=== PATIENT | female | born 1980 | race Caucasian/White ===

== ENCOUNTER 2016-10-09 23:25 | Emergency (ER) | payer OTHER ==
[2016-10-10 00:26] LABS: Basophils # (A) 0.1 k/uL (0-0.2); Basophils % (A) 1 %; CH 30.1; Eosinophils # (A) 0.2 k/uL (0-0.7); Eosinophils % (A) 3 %; HCT 44.2 % (34.0-46.0); HDW 2.48; HGB 14.6 gm/dL (11.4-16.0); Luc % (Auto) 4; Lymphocytes # (A) 3.2 k/uL (1.0-4.8); Lymphocytes % (A) 42 %; MCH 29.3 pg (25.0-35.0); Mean Platelet Volume 6.5; Monocytes # (A) 0.5 k/uL (0-1.0); Monocytes % (A) 7 %; Neutrophils # (A) 3.4 k/uL (1.3-7.7); Neutrophils % (A) 44 %; RBC 4.97 m/uL (3.80-5.40); RDW 12.8 % (11.5-15.5); WBC 7.7 k/uL (3.8-10.6); WBC (Perox) 7.56
[2016-10-10 00:39] LABS: ALT 29 U/L (9-52); AST 15 U/L (14-36); Alkaline Phosphatase 67 U/L (38-126); Amylase 39 U/L (30-110); Anion Gap 10 mmol/L; Blood Urea Nitrogen 11 mg/dL (7-17); Calcium 9.3 mg/dL (8.4-10.2); Carbon Dioxide 25 mmol/L (22-30); Chloride 103 mmol/L (98-107); Glucose 110 mg/dL (74-99); Magnesium 1.7 mg/dL (1.6-2.3); Non-African American GFR(MDRD) >60 (>60 ml/min/1.73 sqM); Potassium 3.7 mmol/L (3.5-5.1); Sodium 138 mmol/L (137-145); Total Bilirubin 0.4 mg/dL (0.2-1.3); Total Protein 6.9 g/dL (6.3-8.2)
--- NOTE | 2016-10-10 01:09 | XR ---
EXAM: XR Chest, 2 Views CLINICAL HISTORY: Reason: Chest Pain TECHNIQUE: Frontal and lateral views of the chest. COMPARISON: CXR 08/01/14 FINDINGS: Lungs: Unremarkable. No consolidation. Pleural space: Unremarkable. No pneumothorax. Heart: Unremarkable. No cardiomegaly. Mediastinum: Unremarkable. Bones/joints: Mild multilevel degenerative changes of the spine. IMPRESSION: Unremarkable chest x-rays.
--- NOTE | 2016-10-10 02:55 | ED ---
Chest Pain HPI - General Chief Complaint: Chest Pain Stated Complaint: chest/neck/head pain Time Seen by Provider: 10/09/16 23:42 Source: patient Mode of arrival: wheelchair Limitations: no limitations - History of Present Illness MD Complaint: chest pain, other (Headache) Onset/Timin -: hour(s) Onset: during rest Pain Location: substernal Pain Radiation: none Severity: moderate Quality: aching Consistency: intermittent Improves With: nothing Worsens With: nothing Treatments Prior to Arrival: none - Related Data Home Medications Medication Instructions Recorded Confirmed Omeprazole [PriLOSEC] 20 mg PO DAILY PRN 08/06/14 10/09/16 Cyclobenzaprine [Flexeril] 10 mg PO DAILY 12/21/15 10/09/16 Naproxen 500 mg PO DAILY 12/21/15 10/09/16 Acetaminophen Tab [Tylenol Tab] 1,000 mg PO DAILY 10/09/16 10/09/16 Allergies Allergy/AdvReac Type Severity Reaction Status Date / Time No Known Allergies Allergy Verified 10/09/16 23:46 Review of Systems ROS Statement: Those systems with pertinent positive or pertinent negative responses have been documented in the HPI. ROS Other: All systems not noted in ROS Statement are negative. Constitutional: Denies: fever, chills Eyes: Denies: vision change Respiratory: Denies: cough, dyspnea Cardiovascular: Denies: chest pain, palpitations, syncope Gastrointestinal: Denies: abdominal pain, nausea, vomiting Genitourinary: Denies: dysuria, hematuria Skin: Denies: rash Neurological: Reports: headache. Denies: weakness, numbness, paresthesias EKG Findings - EKG Results: EKG: interpreted by RASHMI FREEMAN, sinus rhythm (Rate 88 bpm), normal axis, normal QRS, normal ST/T, no acute changes Past Medical History Past Medical History: Coronary Artery Disease (CAD), Hyperlipidemia, Hypertension, Syncope Additional Past Medical History / Comment(s): Diverticulitis History of Any Multi-Drug Resistant Organisms: None Reported Past Surgical History: Adenoidectomy, Bowel Resection, Tonsillectomy Additional Past Surgical History / Comment(s): cyst removal from left wrist, Past Anesthesia/Blood Transfusion Reactions: No Reported Reaction Past Psychological History: Anxiety, Depression Smoking Status: Current every day smoker Past Alcohol Use History: None Reported Past Drug Use History: Marijuana - Past Family History Father Family Medical History: Hypertension, Syncope Mother Additional Family Medical History / Comment(s): - due to brain aneurysm General Exam Limitations: no limitations General appearance: alert, in no apparent distress, obese Head exam: Present: atraumatic, normocephalic Eye exam: Present: normal appearance. Absent: scleral icterus, conjunctival injection ENT exam: Present: normal oropharynx Neck exam: Present: normal inspection, full ROM. Absent: tenderness, meningismus Respiratory exam: Present: normal lung sounds bilaterally. Absent: respiratory distress, wheezes, rales, rhonchi, stridor Cardiovascular Exam: Present: regular rate, normal rhythm, normal heart sounds. Absent: systolic murmur, diastolic murmur, rubs, gallop GI/Abdominal exam: Present: soft. Absent: distended, tenderness, guarding, rebound, rigid Extremities exam: Present: normal inspection, normal capillary refill. Absent: pedal edema, calf tenderness Back exam: Present: normal inspection. Absent: CVA tenderness (R), CVA tenderness (L) Neurological exam: Present: alert, CN II-XII intact. Absent: motor sensory deficit Skin exam: Present: warm, dry, intact, normal color. 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
[2016-10-10 02:56] VITALS: RESP 18
[2016-10-10 03:11] VITALS: BP 133/74; PULSE 88; TEMP 97.7
== END 2016-10-10 03:11 | disposition home or self-care (01) ==
LOC: EC 23:25
DX: R07.2 Precordial pain (principal); R51 Headache; M54.2 Cervicalgia; I25.10 Atherosclerotic heart disease of native coronary artery without angina pectoris; I10 Essential (primary) hypertension; F17.200 Nicotine dependence, unspecified, uncomplicated; Z79.891 Long term (current) use of opiate analgesic; Z79.899 Other long term (current) drug therapy; Z82.49 Family history of ischemic heart disease and other diseases of the circulatory system
CPT/HCPCS: 36415; 71020; 80053; 82150; 83690; 83735; 84484; 85025; 93005; 99285

== ENCOUNTER 2017-04-20 11:45 | Emergency (ER) | payer OTHER ==
[2017-04-20] MEDS ORDERED: IBUPROFEN 600 MG TAB PO STA (12:27)
[2017-04-20] MEDS ORDERED: ACETAMINOPHEN TAB 500 MG TAB PO STA (12:27)
[2017-04-20] MEDS ORDERED: IPRATROPIUM-ALBUTEROL 3 ML NEB INHALATION STA (12:33)
--- NOTE | 2017-04-20 12:33 | ED ---
General Adult HPI - General Chief complaint: Shortness of Breath Stated complaint: Diff Breathing Time Seen by Provider: 04/20/17 11:50 Source: patient, RN notes reviewed Mode of arrival: EMS Limitations: no limitations - History of Present Illness Initial comments: 36-year-old female presents for cough fever like symptoms. She's been sick for the last few days. She states she's had a cough and irritation to the lungs. She states that she has had fevers. She states that she just does not feel well. She was concerned because she is not getting any better so she thought that she should be evaluated. She denies any nausea vomiting this time but states she did have that earlier in the illness. No 1 else is sick at home. She is smoker.Patient denies any recent chest pain, back pain, abdominal pain, nausea vomiting, numbness or tingling, dysuria or hematuria, constipation or diarrhea, headaches or visual changes, or any other current symptoms. - Related Data Home Medications Medication Instructions Recorded Confirmed Omeprazole [PriLOSEC] 20 mg PO DAILY 08/06/14 04/20/17 Hydrochlorothiazide [Hydrodiuril] 25 mg PO DAILY 04/20/17 04/20/17 amLODIPine [Norvasc] 10 mg PO DAILY 04/20/17 04/20/17 Previous Rx's Medication Instructions Recorded Albuterol Inhaler [Ventolin Hfa 1 - 2 puff INHALATION Q4-6H PRN #1 04/20/17 Inhaler] inhaler Albuterol Nebulized [Ventolin 2.5 mg INHALATION Q4H #20 nebu 04/20/17 Nebulized] Levofloxacin [Levaquin] 750 mg PO DAILY #7 tab 04/20/17 predniSONE 50 mg PO DAILY #5 tab 04/20/17 Allergies Allergy/AdvReac Type Severity Reaction Status Date / Time No Known Allergies Allergy Verified 04/20/17 12:40 Review of Systems ROS Statement: Those systems with pertinent positive or pertinent negative responses have been documented in the HPI. ROS Other: All systems not noted in ROS Statement are negative. Past Medical History Past Medical History: Coronary Artery Disease (CAD), Hyperlipidemia, Hypertension, Syncope Additional Past Medical History / Comment(s): Diverticulitis History of Any Multi-Drug Resistant Organisms: None Reported Past Surgical History: Adenoidectomy, Bowel Resection, Tonsillectomy Additional Past Surgical History / Comment(s): cyst removal from left wrist, Past Anesthesia/Blood Transfusion Reactions: No Reported Reaction Past Psychological History: Anxiety, Depression Smoking Status: Current every day smoker Past Alcohol Use History: None Reported Past Drug Use History: Marijuana - Past Family History Father Family Medical History: Hypertension, Syncope Mother Additional Family Medical History / Comment(s): - due to brain aneurysm General Exam - General Exam Comments Initial Comments: General: The patient is awake and alert, in no distress, and does not appear acutely ill. Eye: Pupils are equal, round and reactive to light, extra-ocular movements are intact; there is normal conjunctiva bilaterally. No signs of icterus. Ears, nose, mouth and throat: There are moist mucous membranes . Neck: The neck is supple, there is no tenderness. Cardiovascular: There is a regular rate and rhythm. No murmur, rub or gallop is appreciated. Respiratory: Lungs are clear to auscultation, respirations are non-labored, breath sounds are equal. He is, now stridor, rales, or rhonchi. Gastrointestinal: Soft, non-distended, non-tender abdomen without masses or organomegaly noted. There is no rebound or guarding present. No CVA tenderness. Bowel sounds are unremarkable. Back: There is no tenderness to palpation in the midline. There is no obvious deformity. No rashes noted. Musculoskeletal: Normal ROM, no tenderness, There is no pedal edema. There is no calf tenderness or swelling. Sensation intact. Pulses equal bilaterally 2+. Neurological: CN II-XII intact, There are no obvious motor or sensory deficits. Coordination appears grossly intact. Speech is normal. Skin: Skin is warm and dry and no rashes or lesions are noted. Psychiatric: Cooperative, appropriate mood & affect, normal judgment. Limitations: no limitations Course Vital Signs 04/20/17 04/20/17 04/20/17 12:00 12:22 12:23 Temperature 100.0 F H Pulse Rate 96 114 H Respiratory 26 H 22 22 Rate Blood Pressure 145/80 O2 Sat by Pulse 95 94 L Oximetry 04/20/17 04/20/17 04/20/17 13:11 13:21 13:49 Temperature 100.3 F H Pulse Rate 101 H 108 H 103 H Respiratory 22 Rate Blood Pressure 132/67 O2 Sat by Pulse 95 Oximetry 04/20/17 04/20/17 04/20/17 14:00 15:00 15:21 Temperature 99.8 F H Pulse Rate 103 H 105 H 108 H Respiratory 22 22 Rate Blood Pressure 134/71 O2 Sat by Pulse 95 98 Oximetry EKG Findings - EKG Comments: EKG Findings:: normal sinus rhythm 92 bpm, normal axis, no atopy, no S-T depressions or elevations, Medical Decision Making - Medical Decision Making 36-year-old female presents for fever and shortness of breath. This and patient 's lab work has been reviewed. As well as x-ray. This tenderness appear to be a developing pneumonia as well as bronchitis. We'll start her on steroids antibiotics inhaler for home she also has access to a breathing machine if her breathing treatments. It discuss follow-up return parameters. She is in agreement with this plan home and is comfortable with this. She is satting well even prior to the second breathing treatment. At this time the patient will be discharged. - Lab Data Result diagrams: 04/20/17 12:50 04/20/17 13:45 Lab Results 04/20/17 04/20/17 04/20/17 Range/Units 12:50 12:50 13:45 WBC 4.9 (3.8-10.6) k/uL RBC 4.67 (3.80-5.40) m/uL Hgb 13.7 (11.4-16.0) gm/dL Hct 40.4 (34.0-46.0) % MCV 86.5 (80.0-100.0) fL MCH 29.4 (25.0-35.0) pg MCHC 34.0 (31.0-37.0) g/dL RDW 14.3 (11.5-15.5) % Plt Count 140 L (150-450) k/uL Neutrophils % 78 % Lymphocytes % 14 % Monocytes % 5 % Eosinophils % 1 % Basophils % 1 % Neutrophils # 3.8 (1.3-7.7) k/uL Lymphocytes # 0.7 L (1.0-4.8) k/uL Monocytes # 0.2 (0-1.0) k/uL Eosinophils # 0.0 (0-0.7) k/uL Basophils # 0.0 (0-0.2) k/uL PT (9.0-12.0) sec INR (<1.2) APTT (22.0-30.0) sec Sodium 134 L (137-145) mmol/L Potassium 3.7 (3.5-5.1) mmol/L Chloride 106 (98-107) mmol/L Carbon Dioxide 19 L (22-30) mmol/L Anion Gap 9 mmol/L BUN 6 L (7-17) mg/dL Creatinine 0.60 (0.52-1.04) mg/dL Est GFR (MDRD) Af Amer >60 (>60 ml/min/1.73 sqM) Est GFR (MDRD) Non-Af >60 (>60 ml/min/1.73 sqM) Glucose 183 H (74-99) mg/dL Plasma Lactic Acid Hermes (0.7-2.0) mmol/L Calcium 8.2 L (8.4-10.2) mg/dL Total Bilirubin 0.3 (0.2-1.3) mg/dL AST 25 (14-36) U/L ALT 37 (9-52) U/L Alkaline Phosphatase 58 (38-126) U/L Total Protein 5.8 L (6.3-8.2) g/dL Albumin 3.3 L (3.5-5.0) g/dL Urine Color Yellow Urine Appearance Clear (Clear) Urine pH 6.0 (5.0-8.0) Ur Specific Moody 1.029 (1.001-1.035) Urine Protein 1+ H (Negative) Urine Glucose (UA) 4+ H (Negative) Urine Ketones Trace H (Negative) Urine Blood Large H (Negative) Urine Nitrite Negative (Negative) Urine Bilirubin Negative (Negative) Urine Urobilinogen 2.0 (<2.0) mg/dL Ur Leukocyte Esterase Negative (Negative) Urine RBC 1 (0-5) /hpf Urine WBC 4 (0-5) /hpf Ur Squamous Epith Cells 2 (0-4) /hpf Hyaline Casts 5 H (0-2) /lpf Urine Mucus Moderate H (None) /hpf Influenza Type A RNA (Not Detectd) Influenza Type B (PCR) (Not Detectd) 04/20/17 04/20/17 04/20/17 Range/Units 13:45 14:10 14:45 WBC (3.8-10.6) k/uL RBC (3.80-5.40) m/uL Hgb (11.4-16.0) gm/dL Hct (34.0-46.0) % MCV (80.0-100.0) fL MCH (25.0-35.0) pg MCHC (31.0-37.0) g/dL RDW (11.5-15.5) % Plt Count (150-450) k/uL Neutrophils % % Lymphocytes % % Monocytes % % Eosinophils % % Basophils % % Neutrophils # (1.3-7.7) k/uL Lymphocytes # (1.0-4.8) k/uL Monocytes # (0-1.0) k/uL Eosinophils # (0-0.7) k/uL Basophils # (0-0.2) k/uL PT 11.1 (9.0-12.0) sec INR 1.1 (<1.2) APTT 27.7 (22.0-30.0) sec Sodium (137-145) mmol/L Potassium (3.5-5.1) mmol/L Chloride (98-107) mmol/L Carbon Dioxide (22-30) mmol/L Anion Gap mmol/L BUN (7-17) mg/dL Creatinine (0.52-1.04) mg/dL Est GFR (MDRD) Af Amer (>60 ml/min/1.73 sqM) Est GFR (MDRD) Non-Af (>60 ml/min/1.73 sqM) Glucose (74-99) mg/dL Plasma Lactic Acid Hermes 1.2 (0.7-2.0) mmol/L Calcium (8.4-10.2) mg/dL Total Bilirubin (0.2-1.3) mg/dL AST (14-36) U/L ALT (9-52) U/L Alkaline Phosphatase (38-126) U/L Total Protein (6.3-8.2) g/dL Albumin (3.5-5.0) g/dL Urine Color Urine Appearance (Clear) Urine pH (5.0-8.0) Ur Specific Moody (1.001-1.035) Urine Protein (Negative) Urine Glucose (UA) (Negative) Urine Ketones (Negative) Urine Blood (Negative) Urine Nitrite (Negative) Urine Bilirubin (Negative) Urine Urobilinogen (<2.0) mg/dL Ur Leukocyte Esterase (Negative) Urine RBC (0-5) /hpf Urine WBC (0-5) /hpf Ur Squamous Epith Cells (0-4) /hpf Hyaline Casts (0-2) /lpf Urine Mucus (None) /hpf Influenza Type A RNA Not Detected (Not Detectd) Influenza Type B (PCR) Not Detected (Not Detectd) - Radiology Data Radiology results: report reviewed, image reviewed Disposition Clinical Impression: Acute bronchitis, Pneumonia Disposition: HOME SELF-CARE Condition: Stable Instructions: Acute Bronchitis (ED), Bacterial Pneumonia (ED) Additional Instructions: Please use medication as discussed. Please follow up with family doctor if symptoms have not improved over the next two days. Please return to the emergency room if your symptoms increase or worsen or for any other concerns. Prescriptions: Albuterol Inhaler [Ventolin Hfa Inhaler] 1 - 2 puff INHALATION Q4-6H PRN #1 inhaler PRN Reason: Cough Albuterol Nebulized [Ventolin Nebulized] 2.5 mg INHALATION Q4H #20 nebu Levofloxacin [Levaquin] 750 mg PO DAILY #7 tab predniSONE 50 mg PO DAILY #5 tab Referrals: Allyson Cameron MD [Primary Care Provider] - 1-2 days Time of Disposition: 15:31
[2017-04-20 13:04] LABS: Basophils % (A) 1 %; CH 28.9; CHCM 33.6; Eosinophils % (A) 1 %; HCT 40.4 % (34.0-46.0); HDW 2.76; HGB 13.7 gm/dL (11.4-16.0); Luc # (Auto) 0.08; Luc % (Auto) 2; Lymphocytes # (A) 0.7 k/uL (1.0-4.8); Lymphocytes % (A) 14 %; MCH 29.4 pg (25.0-35.0); MCV 86.5 fL (80.0-100.0); Mean Platelet Volume 9.5; Monocytes # (A) 0.2 k/uL (0-1.0); Monocytes % (A) 5 %; Neutrophils # (A) 3.8 k/uL (1.3-7.7); Neutrophils % (A) 78 %; RBC 4.67 m/uL (3.80-5.40); RDW 14.3 % (11.5-15.5); WBC 4.9 k/uL (3.8-10.6); WBC (Perox) 4.57
[2017-04-20] MEDS: SODIUM CHLORIDE 0.9% 500 ML IV SCH ×2 (13:04→14:19)
[2017-04-20 13:19] LABS: Appearance,Urine Clear (Clear); Bilirubin,Urine Negative (Negative); Glucose,Urine (UA) 4+ (Negative); Ketones,Urine Trace (Negative); Leukocyte Esterase,Urine Negative (Negative); Mucus,Urine Moderate /hpf; Nitrite,Urine Negative (Negative); Particle Count 8274; Protein,Urine 1+ (Negative); RBC,Urine 1 /hpf (0-5); Specific Gravity,Urine 1.029 (1.001-1.035); Squamous Epithelial Cell,Urine 2 /hpf (0-4); UA Billing (MACRO vs. MICRO) MICRO; WBC,Urine 4 /hpf (0-5)
--- NOTE | 2017-04-20 13:52 | XR ---
EXAMINATION TYPE: XR chest 2V DATE OF EXAM: 04/20/2017 COMPARISON: 10/10/2016 HISTORY: Chest pain TECHNIQUE: Single frontal view of the chest is obtained. FINDINGS: There is mild patchy infrahilar densities seen bilaterally which may reflect developing pneumonia. In addition there is peribronchial cuffing which may reflect underlying bronchitis. The cardiac silhouette size is within normal limits. The osseous structures are intact. IMPRESSION: 1. There is mild patchy infrahilar densities seen bilaterally which may reflect developing pneumonia . In addition there is peribronchial cuffing which may reflect underlying bronchitis.
[2017-04-20] MEDS ORDERED: methylPREDNISolone SOD SUCCI 125 MG/2 ML VIAL IV STA (13:58)
[2017-04-20] MEDS ORDERED: ALBUTEROL NEBULIZED 2.5 MG/3 ML INHALATION STA (13:58)
[2017-04-20 14:11] LABS: ALT 37 U/L (9-52); AST 25 U/L (14-36); Alkaline Phosphatase 58 U/L (38-126); Anion Gap 9 mmol/L; Blood Urea Nitrogen 6 mg/dL (7-17); Calcium 8.2 mg/dL (8.4-10.2); Carbon Dioxide 19 mmol/L (22-30); Chloride 106 mmol/L (98-107); Glucose 183 mg/dL (74-99); Non-African American GFR(MDRD) >60 (>60 ml/min/1.73 sqM); Potassium 3.7 mmol/L (3.5-5.1); Sodium 134 mmol/L (137-145); Total Bilirubin 0.3 mg/dL (0.2-1.3); Total Protein 5.8 g/dL (6.3-8.2)
[2017-04-20 14:13] LABS: INR 1.1 (<1.2); Partial Thromboplastin Time 27.7 sec (22.0-30.0); Prothrombin Time 11.1 sec (9.0-12.0)
[2017-04-20] MEDS ORDERED: LEVOFLOXACIN 750 MG TAB PO STA (14:39)
[2017-04-20 15:48] VITALS: BP 117/76; PULSE 116; RESP 17; TEMP 98.4
== END 2017-04-20 15:50 | disposition home or self-care (01) ==
LOC: EC 11:45
DX: J20.9 Acute bronchitis, unspecified (principal); J18.9 Pneumonia, unspecified organism; I25.10 Atherosclerotic heart disease of native coronary artery without angina pectoris; I10 Essential (primary) hypertension; F17.200 Nicotine dependence, unspecified, uncomplicated; Z79.899 Other long term (current) drug therapy
CPT/HCPCS: 96361 ×3; 96374 ×2; 99285 ×2; 36415; 94640 ×2; 93005; 80053; 83605; 85025; 85610; 85730; 81001; 87040; 87086; 87502; 71020; J2930

== ENCOUNTER 2017-04-22 14:24 | Inpatient (IN) | payer OTHER ==
[2017-04-22] MEDS ORDERED: methylPREDNISolone SOD SUCCI 125 MG/2 ML VIAL IV STA (15:56)
[2017-04-22] MEDS ORDERED: IPRATROPIUM-ALBUTEROL 3 ML NEB INHALATION STA ×2 (15:56→17:52)
[2017-04-22] MEDS ORDERED: HYDROmorphone 1 MG/ML 1 ML SYRINGE IVP STA (15:56)
[2017-04-22] MEDS ORDERED: ONDANSETRON 4 MG/2 ML VIAL IVP STA (15:56)
--- NOTE | 2017-04-22 16:16 | ED ---
General Adult HPI <Giovanni Massey - Last Filed: 04/22/17 18:10> - General Source: patient, RN notes reviewed Mode of arrival: wheelchair Limitations: no limitations <Gordon De Jesus - Last Filed: 04/22/17 18:13> - General Chief complaint: Shortness of Breath Stated complaint: pneumonia-revisit Time Seen by Provider: 04/22/17 15:51 - History of Present Illness Initial comments: Patient is a 36-year-old female who presents emergency room today with a chief complaint of increased cough congestion over the last week. Patient does admit that she was seen here the emergency room diagnosed with pneumonia 2 days ago and started on antibiotics and steroids. Patient states that she's also been trying some breathing treatments at home with some relief the symptoms. She does admit to increased cough congestion. Patient does admit to pain in her chest in the lower ribs from coughing. Patient denies any other complaints currently. Patient denies any recent fever, chills, back pain, abdominal pain, nausea or vomiting, numbness or tingling, dysuria or hematuria, constipation or diarrhea, headaches or visual changes, or any other complaints. (Gordon De Jesus) - Related Data Home Medications Medication Instructions Recorded Confirmed Omeprazole [PriLOSEC] 20 mg PO DAILY 08/06/14 04/22/17 Hydrochlorothiazide [Hydrodiuril] 25 mg PO DAILY 04/20/17 04/22/17 amLODIPine [Norvasc] 10 mg PO DAILY 04/20/17 04/22/17 Previous Rx's Medication Instructions Recorded Albuterol Inhaler [Ventolin Hfa 1 - 2 puff INHALATION Q4-6H PRN #1 04/20/17 Inhaler] inhaler Albuterol Nebulized [Ventolin 2.5 mg INHALATION Q4H #20 nebu 04/20/17 Nebulized] Levofloxacin [Levaquin] 750 mg PO DAILY #7 tab 04/20/17 predniSONE 50 mg PO DAILY #5 tab 04/20/17 Allergies Allergy/AdvReac Type Severity Reaction Status Date / Time No Known Allergies Allergy Verified 04/22/17 15:17 Review of Systems ROS Other: All systems not noted in ROS Statement are negative. <Giovanni Massey - Last Filed: 04/22/17 18:10> ROS Other: All systems not noted in ROS Statement are negative. <Gordon De Jesus - Last Filed: 04/22/17 18:13> ROS Statement: Those systems with pertinent positive or pertinent negative responses have been documented in the HPI. Past Medical History Past Medical History: Coronary Artery Disease (CAD), Hyperlipidemia, Hypertension, Syncope Additional Past Medical History / Comment(s): Diverticulitis History of Any Multi-Drug Resistant Organisms: None Reported Past Surgical History: Adenoidectomy, Bowel Resection, Tonsillectomy Additional Past Surgical History / Comment(s): cyst removal from left wrist, Past Anesthesia/Blood Transfusion Reactions: No Reported Reaction Past Psychological History: Anxiety, Depression Smoking Status: Current every day smoker Past Alcohol Use History: None Reported Past Drug Use History: Marijuana - Past Family History Father Family Medical History: Hypertension, Syncope Mother Additional Family Medical History / Comment(s): - due to brain aneurysm <De JesusGordon - Last Filed: 04/22/17 18:13> General Exam <Giovanin Masesy - Last Filed: 04/22/17 18:10> Limitations: no limitations <NealGorodn - Last Filed: 04/22/17 18:13> - General Exam Comments Initial Comments: General: The patient is awake and alert, in no distress, and does not appear acutely ill. Eye: Pupils are equal, round and reactive to light, extra-ocular movements are intact. No nystagmus. There is normal conjunctiva bilaterally. No signs of icterus. Ears, nose, mouth and throat: There are moist mucous membranes and no oral lesions. Neck: The neck is supple, there is no tenderness or JVD. Cardiovascular: There is a regular rate and rhythm. No murmur, rub or gallop is appreciated. Respiratory: Lungs are clear to auscultation, respirations are non-labored, breath sounds are equal. No wheezes, stridor, rales, or rhonchi. Gastrointestinal: Soft, non-distended, non-tender abdomen without masses or organomegaly noted. There is no rebound or guarding present. No CVA tenderness. Bowel sounds are unremarkable. Musculoskeletal: Normal ROM, no tenderness. Strength 5/5. Sensation intact. Pulses equal bilaterally 2+. Neurological: A&O x 3. CN II-XII intact, There are no obvious motor or sensory deficits. Coordination appears grossly intact. Speech is normal. Skin: Skin is warm and dry and no rashes or lesions are noted. Psychiatric: Cooperative, appropriate mood & affect, normal judgment. (Gordon De Jesus) Course <Giovanni Massey - Last Filed: 04/22/17 18:10> <Gordon De Jesus - Last Filed: 04/22/17 18:13> Vital Signs 04/22/17 04/22/17 04/22/17 14:52 16:31 17:05 Temperature 97.5 F L Pulse Rate 114 H 111 H 110 H Respiratory 24 24 Rate Blood Pressure 145/89 161/94 O2 Sat by Pulse 92 L 96 Oximetry 04/22/17 18:05 Temperature Pulse Rate 112 H Respiratory Rate Blood Pressure O2 Sat by Pulse Oximetry - Reevaluation(s) Reevaluation #1: 04/22/17 18:[address] Haley, who will admit for hospital call. X-ray and chart reviewed. Patient reevaluated by myself. Patient does have wheezing and is undergoing secondary Treatment. Patient and family were updated. (Giovanni Massey) Medical Decision Making - Lab Data Result diagrams: 04/22/17 16:24 04/22/17 16:24 <Giovanni Massey - Last Filed: 04/22/17 18:10> - Lab Data Result diagrams: 04/22/17 16:24 04/22/17 16:24 <Gordno De Jesus - Last Filed: 04/22/17 18:13> - Lab Data Lab Results 04/22/17 04/22/17 04/22/17 Range/Units 16:24 16:24 16:24 WBC 7.9 (3.8-10.6) k/uL RBC 4.53 (3.80-5.40) m/uL Hgb 13.4 (11.4-16.0) gm/dL Hct 40.0 (34.0-46.0) % MCV 88.4 (80.0-100.0) fL MCH 29.6 (25.0-35.0) pg MCHC 33.5 (31.0-37.0) g/dL RDW 14.5 (11.5-15.5) % Plt Count 231 (150-450) k/uL Neutrophils % 76 % Lymphocytes % 13 % Monocytes % 6 % Eosinophils % 0 % Basophils % 1 % Neutrophils # 6.0 (1.3-7.7) k/uL Lymphocytes # 1.0 (1.0-4.8) k/uL Monocytes # 0.4 (0-1.0) k/uL Eosinophils # 0.0 (0-0.7) k/uL Basophils # 0.1 (0-0.2) k/uL Manual Slide Review Performed RBC Morphology Normal PT (9.0-12.0) sec INR (<1.2) APTT (22.0-30.0) sec Sodium 136 L (137-145) mmol/L Potassium 3.7 (3.5-5.1) mmol/L Chloride 101 (98-107) mmol/L Carbon Dioxide 27 (22-30) mmol/L Anion Gap 8 mmol/L BUN 3 L (7-17) mg/dL Creatinine 0.60 (0.52-1.04) mg/dL Est GFR (MDRD) Af Amer >60 (>60 ml/min/1.73 sqM) Est GFR (MDRD) Non-Af >60 (>60 ml/min/1.73 sqM) Glucose 125 H (74-99) mg/dL Plasma Lactic Acid Hermes (0.7-2.0) mmol/L Calcium 8.7 (8.4-10.2) mg/dL Total Bilirubin 0.3 (0.2-1.3) mg/dL AST 36 (14-36) U/L ALT 36 (9-52) U/L Alkaline Phosphatase 67 (38-126) U/L Troponin I (0.000-0.034) ng/mL Total Protein 6.3 (6.3-8.2) g/dL Albumin 3.4 L (3.5-5.0) g/dL Urine Color Urine Appearance (Clear) Urine pH (5.0-8.0) Ur Specific [place] (1.001-1.035) Urine Protein (Negative) Urine Glucose (UA) (Negative) Urine Ketones (Negative) Urine Blood (Negative) Urine Nitrite (Negative) Urine Bilirubin (Negative) Urine Urobilinogen (<2.0) mg/dL Ur Leukocyte Esterase (Negative) Urine WBC (0-5) /hpf Ur Squamous Epith Cells (0-4) /hpf Urine Mucus (None) /hpf Urine HCG, Qual Not Detected (Not Detectd) 04/22/17 04/22/17 04/22/17 Range/Units 16:24 16:24 16:24 WBC (3.8-10.6) k/uL RBC (3.80-5.40) m/uL Hgb (11.4-16.0) gm/dL Hct (34.0-46.0) % MCV (80.0-100.0) fL MCH (25.0-35.0) pg MCHC (31.0-37.0) g/dL RDW (11.5-15.5) % Plt Count (150-450) k/uL Neutrophils % % Lymphocytes % % Monocytes % % Eosinophils % % Basophils % % Neutrophils # (1.3-7.7) k/uL Lymphocytes # (1.0-4.8) k/uL Monocytes # (0-1.0) k/uL Eosinophils # (0-0.7) k/uL Basophils # (0-0.2) k/uL Manual Slide Review RBC Morphology PT 10.6 (9.0-12.0) sec INR 1.0 (<1.2) APTT 22.9 (22.0-30.0) sec Sodium (137-145) mmol/L Potassium (3.5-5.1) mmol/L Chloride (98-107) mmol/L Carbon Dioxide (22-30) mmol/L Anion Gap mmol/L BUN (7-17) mg/dL Creatinine (0.52-1.04) mg/dL Est GFR (MDRD) Af Amer (>60 ml/min/1.73 sqM) Est GFR (MDRD) Non-Af (>60 ml/min/1.73 sqM) Glucose (74-99) mg/dL Plasma Lactic Acid Hermes 1.9 (0.7-2.0) mmol/L Calcium (8.4-10.2) mg/dL Total Bilirubin (0.2-1.3) mg/dL AST (14-36) U/L ALT (9-52) U/L Alkaline Phosphatase (38-126) U/L Troponin I <0.012 (0.000-0.034) ng/mL Total Protein (6.3-8.2) g/dL Albumin (3.5-5.0) g/dL Urine Color Urine Appearance (Clear) Urine pH (5.0-8.0) Ur Specific [place] (1.001-1.035) Urine Protein (Negative) Urine Glucose (UA) (Negative) Urine Ketones (Negative) Urine Blood (Negative) Urine Nitrite (Negative) Urine Bilirubin (Negative) Urine Urobilinogen (<2.0) mg/dL Ur Leukocyte Esterase (Negative) Urine WBC (0-5) /hpf Ur Squamous Epith Cells (0-4) /hpf Urine Mucus (None) /hpf Urine HCG, Qual (Not Detectd) 04/22/17 Range/Units 16:24 WBC (3.8-10.6) k/uL RBC (3.80-5.40) m/uL Hgb (11.4-16.0) gm/dL Hct (34.0-46.0) % MCV (80.0-100.0) fL MCH (25.0-35.0) pg MCHC (31.0-37.0) g/dL RDW (11.5-15.5) % Plt Count (150-450) k/uL Neutrophils % % Lymphocytes % % Monocytes % % Eosinophils % % Basophils % % Neutrophils # (1.3-7.7) k/uL Lymphocytes # (1.0-4.8) k/uL Monocytes # (0-1.0) k/uL Eosinophils # (0-0.7) k/uL Basophils # (0-0.2) k/uL Manual Slide Review RBC Morphology PT (9.0-12.0) sec INR (<1.2) APTT (22.0-30.0) sec Sodium (137-145) mmol/L Potassium (3.5-5.1) mmol/L Chloride (98-107) mmol/L Carbon Dioxide (22-30) mmol/L Anion Gap mmol/L BUN (7-17) mg/dL Creatinine (0.52-1.04) mg/dL Est GFR (MDRD) Af Amer (>60 ml/min/1.73 sqM) Est GFR (MDRD) Non-Af (>60 ml/min/1.73 sqM) Glucose (74-99) mg/dL Plasma Lactic Acid Hermes (0.7-2.0) mmol/L Calcium (8.4-10.2) mg/dL Total Bilirubin (0.2-1.3) mg/dL AST (14-36) U/L ALT (9-52) U/L Alkaline Phosphatase (38-126) U/L Troponin I (0.000-0.034) ng/mL Total Protein (6.3-8.2) g/dL Albumin (3.5-5.0) g/dL Urine Color Yellow Urine Appearance Clear (Clear) Urine pH 6.5 (5.0-8.0) Ur Specific [place] 1.008 (1.001-1.035) Urine Protein 1+ H (Negative) Urine Glucose (UA) Negative (Negative) Urine Ketones Negative (Negative) Urine Blood Trace H (Negative) Urine Nitrite Negative (Negative) Urine Bilirubin Negative (Negative) Urine Urobilinogen <2.0 (<2.0) mg/dL Ur Leukocyte Esterase Negative (Negative) Urine WBC 4 (0-5) /hpf Ur Squamous Epith Cells <1 (0-4) /hpf Urine Mucus Rare H (None) /hpf Urine HCG, Qual (Not Detectd) Disposition <Giovanni Massey - Last Filed: 04/22/17 18:10> Time of Disposition: 18:01 <Gordon De Jesus - Last Filed: 04/22/17 18:13> Clinical Impression: CAP (community acquired pneumonia) Disposition: ADMITTED IP TO THIS HOSP Condition: Stable Referrals: Allyson Cameron MD [Primary Care Provider] - 1-2 days
[2017-04-22 17:00] LABS: Aty Lym Flag Slight; Basophils # (A) 0.1 k/uL (0-0.2); Basophils % (A) 1 %; CH 29.3; CHCM 33.3; Eosinophils % (A) 0 %; HDW 2.59; HGB 13.4 gm/dL (11.4-16.0); Luc % (Auto) 5; Lymphocytes % (A) 13 %; MCH 29.6 pg (25.0-35.0); MCHC 33.5 g/dL (31.0-37.0); MCV 88.4 fL (80.0-100.0); Mean Platelet Volume 8.2; Monocytes # (A) 0.4 k/uL (0-1.0); Monocytes % (A) 6 %; Neutrophils % (A) 76 %; RBC 4.53 m/uL (3.80-5.40); RDW 14.5 % (11.5-15.5); WBC 7.9 k/uL (3.8-10.6); WBC (Perox) 8.37
[2017-04-22 17:05] LABS: Appearance,Urine Clear (Clear); Bilirubin,Urine Negative (Negative); Glucose,Urine (UA) Negative (Negative); Ketones,Urine Negative (Negative); Leukocyte Esterase,Urine Negative (Negative); Mucus,Urine Rare /hpf; Nitrite,Urine Negative (Negative); PH, Urine 6.5 (5.0-8.0); Particle Count 583; Protein,Urine 1+ (Negative); Specific Gravity,Urine 1.008 (1.001-1.035); Squamous Epithelial Cell,Urine <1 /hpf (0-4); UA Billing (MACRO vs. MICRO) MICRO; Urobilinogen,Urine <2.0 mg/dL (<2.0); WBC,Urine 4 /hpf (0-5)
[2017-04-22 17:13] LABS: ALT 36 U/L (9-52); AST 36 U/L (14-36); Alkaline Phosphatase 67 U/L (38-126); Anion Gap 8 mmol/L; Blood Urea Nitrogen 3 mg/dL (7-17); Calcium 8.7 mg/dL (8.4-10.2); Carbon Dioxide 27 mmol/L (22-30); Chloride 101 mmol/L (98-107); Glucose 125 mg/dL (74-99); Non-African American GFR(MDRD) >60 (>60 ml/min/1.73 sqM); Potassium 3.7 mmol/L (3.5-5.1); Sodium 136 mmol/L (137-145); Total Bilirubin 0.3 mg/dL (0.2-1.3); Total Protein 6.3 g/dL (6.3-8.2)
[2017-04-22 17:22] LABS: Manual Review Performed; RBC Morphology Normal
[2017-04-22 17:31] LABS: Partial Thromboplastin Time 22.9 sec (22.0-30.0); Prothrombin Time 10.6 sec (9.0-12.0)
--- NOTE | 2017-04-22 17:48 | XR ---
EXAMINATION TYPE: XR chest 2V DATE OF EXAM: 04/22/2017 COMPARISON: 04/20/2017 HISTORY: Cough TECHNIQUE: Frontal and lateral views of the chest are obtained. FINDINGS: Heart size is normal. There is some bulkiness of the pulmonary saad. There is a patchy ret icular nodular diffuse pulmonary infiltrate. Mediastinum is not widened. There is no sign of pleural effusion. IMPRESSION: Diffuse reticular nodular interstitial pulmonary infiltrate with apparent bronchial saul opathy. This could relate to sarcoidosis. Consider also acute interstitial pneumonia. Infiltrates are increased compared to recent exam of 04/20/2017.
[2017-04-22] MEDS ORDERED: SODIUM CHLORIDE 0.9% 1,000 ML IV STA ×2 (17:51)
[2017-04-22] MEDS ORDERED: PNEUMONIA PROTOCOL UTILIZED 1 EACH MISC PO PRN (18:11)
[2017-04-22] MEDS ORDERED: AZITHROMYCIN 500 MG in SODIUM CHLORIDE 0.9% 250 ML IVPB STA (18:15)
[2017-04-22] MEDS ORDERED: cefTRIAXone IN SWFI 1,000 MG/10 ML SYRINGE IVP STA (18:15)
[2017-04-22] MEDS ORDERED: CYCLOBENZAPRINE 10 MG TAB PO PRN (20:43)
[2017-04-22] MEDS ORDERED: FUROSEMIDE 10 MG/ML 2 ML VIAL IV ONE (20:48)
[2017-04-22] MEDS ORDERED: METOPROLOL TARTRATE 25 MG TAB PO STA (20:49)
[2017-04-22] MEDS: IPRATROPIUM-ALBUTEROL 3 ML NEB INHALATION PRN (21:10)
[2017-04-22] MEDS: ACETAMINOPHEN TAB 325 MG TAB PO PRN (22:35)
[2017-04-23] MEDS: methylPREDNISolone SOD SUCCI 125 MG/2 ML VIAL IV SCH ×4 (01:00→17:19)
[2017-04-23] MEDS: IPRATROPIUM-ALBUTEROL 3 ML NEB INHALATION PRN ×3 (03:40→11:29)
[2017-04-23] MEDS: amLODIPine 10 MG TAB PO SCH (09:11)
[2017-04-23] MEDS: ACETAMINOPHEN TAB 325 MG TAB PO PRN (09:14)
--- NOTE | 2017-04-23 09:34 | XR ---
EXAMINATION TYPE: XR chest 2V DATE OF EXAM: 04/23/2017 COMPARISON: Prior chest x-ray 04/22/[address] chest 08/06/2014 HISTORY: Pneumonia TECHNIQUE: Frontal and lateral views of the chest are obtained. FINDINGS: Nodular densities persist within the lungs. Interstitium is increased. No evident pneumoth orax or pleural effusion. Cardiomediastinal silhouette, pulmonary vascularity and saad are similar in appearance. Difficult to exclude mediastinal adenopathy. IMPRESSION: Bilateral pulmonary nodules. Mediastinal adenopathy. Interstitial lung disease.
[2017-04-23] MEDS: traMADol 50 MG TAB PO PRN ×3 (10:21→23:03)
[2017-04-23 11:44] LABS: Glucose,Whole Blood 270 mg/dL (75-99)
[2017-04-23] MEDS ORDERED: RX INFO: IV CONTRAST WAS GIVEN 1 EACH MISC MISCELLANE PRN (12:16)
--- NOTE | 2017-04-23 12:31 | P.CNPUL ---
History of Present Illness Consult date: 04/23/17 Requesting physician: Alcon Haley Reason for consult: dyspnea, abnormal CXR/CT (Bilateral pulmonary nodules. Mediastinal adenopathy. Interstitial lung disease.) Chief complaint: Shortness of breath, cough and congestion History of present illness: This is a very pleasant 36-year-old female patient who follows with Dr. Amol Rothman as her primary care physician. She has a history of hypertension, hyperlipidemia, anxiety/depression, chronic and ongoing tobacco dependence at greater than 1 pack per day for 20 years, marijuana use. She's not been seen by a machine joint cutter in the past. The patient presented to the emergency room on 04/20/2017 with complaints of increasing shortness of breath cough and fever, fatigue and weakness. Her chest x-ray revealed mild patchy infrahilar densities seen bilaterally suspicious for developing pneumonia. There is additional peribronchial cuffing for suspicious for underlying bronchitis. Influenza screen was negative. She was treated for acute bronchitis and discharged home on an albuterol inhaler, Levaquin 7 or 50 mg and prednisone 15 mg daily for 5 days. She will be presented here yesterday 04/22/2017 with worsening shortness of breath cough and congestion. She developed pain in her lower ribs from coughing. She did have some episodes of nausea and vomiting. She is seen today in consultation on the regular medical floor. She is awake and alert. She is in some mild respiratory distress. She is diaphoretic. Chest x-ray reveals nodular densities within the lungs. Interstitium is increased. Difficult to exclude mediastinal adenopathy. There is interstitial edema. No leukocytosis. She has been afebrile. Slightly diaphoretic. Slightly tachycardic. Maintaining O2 saturations in the low 90s on 2 L/m per nasal cannula. Hemodynamically stable. She's been initiated on ceftriaxone and azithromycin along with IV Solu-Medrol and bronchodilators. Review of Systems 14 point review of system was conducted. All negative other than as mentioned in the HPI. Past Medical History Past Medical History: Chest Pain / Angina, GERD/Reflux, Hyperlipidemia, Hypertension, Syncope Additional Past Medical History / Comment(s): Diverticulitis(bowel resection )m pssed stress test-"neg",2009 had 1 seizure and syncpoe-"thought to be d/t taking wellbutrin" has'nt had one since. History of Any Multi-Drug Resistant Organisms: None Reported Past Surgical History: Adenoidectomy, Bowel Resection, Tonsillectomy Additional Past Surgical History / Comment(s): cyst removal from left wrist, Past Anesthesia/Blood Transfusion Reactions: No Reported Reaction Smoking Status: Former smoker - Past Family History Father Family Medical History: Hypertension, Syncope Mother Additional Family Medical History / Comment(s): - due to brain aneurysm Medications and Allergies Home Medications Medication Instructions Recorded Confirmed Type Omeprazole [PriLOSEC] 20 mg PO DAILY 08/06/14 04/22/17 History Albuterol Inhaler [Ventolin Hfa 1 - 2 puff INHALATION Q4-6H PRN #1 04/20/1701/29 Rx Inhaler] inhaler Albuterol Nebulized [Ventolin 2.5 mg INHALATION Q4H #20 nebu 04/20/17 04/22/17 Rx Nebulized] Hydrochlorothiazide [Hydrodiuril] 25 mg PO DAILY 04/20/17 04/22/17 History Levofloxacin [Levaquin] 750 mg PO DAILY #7 tab 04/20/17 04/22/17 Rx amLODIPine [Norvasc] 10 mg PO DAILY 04/20/17 04/22/17 History predniSONE 50 mg PO DAILY #5 tab 04/20/17 04/22/17 Rx Allergies Allergy/AdvReac Type Severity Reaction Status Date / Time No Known Allergies Allergy Verified 04/22/17 15:17 Physical Exam Vitals: Vital Signs Temp Pulse Pulse Resp BP BP Pulse Ox 04/23/17 11:41 92 04/23/17 11:32 94 04/23/17 07:29 97 04/23/17 07:19 97 94 L 04/23/17 07:00 98.1 F 98 16 136/77 94 L 04/23/17 03:50 112 H 04/23/17 03:40 116 H 04/22/17 22:34 98.7 F 121 H 18 130/73 97 04/22/17 21:20 118 H 04/22/17 21:10 115 H 04/22/17 21:00 98.8 F 120 H 134/82 93 L 04/22/17 18:17 112 H 04/22/17 18:16 118 H 22 142/81 98 04/22/17 18:05 112 H 04/22/17 17:05 110 H 04/22/17 16:31 111 H 24 161/94 96 04/22/17 14:52 97.5 F L 114 H 24 145/89 92 L Intake and Output 04/22/17 04/23/17 04/23/17 22:59 06:59 14:59 Intake Total 1260 460 Balance 1260 460 Intake: Intake, IV Titration 1060 160 Amount Sodium Chloride 0.9% 1, 60 160 000 ml @ 20 mls/hr IV . Q24H STA Rx#:[id number] Sodium Chloride 0.9% 1, 1000 000 ml @ 999 mls/hr IV . Q1H1M STA Rx#:[id number] Oral 200 300 Other: Voiding Method Toilet Toilet # Voids 1 2 GENERAL EXAM: Alert, fairly comfortable in no apparent distress. HEAD: Normocephalic. EYES: Normal reaction of pupils, equal size. NOSE: Clear with pink turbinates. THROAT: No erythema or exudates. NECK: No masses, no JVD. CHEST: No chest wall deformity. LUNGS: Equal air entry with few scattered rhonchi, end expiratory wheeze. CVS: S1 and S2 normal with no audible murmur, regular rhythm. ABDOMEN: No hepatosplenomegaly, normal bowel sounds, no guarding or rigidity. SPINE: No scoliosis or deformity SKIN: No rashes CENTRAL NERVOUS SYSTEM: No focal deficits, tone is normal in all 4 extremities. EXTREMITIES: There is no peripheral edema. No clubbing, no cyanosis. Peripheral pulses are intact. Results - Laboratory Findings CBC and BMP: 04/22/17 16:24 04/22/17 16:24 PT/INR, D-dimer PT 10.6 sec (9.0-12.0) 04/22/17 16:24 INR 1.0 (<1.2) 04/22/17 16:24 Abnormal lab findings: Abnormal Labs 04/22/17 04/22/17 04/23/17 16:24 16:24 11:42 Sodium 136 L BUN 3 L Glucose 125 H POC Glucose (mg/dL) 270 H Albumin 3.4 L Urine Protein 1+ H Urine Blood Trace H Urine Mucus Rare H - Diagnostic Findings Chest x-ray: image reviewed Assessment and Plan Assessment: Impression: #1 Acute exacerbation of chronic obstructive pulmonary disease complicated by purulent tracheobronchitis, suspect early pneumonia more so on the left lower lung base. Failed outpatient treatment. #2 Acute hypoxic respiratory failure secondary to above. #3 Chronic and ongoing tobacco dependence. #4 Marijuana use. #5 Hyperlipidemia. #6 Hypertension. #7 Anxiety/depression. Plan: The patient was seen and evaluated by Dr. Gomez. Her chest x-ray and previous chest x-rays were reviewed. There is some increased changes in the perihilar regions in the left lower lung base. We will go ahead and order a CT scan of the chest with contrast. We'll continue with Rocephin and azithromycin. Will continue IV Solu-Medrol. We will utilize DuoNeb inhalations every 4 hours and add Pulmicort inhalations twice a day. We'll obtain a sputum sample. Blood cultures reveal no growth to date. Influenza screen was negative. We'll continue to follow and make further recommendations based on her clinical status. I, the cosigning physician, have performed a history and physical examination on the patient. Lung sounds have few scattered rhonchi, bilateral end expiratory wheeze. Maintaining good O2 saturations in the 90s on 2 L/m per nasal cannula. We'll obtain a computed tomography scan of the chest for further evaluation.. I have discussed the assessment and plan of care with my nurse practitioner, Di Bay. I attest the above documented note as dictated by her. Time with Patient: Greater than 30
[2017-04-23] MEDS: AZITHROMYCIN 500 MG TAB PO SCH (13:25)
[2017-04-23] MEDS: INSULIN ASPART 100 UNIT/ML 1 ML 10 ML VIAL SQ SCH ×3 (13:33→22:10)
[2017-04-23] MEDS: cefTRIAXone IN SWFI 1,000 MG/10 ML SYRINGE IVP SCH (13:33)
[2017-04-23] MEDS: IPRATROPIUM-ALBUTEROL 3 ML NEB INHALATION SCH ×3 (15:53→23:36)
--- NOTE | 2017-04-23 16:05 | P.HPIM ---
History of Present Illness H&P Date: 04/23/17 Chief Complaint: SOB, Cough, Fever This is a very pleasant 36-year-old female with PMH of hypertension, hyperlipidemia, anxiety/depression, chronic and ongoing tobacco dependence at greater than 1-1/2 pack per day for 20 +years, marijuana use. He r initial symptoms started about a week and a half ago in which the patient stated it began with a cough and slight fevers, she has a son who was experiencing symptoms at that times he did not seek any medical attention until 04/20/2017 where she presented to her primary care physician's office with with complaints of increasing shortness of breath cough and fever, fatigue and weakness. Her chest x-ray revealed mild patchy infrahilar densities seen bilaterally suspicious for developing pneumonia she was sent to the emergency room for further evaluation in which she was given a breathing treatment and this discharged on oral steroids and oral Levaquin patient had a dose of antibiotics on Thursday and Thursday however on Thursday patient's symptoms progressively worsen for which she returned to the emergency room with worsening shortness of breath along with muscle skeletal chest pain from cough she also developed episodes of nausea vomiting and persistent fevers, however that was not seen or documented in the chart she did present with tachycardia and diffuse wheezing and increased work of breathing. She had a repeated Chest x-ray that showed nodular densities within the lungs. Interstitium is increased. Difficult to exclude mediastinal adenopathy. No leukocytosis. She has been afebrile. Slightly diaphoretic. Slightly tachycardic. She is on supplemental O2 at 3 L Hemodynamically stable. She's been initiated on ceftriaxone and azithromycin along with IV Solu-Medrol and bronchodilators she states the breathing treatments have been helping her patient states that her cough is productive of a teaspoon size sputum that's dark brown in color. Patient seen and evaluated by pulmonology, patient stated that her symptoms have improved since admission however she is not completely back to her baseline Review of Systems Constitutional: Reports as per HPI, Reports fever, Reports lethargy, Reports poor appetite, Reports sweats, Denies chronic headaches, Denies chronic pain Ears, nose, mouth and throat: Reports headache, Reports nasal discharge Cardiovascular: Reports palpitations, Reports shortness of breath, Denies chest pain, Denies dyspnea on exertion, Denies edema, Denies high blood pressure, Denies irregular heart beat, Denies orthopnea, Denies syncope Respiratory: Reports congestion, Reports cough with sputum, Reports dyspnea, Reports excessive sputum, Reports pain on inspiration, Reports pleurisy, Reports respiratory infections, Reports wheezing, Denies hemoptysis, Denies home oxygen, Denies sleep apnea Gastrointestinal: Denies abdominal pain, Denies belching, Denies constipation, Denies diarrhea, Denies dyspepsia, Denies hematemesis, Denies hematochezia, Denies indigestion, Denies nausea, Denies vomiting Genitourinary: Denies dysuria, Denies hematuria, Denies urge incontinence, Denies urgency Musculoskeletal: Reports as per HPI Integumentary: Reports as per HPI Neurological: Reports as per HPI Psychiatric: Reports as per HPI Endocrine: Reports as per HPI Past Medical History Past Medical History: Chest Pain / Angina, GERD/Reflux, Hyperlipidemia, Hypertension, Syncope Additional Past Medical History / Comment(s): Diverticulitis(bowel resection )m pssed stress test-"neg",2009 had 1 seizure and syncpoe-"thought to be d/t taking wellbutrin" has'nt had one since. History of Any Multi-Drug Resistant Organisms: None Reported Past Surgical History: Adenoidectomy, Bowel Resection, Tonsillectomy Additional Past Surgical History / Comment(s): cyst removal from left wrist, Past Anesthesia/Blood Transfusion Reactions: No Reported Reaction Smoking Status: Former smoker - Past Family History Father Family Medical History: Hypertension, Syncope Mother Additional Family Medical History / Comment(s): - due to brain aneurysm Medications and Allergies Home Medications Medication Instructions Recorded Confirmed Type Omeprazole [PriLOSEC] 20 mg PO DAILY 08/06/14 04/22/17 History Albuterol Inhaler [Ventolin Hfa 1 - 2 puff INHALATION Q4-6H PRN #1 04/20/1701/29 Rx Inhaler] inhaler Albuterol Nebulized [Ventolin 2.5 mg INHALATION Q4H #20 nebu 04/20/17 04/22/17 Rx Nebulized] Hydrochlorothiazide [Hydrodiuril] 25 mg PO DAILY 04/20/17 04/22/17 History Levofloxacin [Levaquin] 750 mg PO DAILY #7 tab 04/20/17 04/22/17 Rx amLODIPine [Norvasc] 10 mg PO DAILY 04/20/17 04/22/17 History predniSONE 50 mg PO DAILY #5 tab 04/20/17 04/22/17 Rx Allergies Allergy/AdvReac Type Severity Reaction Status Date / Time No Known Allergies Allergy Verified 04/22/17 15:17 Physical Exam Vitals: Vital Signs Temp Pulse Pulse Resp BP BP Pulse Ox 04/23/17 15:00 98.3 F 119 H 18 124/66 91 L 04/23/17 11:41 92 04/23/17 11:32 94 04/23/17 07:29 97 04/23/17 07:19 97 94 L 04/23/17 07:00 98.1 F 98 16 136/77 94 L 04/23/17 03:50 112 H 04/23/17 03:40 116 H 04/22/17 22:34 98.7 F 121 H 18 130/73 97 04/22/17 21:20 118 H 04/22/17 21:10 115 H 04/22/17 21:00 98.8 F 120 H 134/82 93 L 04/22/17 18:17 112 H 04/22/17 18:16 118 H 22 142/81 98 04/22/17 18:05 112 H 04/22/17 17:05 110 H 04/22/17 16:31 111 H 24 161/94 96 Intake and Output 04/23/17 04/23/17 04/23/17 06:59 14:59 22:59 Intake Total 460 160 Balance 460 160 Intake: IV 160 Sodium Chloride 0.9% 1, 160 000 ml @ 20 mls/hr IV . Q24H STA Rx#:[id number] Intake, IV Titration 160 Amount Sodium Chloride 0.9% 1, 160 000 ml @ 20 mls/hr IV . Q24H STA Rx#:[id number] Oral 300 Other: Voiding Method Toilet Toilet # Voids 2 GENERAL EXAM: This is a 36-year-old female who is awake Alert and oriented 4 she has a flushed appearance slightly diaphoretic is calm and cooperative in no acute distress, HEAD: Normocephali atraumatic EYES: Extraocular muscles are intact, pupils are equal reactive to light bilaterally conjunctiva is clear sclerae white nor evidence of conjunctival hemorrhage NOSE: Clear with pink turbinates. No excessive drainage. THROAT: No erythema or exudates. NECK: No masses, no JVD. Respiratory breath sounds are transmitted and heard in the neck CHEST: No chest wall deformity there is chest wall tenderness on palpation on bilateral lower rib cages. LUNGS: Equal bilateral air entry with few scattered rhonchi, end expiratory wheeze. There is symmetrical chest wall expansion there is no use of accessory muscle respiration. no conversational dyspnea noted CVS: S1 and S2 normal with no audible murmur, regular rhythm. ABDOMEN: Obese No hepatosplenomegaly, normal bowel sounds, no guarding or rigidity. SPINE: No scoliosis or deformity SKIN: No rashes CENTRAL NERVOUS SYSTEM: No focal deficits, tone is normal in all 4 extremities. Face is symmetrical no droop or speech is clear and coherent EXTREMITIES: There is no peripheral edema. No clubbing, no cyanosis. Peripheral pulses are intact Results CBC & Chem 7: 04/22/17 16:24 04/22/17 16:24 Labs: Abnormal Lab Results - Last 24 Hours (Table) 04/22/17 04/22/17 04/23/17 Range/Units 16:24 16:24 11:42 Sodium 136 L (137-145) mmol/L BUN 3 L (7-17) mg/dL Glucose 125 H (74-99) mg/dL POC Glucose (mg/dL) 270 H (75-99) mg/dL Albumin 3.4 L (3.5-5.0) g/dL Urine Protein 1+ H (Negative) Urine Blood Trace H (Negative) Urine Mucus Rare H (None) /hpf Microbiology - Last 24 Hours (Table) 04/22/17 16:24 Urine Culture - Preliminary Urine,Clean Catch Thrombosis Risk Factor Assmnt - Choose All That Apply Any of the Below Risk Factors Present?: Yes Each Factor Represents 1 point: Obesity (BMI >25), Serious lung disease incl. pneumonia (< 1month) Other Risk Factors: No Other congenital or acquired thrombophilia - If yes, enter type in comment: No Thrombosis Risk Factor Assessment Total Risk Factor Score: 2 Thrombosis Risk Factor Assessment Level: Low Risk Assessment and Plan Assessment: #1 Acute exacerbation of chronic obstructive pulmonary disease complicated by purulent tracheobronchitis, suspect early pneumonia more so on the left lower lung base. Failed outpatient treatment she was started on Levaquin by mouth on 04/20/2017 only had 2 doses she returns back patient started on azithromycin IV and Rocephin IV. The mycin transition to oral patient placed on IV Solu-Medrol 60 every 6 along with scheduled breathing treatments with DuoNeb she was started on inhalation bronchodilators with Pulmicort, pulmonology is following #2 Acute hypoxic respiratory failure secondary to above patient placed on supplemental oxygen should be weaned off per protocol patient continues in sinus spirometer. #3 Chronic and ongoing tobacco dependence patient was counseled for greater than 10 minutes on the half of effects of smoking and health she was encouraged to quit she was instructed if she will need pharmacological assistance to follow up with her primary care. #4 hyperglycemia is noted elevated glucose on an lab. This could be secondary to recent steroid use but given his patient possibly underlying metabolic syndrome patient will be checked with a hemoglobin A1c to be added on morning labs patient to have her blood sugars checked before meals at bedtime and cover with insulin sliding scale with mild correction factor blood sugar levels between 140-180 #5 Hyperlipidemia. Continue medications #6 Hypertension. Continue home medications and continue to monitor #7 Anxiety/depression. #8 Marijuana use. 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
--- NOTE | 2017-04-23 16:47 | CT ---
EXAMINATION TYPE: CT chest w con DATE OF EXAM: 04/23/2017 COMPARISON: 08/09/2014 HISTORY: Dyspnea and pneumonia. CT DLP: 551.9 mGycm Automated exposure control for dose reduction was used. CONTRAST: CT scan of the chest is performed with IV Contrast, patient injected with 100 mL of Omnipaque 300. FINDINGS: There is a patchy groundglass interstitial infiltrate in the mid and upper lung woodruff. There is airs pace consolidation in the right paraspinal right lower lobe. There is patchy interstitial and alveola r infiltrate in the lower lung woodruff bilaterally. There is no pleural effusion. Heart size is normal . There is no pericardial effusion. There is a 1 cm paratracheal lymph node. There is no sign of aortic aneurysm or dissection. There are small bilateral bronchial lymph nodes. The bony thorax is intact. There is spurring in the lower tho racic spine. IMPRESSION: There are new bilateral upper and lower lobe interstitial and alveolar pulmonary infiltr ates compared to old exam consistent with inflammatory disease. Single mildly enlarged peritracheal l ymph node is new compared to old exam. Normal heart.
[2017-04-23 17:41] LABS: Glucose,Whole Blood 252 mg/dL (75-99)
[2017-04-23] MEDS: BUDESONIDE 1 MG/2 ML NEBU INHALATION SCH (19:45)
[2017-04-23 20:24] LABS: Glucose,Whole Blood 312 mg/dL (75-99)
[2017-04-23] MEDS ORDERED: INSULIN ASPART 100 UNIT/ML 1 ML 10 ML VIAL SQ ONE (21:33)
[2017-04-23] MEDS: INSULIN DETEMIR 100 UNIT/ML 10 ML VIAL SQ SCH (21:53)
[2017-04-24] MEDS: methylPREDNISolone SOD SUCCI 125 MG/2 ML VIAL IV SCH ×5 (01:04→23:47)
[2017-04-24] MEDS: IPRATROPIUM-ALBUTEROL 3 ML NEB INHALATION SCH ×6 (04:03→23:59)
[2017-04-24 07:29] LABS: Glucose,Whole Blood 239 mg/dL (75-99)
[2017-04-24] MEDS: traMADol 50 MG TAB PO PRN ×2 (07:37→15:50)
[2017-04-24] MEDS: AZITHROMYCIN 500 MG TAB PO SCH (07:40)
[2017-04-24] MEDS: amLODIPine 10 MG TAB PO SCH (07:40)
[2017-04-24 07:41] LABS: Basophils % (A) 0 %; CH 29.2; CHCM 32.3; Eosinophils % (A) 0 %; HDW 2.74; HGB 12.1 gm/dL (11.4-16.0); Luc # (Auto) 0.22; Luc % (Auto) 4; Lymphocytes # (A) 0.8 k/uL (1.0-4.8); Lymphocytes % (A) 13 %; MCH 28.8 pg (25.0-35.0); MCHC 31.7 g/dL (31.0-37.0); MCV 90.8 fL (80.0-100.0); Mean Platelet Volume 7.1; Monocytes # (A) 0.3 k/uL (0-1.0); Monocytes % (A) 5 %; Neutrophils % (A) 78 %; RBC 4.18 m/uL (3.80-5.40); RDW 12.9 % (11.5-15.5); WBC 6.4 k/uL (3.8-10.6); WBC (Perox) 6.43
[2017-04-24] MEDS: INSULIN ASPART 100 UNIT/ML 1 ML 10 ML VIAL SQ SCH ×7 (07:47→22:20)
[2017-04-24 07:56] LABS: ALT 39 U/L (9-52); AST 16 U/L (14-36); Alkaline Phosphatase 60 U/L (38-126); Anion Gap 5 mmol/L; Blood Urea Nitrogen 11 mg/dL (7-17); Carbon Dioxide 30 mmol/L (22-30); Chloride 103 mmol/L (98-107); Cholesterol 159 mg/dL (<200); Glucose 247 mg/dL (74-99); HDL Cholesterol 32 mg/dL (40-60); Non-African American GFR(MDRD) >60 (>60 ml/min/1.73 sqM); Potassium 4.4 mmol/L (3.5-5.1); Sodium 138 mmol/L (137-145); Total Bilirubin 0.2 mg/dL (0.2-1.3); Total Protein 6.1 g/dL (6.3-8.2)
[2017-04-24] MEDS: BUDESONIDE 1 MG/2 ML NEBU INHALATION SCH ×2 (08:30→19:48)
--- NOTE | 2017-04-24 09:16 | XR ---
EXAMINATION TYPE: XR chest 2V DATE OF EXAM: 04/24/2017 COMPARISON: Prior chest x-ray 04/23/2017 HISTORY: Pneumonia TECHNIQUE: Frontal and lateral views of the chest are obtained. FINDINGS: Findings are similar to prior exam. There is mediastinal adenopathy, there are bilateral n odules, interstitium is increased. No evident pneumothorax or pleural effusion. Heart is stable. IMPRESSION: Stable findings. Findings could be indicative of sarcoid or granulomatous disease, corre late for alveolitis, pneumonia. Follow-up recommended. .
[2017-04-24] MEDS: cefTRIAXone IN SWFI 1,000 MG/10 ML SYRINGE IVP SCH (10:04)
[2017-04-24 11:24] LABS: Glucose,Whole Blood 260 mg/dL (75-99)
--- NOTE | 2017-04-24 12:30 | P.PN ---
Subjective Progress Note Date: 04/24/17 Principal diagnosis: Bilateral pneumonia, community-acquired This is a very pleasant 36-year-old female patient who follows with Dr. Amol Rothman as her primary care physician. She has a history of hypertension, hyperlipidemia, anxiety/depression, chronic and ongoing tobacco dependence at greater than 1 pack per day for 20 years, marijuana use. She's not been seen by a group home counselor in the past. The patient presented to the emergency room on 04/20/2017 with complaints of increasing shortness of breath cough and fever, fatigue and weakness. Her chest x-ray revealed mild patchy infrahilar densities seen bilaterally suspicious for developing pneumonia. There is additional peribronchial cuffing for suspicious for underlying bronchitis. Influenza screen was negative. She was treated for acute bronchitis and discharged home on an albuterol inhaler, Levaquin 7 or 50 mg and prednisone 15 mg daily for 5 days. She will be presented here yesterday 04/22/2017 with worsening shortness of breath cough and congestion. She developed pain in her lower ribs from coughing. She did have some episodes of nausea and vomiting. She is seen today in consultation on the regular medical floor. She is awake and alert. She is in some mild respiratory distress. She is diaphoretic. Chest x-ray reveals nodular densities within the lungs. Interstitium is increased. Difficult to exclude mediastinal adenopathy. There is interstitial edema. No leukocytosis. She has been afebrile. Slightly diaphoretic. Slightly tachycardic. Maintaining O2 saturations in the low 90s on 2 L/m per nasal cannula. Hemodynamically stable. She's been initiated on ceftriaxone and azithromycin along with IV Solu-Medrol and bronchodilators. On 04/24/2017 patient seen in follow-up on medical surgical floor. She still complains of chest tightness, diaphoresis, shortness of breath, weakness and chest congestion. She is not able to expectorate any sputum. She appears flushed, fatigued, but in no acute distress. She remains slightly tachycardic with heart rate in the 110's, on 3 L per nasal cannula with O2 sat 92%. Her T- max since admission has been 99F on 04/23/2017 at 2224. Blood and urine culture showed no growth. Patient continues on Zithromax, Rocephin, IV Solu- Medrol. CT chest from 04/23/2017 has been reviewed by Dr. Goemz and shows new bilateral upper and lower lobe and interstitial and alveolar pulmonary infiltrates, a new mildly enlarged single peritracheal lymph node noted compared to the old exam on 08/09/2014. Objective - Vital Signs Vital signs: Vital Signs Temp 98.8 F 04/24/17 07:00 Pulse 112 H 04/24/17 11:59 Resp 16 04/24/17 08:00 BP 136/88 04/24/17 07:00 Pulse Ox 92 L 04/24/17 08:32 Intake & Output 04/23/17 04/24/17 04/24/17 18:59 06:59 18:59 Intake Total 160 880 300 Balance 160 880 300 Weight 111.13 kg Intake: IV 160 80 Sodium Chloride 0.9% 1, 160 80 000 ml @ 20 mls/hr IV . Q24H STA Rx#:[id number] Intake, IV Titration 140 Amount Sodium Chloride 0.9% 1, 140 000 ml @ 20 mls/hr IV . Q24H STA Rx#:[id number] Oral 660 300 Other: Voiding Method Toilet Toilet # Voids 2 - Exam GENERAL EXAM: Alert, fairly comfortable in no apparent distress. HEAD: Normocephalic. EYES: Normal reaction of pupils, equal size. NOSE: Clear with pink turbinates. THROAT: No erythema or exudates. NECK: No masses, no JVD. CHEST: No chest wall deformity. LUNGS: Equal air entry with few scattered rhonchi, end expiratory wheeze. CVS: S1 and S2 normal with no audible murmur, regular rhythm. ABDOMEN: No hepatosplenomegaly, normal bowel sounds, no guarding or rigidity. SPINE: No scoliosis or deformity SKIN: No rashes CENTRAL NERVOUS SYSTEM: No focal deficits, tone is normal in all 4 extremities. EXTREMITIES: There is no peripheral edema. No clubbing, no cyanosis. Peripheral pulses are intact. - Labs CBC & Chem 7: 04/24/17 07:22 04/24/17 07:22 Labs: Abnormal Lab Results - Last 24 Hours (Table) 04/23/17 04/23/17 04/24/17 Range/Units 17:37 20:22 07:18 Lymphocytes # (1.0-4.8) k/uL Glucose (74-99) mg/dL POC Glucose (mg/dL) 252 H 312 H 239 H (75-99) mg/dL Total Protein (6.3-8.2) g/dL Albumin (3.5-5.0) g/dL Triglycerides (<150) mg/dL HDL Cholesterol (40-60) mg/dL 04/24/17 04/24/17 04/24/17 Range/Units 07:22 07:22 11:21 Lymphocytes # 0.8 L (1.0-4.8) k/uL Glucose 247 H (74-99) mg/dL POC Glucose (mg/dL) 260 H (75-99) mg/dL Total Protein 6.1 L (6.3-8.2) g/dL Albumin 3.2 L (3.5-5.0) g/dL Triglycerides 163 H (<150) mg/dL HDL Cholesterol 32 L (40-60) mg/dL Microbiology - Last 24 Hours (Table) 04/22/17 16:24 Urine Culture - Final Urine,Clean Catch 04/22/17 16:24 Blood Culture - Preliminary Blood No Growth after 24 hours Assessment and Plan Plan: Assessment and Plan Assessment: Impression: #1. Acute bilateral upper and lower interstitial and alveolar infiltrates, with a small pretracheal lymph node, likely due to bacterial pneumonia, community-acquired with reactive lymphadenopathy. Sarcoidosis is unlikely, based on on the single small lymph node. We'll obtain angiotensin I converting enzyme level. Continue treating with empiric antibiotics, patient may have to have bronchoscopy with bronchoalveolar lavage if there is lack of improvement. #1 Acute exacerbation of chronic obstructive pulmonary disease failed outpatient treatment. #2 Acute hypoxic respiratory failure secondary to above. #3 Chronic and ongoing tobacco dependence. #4 Marijuana use. #5 Hyperlipidemia. #6 Hypertension. #7 Anxiety/depression. Plan: Patient's chest x-ray and CT scan of the chest was reviewed by Dr. Gomez. There are bilateral upper and lower lobe interstitial and alveolar pulmonary infiltrates with a new single mildly enlarged peritracheal lymph node, likely due to bacterial pneumonia with reactive lymphadenopathy. Obtain angiotensin I converting enzyme level. We'll continue with Rocephin and azithromycin. Will continue IV Solu-Medrol. We will utilize DuoNeb inhalations every 4 hours and add Pulmicort inhalations twice a day. Unable to obtain a sputum sample, she is unable to expectorate anything. Clinically she continues to have chest tightness, chest congestion, nonproductive congested cough, weakness, fatigue, she is diaphoretic and slightly tachycardic. If she shows no improvement in the next 48 hours, we will have to proceed with bronchoscopy with bronchoalveolar lavage. I performed a history & physical examination of the patient and discussed their management with my nurse practitioner, Alona Morillo. Patient's CAT scan of the chest was reviewed. Continue with empiric antibiotics of Rocephin and azithromycin. May have to schedule for bronchoscopy with BAL if there is lack of improvement in the next 48 hours. I reviewed the nurse practitioner's note and agree with the documented findings and plan of care. Lung sounds are positive for diffuse wheezes, rhonchi. The findings and the impression was discussed with the patient. I attest to the documentation by the nurse practitioner. Time with Patient: Less than 30
[2017-04-24] MEDS ORDERED: TEMAZEPAM 15 MG CAP PO PRN (17:05)
[2017-04-24 17:34] LABS: Glucose,Whole Blood 230 mg/dL (75-99)
[2017-04-24] MEDS: HYDROmorphone 1 MG/ML 1 ML SYRINGE IVP PRN (19:37)
--- NOTE | 2017-04-24 19:58 | PN ---
PROGRESS NOTE DATE OF SERVICE: 04/24/2017 This 36-year-old woman with a past history of multiple medical problems including history of bronchitis, being followed by Dr. Valadez in the outpatient admitted with significant difficulties with interstitial pneumonia bilaterally with failure of outpatient treatment. The patient has had significant shortness of breath. The patient is being closely monitored. Dr. Gomez is following the patient closely. There is no history of fever, rigors or chills. PAST MEDICAL HISTORY: Reviewed. REVIEW OF SYSTEMS: CARDIOVASCULAR: No angina. RESPIRATORY: As mentioned earlier. GI: No nausea. : As mentioned earlier. NERVOUS SYSTEM: No numbness or weakness. CURRENT MEDICATIONS: Reviewed and include: 1. Tylenol 325 mg q.4h p.r.n. 2. DuoNeb q.i.d. and p.r.n. 3. Norvasc 10 mg daily. 4. Zithromax 500 mg daily. 5. Pulmicort 1 mg b.i.d. 6. Rocephin 1 g daily. 7. Flexeril 10 mg b.i.d. p.r.n. 8. NovoLog scale. 9. Levemir 10 units subcu q.h.s. 10.Solu-Medrol 60 IV q.6. 11.Ultram 50 mg q.6h p.r.n. PHYSICAL EXAM: Patient is alert, oriented x3. Pulse 113, blood pressure 133/60, respiration 18, temperature 98.4, pulse ox 94% on 2 L. HEENT: Conjunctivae normal. Oral mucosa moist. NECK: No jugular venous distention. No carotid bruit. No lymph node enlargement. CARDIOVASCULAR: S1, S2. RESPIRATORY: Breath sounds diminished at the bases. Scattered rhonchi and crackles. Expiratory wheezing and crackles. ABDOMEN: Soft, nontender. LEGS: No edema. NERVOUS SYSTEM: No focal deficits. LABS: CBC within normal. Glucose noted. Otherwise, total protein 6.1. ASSESSMENT: 1. Chronic obstructive pulmonary disease acute exacerbation with acute bilateral pneumonia possibly bronchopneumonia gram-negative. 2. Acute hypoxic respiratory failure secondary to pneumonia. 3. History of nicotine dependence. 4. Hyperglycemia secondary to steroids. 5. Hyperlipidemia. 6. Hypertension. 7. Anxiety and depression. RECOMMENDATIONS AND DISCUSSION: This 36-year-old woman who presented with multiple complex medical issues. Will monitor the patient closely. Continue the current medications and continue symptomatic treatment. Continue broad spectrum IV antibiotics. Continue with the steroids. Continue with bronchodilators and also recommend to add DVT prophylaxis to the current regimen. Otherwise symptomatic treatment also will be provided. Proton pump inhibitors also offered. Otherwise prognosis guarded because of multiple complex medical issues and further recommendations. Bonifacio-Hector evans and wilfred and Dr. Gomez's input appreciated. Further recommendations to follow. We will also obtain repeat labs because of multiple complex medical issues and because of the fact that the patient is on diuretics. See orders for further details. I discussed with the patient and further recommendation to follow. Chest x-ray was personally reviewed by me. VALE / LISBETH: [id number] /
[2017-04-24 20:16] LABS: Glucose,Whole Blood 266 mg/dL (75-99)
[2017-04-24] MEDS: INSULIN DETEMIR 100 UNIT/ML 10 ML VIAL SQ SCH (22:20)
[2017-04-24] MEDS: HEPARIN SODIUM,PORCINE 5,000 UNIT/ML 1 ML VIAL SQ SCH (22:20)
[2017-04-25] MEDS: IPRATROPIUM-ALBUTEROL 3 ML NEB INHALATION SCH ×6 (03:31→23:38)
[2017-04-25] MEDS: methylPREDNISolone SOD SUCCI 125 MG/2 ML VIAL IV SCH ×3 (06:28→17:56)
[2017-04-25 07:07] LABS: Basophils % (A) 0 %; CH 28.5; Eosinophils % (A) 0 %; HCT 36.4 % (34.0-46.0); HDW 2.45; HGB 11.7 gm/dL (11.4-16.0); Luc # (Auto) 0.12; Luc % (Auto) 2; Lymphocytes # (A) 0.8 k/uL (1.0-4.8); Lymphocytes % (A) 11 %; MCH 28.9 pg (25.0-35.0); MCHC 32.2 g/dL (31.0-37.0); MCV 89.6 fL (80.0-100.0); Mean Platelet Volume 7.3; Monocytes # (A) 0.3 k/uL (0-1.0); Monocytes % (A) 4 %; Neutrophils # (A) 6.2 k/uL (1.3-7.7); Neutrophils % (A) 83 %; RBC 4.06 m/uL (3.80-5.40); RDW 14.4 % (11.5-15.5); WBC 7.4 k/uL (3.8-10.6); WBC (Perox) 7.79
[2017-04-25 07:24] LABS: Anion Gap 6 mmol/L; Carbon Dioxide 27 mmol/L (22-30); Chloride 102 mmol/L (98-107); Glucose 279 mg/dL (74-99); Non-African American GFR(MDRD) >60 (>60 ml/min/1.73 sqM); Potassium 4.1 mmol/L (3.5-5.1); Sodium 135 mmol/L (137-145)
[2017-04-25 07:36] LABS: Glucose,Whole Blood 262 mg/dL (75-99)
[2017-04-25 07:57] LABS: Blood Urea Nitrogen 14 mg/dL (7-17)
[2017-04-25] MEDS: traMADol 50 MG TAB PO PRN (07:57)
[2017-04-25] MEDS: INSULIN ASPART 100 UNIT/ML 1 ML 10 ML VIAL SQ SCH ×6 (07:58→18:07)
[2017-04-25] MEDS: PANTOPRAZOLE 40 MG TABLET PO SCH (07:59)
[2017-04-25] MEDS: BUDESONIDE 1 MG/2 ML NEBU INHALATION SCH ×2 (08:12→20:45)
[2017-04-25] MEDS: amLODIPine 10 MG TAB PO SCH (08:33)
[2017-04-25] MEDS: AZITHROMYCIN 500 MG TAB PO SCH (08:33)
[2017-04-25] MEDS: cefTRIAXone IN SWFI 1,000 MG/10 ML SYRINGE IVP SCH (08:33)
[2017-04-25] MEDS: HYDROCHLOROTHIAZIDE 25 MG TAB PO SCH (08:33)
[2017-04-25] MEDS: HEPARIN SODIUM,PORCINE 5,000 UNIT/ML 1 ML VIAL SQ SCH ×2 (08:40→19:56)
--- NOTE | 2017-04-25 11:51 | P.PN ---
Subjective Progress Note Date: 04/25/17 Principal diagnosis: Bilateral, multifocal pneumonia. This is a very pleasant 36-year-old female patient who follows with Dr. Amol Rothman as her primary care physician. She has a history of hypertension, hyperlipidemia, anxiety/depression, chronic and ongoing tobacco dependence at greater than 1 pack per day for 20 years, marijuana use. She's not been seen by a management aide in the past. The patient presented to the emergency room on 04/20/2017 with complaints of increasing shortness of breath cough and fever, fatigue and weakness. Her chest x-ray revealed mild patchy infrahilar densities seen bilaterally suspicious for developing pneumonia. There is additional peribronchial cuffing for suspicious for underlying bronchitis. Influenza screen was negative. She was treated for acute bronchitis and discharged home on an albuterol inhaler, Levaquin 7 or 50 mg and prednisone 15 mg daily for 5 days. She will be presented here yesterday 04/22/2017 with worsening shortness of breath cough and congestion. She developed pain in her lower ribs from coughing. She did have some episodes of nausea and vomiting. She is seen today in consultation on the regular medical floor. She is awake and alert. She is in some mild respiratory distress. She is diaphoretic. Chest x-ray reveals nodular densities within the lungs. Interstitium is increased. Difficult to exclude mediastinal adenopathy. There is interstitial edema. No leukocytosis. She has been afebrile. Slightly diaphoretic. Slightly tachycardic. Maintaining O2 saturations in the low 90s on 2 L/m per nasal cannula. Hemodynamically stable. She's been initiated on ceftriaxone and azithromycin along with IV Solu-Medrol and bronchodilators. On 04/24/2017 patient seen in follow-up on medical surgical floor. She still complains of chest tightness, diaphoresis, shortness of breath, weakness and chest congestion. She is not able to expectorate any sputum. She appears flushed, fatigued, but in no acute distress. She remains slightly tachycardic with heart rate in the 110's, on 3 L per nasal cannula with O2 sat 92%. Her T- max since admission has been 99F on 04/23/2017 at 2224. Blood and urine culture showed no growth. Patient continues on Zithromax, Rocephin, IV Solu- Medrol. CT chest from 04/23/2017 has been reviewed by Dr. Gomez and shows new bilateral upper and lower lobe and interstitial and alveolar pulmonary infiltrates, a new mildly enlarged single peritracheal lymph node noted compared to the old exam on 08/09/2014. On 04/25/2017, patient is feeling a bit better, less cough and less wheezing less shortness of breath. No fever no chills overnight, CBC and basic metabolic profile is relatively normal. Patient is already ambulating in the hallway without any difficulty. Today I talked the patient about possible bronchoscopy if she does not show significant improvement in the next couple of days. However at this point no need for bronchoscopy since the patient is clinically responding to treatment. Objective - Vital Signs Vital signs: Vital Signs Temp 98.2 F 04/25/17 07:00 Pulse 104 H 04/25/17 11:46 Resp 22 04/25/17 09:48 BP 120/70 04/25/17 07:00 Pulse Ox 92 L 04/25/17 09:48 Intake & Output 04/24/17 04/25/17 04/25/17 18:59 06:59 18:59 Intake Total 1240 400 Balance 1240 400 Weight 111.13 kg Intake: Intake, IV Titration 160 Amount Sodium Chloride 0.9% 1, 160 000 ml @ 20 mls/hr IV . Q24H [facility] Rx#:[id number] Oral 1080 400 Other: Voiding Method Toilet Toilet Toilet # Voids 3 1 - Exam GENERAL EXAM: Alert, fairly comfortable in no apparent distress. HEAD: Normocephalic. EYES: Normal reaction of pupils, equal size. NOSE: Clear with pink turbinates. THROAT: No erythema or exudates. NECK: No masses, no JVD. CHEST: No chest wall deformity. LUNGS: Equal air entry with few scattered rhonchi, end expiratory wheeze. Noted to be less today on 04/25/2017. CVS: S1 and S2 normal with no audible murmur, regular rhythm. ABDOMEN: No hepatosplenomegaly, normal bowel sounds, no guarding or rigidity. SPINE: No scoliosis or deformity SKIN: No rashes CENTRAL NERVOUS SYSTEM: No focal deficits, tone is normal in all 4 extremities. EXTREMITIES: There is no peripheral edema. No clubbing, no cyanosis. Peripheral pulses are intact. - Labs CBC & Chem 7: 04/25/17 06:45 04/25/17 06:45 Labs: Abnormal Lab Results - Last 24 Hours (Table) 04/24/17 04/24/17 04/24/17 Range/Units 07:22 17:23 20:13 Lymphocytes # (1.0-4.8) k/uL Sodium (137-145) mmol/L Glucose (74-99) mg/dL POC Glucose (mg/dL) 230 H 266 H (75-99) mg/dL Hemoglobin A1c 7.3 H (4.0-6.0) % 04/25/17 04/25/17 04/25/17 Range/Units 06:45 06:45 07:15 Lymphocytes # 0.8 L (1.0-4.8) k/uL Sodium 135 L (137-145) mmol/L Glucose 279 H (74-99) mg/dL POC Glucose (mg/dL) 262 H (75-99) mg/dL Hemoglobin A1c (4.0-6.0) % Microbiology - Last 24 Hours (Table) 04/22/17 16:24 Blood Culture - Preliminary Blood No Growth after 48 hours 04/24/17 11:52 Sputum Culture - Final Sputum Assessment and Plan Plan: #1. Acute bilateral upper and lower interstitial and alveolar infiltrates, with a small pretracheal lymph node, likely due to bacterial pneumonia, community-acquired with reactive lymphadenopathy. Sarcoidosis is unlikely, based on on the single small lymph node. We'll obtain angiotensin I converting enzyme level. Continue treating with empiric antibiotics, patient may have to have bronchoscopy with bronchoalveolar lavage if there is lack of improvement. #1 Acute exacerbation of chronic obstructive pulmonary disease failed outpatient treatment. #2 Acute hypoxic respiratory failure secondary to above. #3 Chronic and ongoing tobacco dependence. #4 Marijuana use. #5 Hyperlipidemia. #6 Hypertension. #7 Anxiety/depression. Plan continue present course of antibiotics bronchodilators steroids, repeat chest x-ray on Thursday, and based on the findings on the chest x-ray and based on the clinical status, consider either discharge planning or plans for bronchoscopy and lavage. Time with Patient: Less than 30
[2017-04-25 11:57] LABS: Glucose,Whole Blood 297 mg/dL (75-99)
[2017-04-25] MEDS: HYDROmorphone 1 MG/ML 1 ML SYRINGE IVP PRN ×2 (14:21→20:05)
[2017-04-25 17:32] LABS: Glucose,Whole Blood 309 mg/dL (75-99)
[2017-04-25] MEDS: INSULIN REGULAR 100 UNIT in SODIUM CHLORIDE 0.9% 100 ML IV SCH (19:30)
[2017-04-25 19:32] LABS: Glucose,Whole Blood 280 mg/dL (75-99)
--- NOTE | 2017-04-25 20:08 | PN ---
PROGRESS NOTE DATE OF SERVICE: 04/25/2017 This 36-year-old woman was admitted with multiple medical issues and COPD acute exacerbation. Patient also acute respiratory failure, bilateral pneumonia also. The patient is on IV steroids. Blood sugar is elevated. Hemoglobin A1c is 7.8 at this time. Patient apparently had diabetes mellitus, which is undetected at this time. The patient is being closely monitored. Dr. Gomez is following the patient closely. IV insulin drip for steroids has been recommended after my discussion with staff at this time. PAST MEDICAL HISTORY: Reviewed. REVIEW OF SYSTEMS: CARDIOVASCULAR: No angina or palpitations. Respiratory: As mentioned earlier. GI: No nausea or vomiting. : No dysuria. Central nervous system: No numbness or weakness. CURRENT MEDICATIONS ARE: 1. Tylenol 320 q.4 p.r.n. 2. DuoNeb q.i.d. and p.r.n. 3. Norvasc 10 mg daily. 5. Pulmicort 1 mg b.i.d. 6. Rocephin 1 g IV daily. 7. Flexeril 10 mg b.i.d. 8. Heparin 5000 b.i.d. 9. HydroDIURIL 25 mg daily. 10.Dilaudid. 11.Levemir 20 units subcu q.h.s. 12.Solu-Medrol 60 IV q.6 hours. 13.Protonix. 14.Restoril. PHYSICAL EXAMINATION: Patient is alert, oriented times three, pulse 100, blood pressure 142/84, respiration 18, temperature is 97.8, pulse ox 97% on 2 L. HEENT: Conjunctivae normal. NECK: No jugular venous distention. Cardiac: S1, S2. Respiration: Breath sounds diminished in the bases. Bilateral scattered rhonchi and crackles. Expiratory wheezing also present. Abdomen is soft, nontender. No mass palpable. Legs: No edema and no swelling. NERVOUS SYSTEM: Higher functions as mentioned earlier. Moves all four limbs. No focal motor or sensory deficits. Lymphatics: No lymph nodes palpable in the neck, axillae or groin. SKIN: No ulcers, rashes or bleeding. LAB STUDIES: CBC within normal. Accu-Cheks 279, 262, 287. ASSESSMENT: 1. Chronic obstructive pulmonary disease acute exacerbation with bibasilar pneumonia possibly bronchopneumonia gram-negative with acute hypoxic respiratory failure secondary to pneumonia. 2. Elevated blood sugars and uncontrolled diabetes type 2. Secondary to steroids. 3. History of nicotine dependence. 4. Hyperlipidemia. 5. Hypertension. 6. History of anxiety and depression. RECOMMENDATIONS AND DISCUSSION: In this 31-year-old woman who presented with multiple complex medical issues, we will monitor the patient closely. Continue the current medications. Continue symptomatic treatment. Continue with IV steroids. We will initiate insulin drip and continue antibiotics. Bronchodilators. Closely follow with Dr. Gomez. Continue the rest of the medications. Guarded prognosis because of multiple complex medical issues. Further recommendations to follow. MMODL / IJN: [id number] / LISA
[2017-04-25 20:23] LABS: Glucose,Whole Blood 255 mg/dL (75-99)
[2017-04-25 20:39] LABS: Glucose,Whole Blood 149 mg/dL (75-99)
[2017-04-25] MEDS ORDERED: INSULIN DETEMIR 100 UNIT/ML 10 ML VIAL SQ SCH (21:00)
[2017-04-25 22:37] LABS: Glucose,Whole Blood 194 mg/dL (75-99)
[2017-04-26] MEDS: methylPREDNISolone SOD SUCCI 125 MG/2 ML VIAL IV SCH ×2 (00:28→06:21)
[2017-04-26 00:58] LABS: Glucose,Whole Blood 231 mg/dL (75-99)
[2017-04-26 02:27] LABS: Glucose,Whole Blood 201 mg/dL (75-99)
[2017-04-26] MEDS: IPRATROPIUM-ALBUTEROL 3 ML NEB INHALATION SCH ×5 (03:25→19:28)
[2017-04-26 04:55] LABS: Glucose,Whole Blood 177 mg/dL (75-99)
[2017-04-26 06:33] LABS: Glucose,Whole Blood 159 mg/dL (75-99)
[2017-04-26 07:09] LABS: Basophils % (A) 0 %; CH 29.5; CHCM 33.1; Eosinophils % (A) 0 %; HCT 37.9 % (34.0-46.0); HDW 2.59; HGB 12.1 gm/dL (11.4-16.0); Luc # (Auto) 0.14; Luc % (Auto) 2; Lymphocytes % (A) 11 %; MCH 28.5 pg (25.0-35.0); MCHC 31.9 g/dL (31.0-37.0); MCV 89.3 fL (80.0-100.0); Mean Platelet Volume 6.9; Monocytes # (A) 0.6 k/uL (0-1.0); Monocytes % (A) 7 %; Neutrophils # (A) 7.5 k/uL (1.3-7.7); Neutrophils % (A) 81 %; RBC 4.25 m/uL (3.80-5.40); RDW 12.9 % (11.5-15.5); WBC 9.3 k/uL (3.8-10.6); WBC (Perox) 9.91
[2017-04-26 07:24] LABS: Anion Gap 6 mmol/L; Blood Urea Nitrogen 15 mg/dL (7-17); Calcium 9.1 mg/dL (8.4-10.2); Carbon Dioxide 31 mmol/L (22-30); Chloride 101 mmol/L (98-107); Glucose 156 mg/dL (74-99); Non-African American GFR(MDRD) >60 (>60 ml/min/1.73 sqM); Potassium 3.8 mmol/L (3.5-5.1); Sodium 138 mmol/L (137-145)
[2017-04-26] MEDS: BUDESONIDE 1 MG/2 ML NEBU INHALATION SCH ×2 (07:33→19:28)
[2017-04-26] MEDS: PANTOPRAZOLE 40 MG TABLET PO SCH (07:56)
[2017-04-26] MEDS: INSULIN ASPART 100 UNIT/ML 1 ML 10 ML VIAL SQ SCH ×3 (07:56→17:45)
[2017-04-26 07:58] LABS: Glucose,Whole Blood 161 mg/dL (75-99)
[2017-04-26] MEDS: cefTRIAXone IN SWFI 1,000 MG/10 ML SYRINGE IVP SCH (07:58)
[2017-04-26] MEDS: HYDROCHLOROTHIAZIDE 25 MG TAB PO SCH (07:59)
[2017-04-26] MEDS: amLODIPine 10 MG TAB PO SCH (07:59)
[2017-04-26] MEDS: AZITHROMYCIN 500 MG TAB PO SCH (07:59)
[2017-04-26] MEDS: traMADol 50 MG TAB PO PRN ×2 (08:21→15:17)
[2017-04-26] MEDS: HEPARIN SODIUM,PORCINE 5,000 UNIT/ML 1 ML VIAL SQ SCH ×2 (09:23→19:59)
[2017-04-26 10:25] LABS: Glucose,Whole Blood 316 mg/dL (75-99)
[2017-04-26 11:49] LABS: Glucose,Whole Blood 208 mg/dL (75-99)
[2017-04-26] MEDS: metFORMIN 500 MG TAB PO SCH ×2 (12:04→17:45)
[2017-04-26] MEDS: INSULIN REGULAR 100 UNIT in SODIUM CHLORIDE 0.9% 100 ML IV SCH (12:05)
--- NOTE | 2017-04-26 12:07 | P.PN ---
Subjective Progress Note Date: 04/26/17 Principal diagnosis: Bilateral, multifocal pneumonia. This is a very pleasant 36-year-old female patient who follows with Dr. Amol Rothman as her primary care physician. She has a history of hypertension, hyperlipidemia, anxiety/depression, chronic and ongoing tobacco dependence at greater than 1 pack per day for 20 years, marijuana use. She's not been seen by a retail and promotions coordinator in the past. The patient presented to the emergency room on 04/20/2017 with complaints of increasing shortness of breath cough and fever, fatigue and weakness. Her chest x-ray revealed mild patchy infrahilar densities seen bilaterally suspicious for developing pneumonia. There is additional peribronchial cuffing for suspicious for underlying bronchitis. Influenza screen was negative. She was treated for acute bronchitis and discharged home on an albuterol inhaler, Levaquin 7 or 50 mg and prednisone 15 mg daily for 5 days. She will be presented here yesterday 04/22/2017 with worsening shortness of breath cough and congestion. She developed pain in her lower ribs from coughing. She did have some episodes of nausea and vomiting. She is seen today in consultation on the regular medical floor. She is awake and alert. She is in some mild respiratory distress. She is diaphoretic. Chest x-ray reveals nodular densities within the lungs. Interstitium is increased. Difficult to exclude mediastinal adenopathy. There is interstitial edema. No leukocytosis. She has been afebrile. Slightly diaphoretic. Slightly tachycardic. Maintaining O2 saturations in the low 90s on 2 L/m per nasal cannula. Hemodynamically stable. She's been initiated on ceftriaxone and azithromycin along with IV Solu-Medrol and bronchodilators. On 04/24/2017 patient seen in follow-up on medical surgical floor. She still complains of chest tightness, diaphoresis, shortness of breath, weakness and chest congestion. She is not able to expectorate any sputum. She appears flushed, fatigued, but in no acute distress. She remains slightly tachycardic with heart rate in the 110's, on 3 L per nasal cannula with O2 sat 92%. Her T- max since admission has been 99F on 04/23/2017 at 2224. Blood and urine culture showed no growth. Patient continues on Zithromax, Rocephin, IV Solu- Medrol. CT chest from 04/23/2017 has been reviewed by Dr. Gomez and shows new bilateral upper and lower lobe and interstitial and alveolar pulmonary infiltrates, a new mildly enlarged single peritracheal lymph node noted compared to the old exam on 08/09/2014. On 04/25/2017, patient is feeling a bit better, less cough and less wheezing less shortness of breath. No fever no chills overnight, CBC and basic metabolic profile is relatively normal. Patient is already ambulating in the hallway without any difficulty. Today I talked the patient about possible bronchoscopy if she does not show significant improvement in the next couple of days. However at this point no need for bronchoscopy since the patient is clinically responding to treatment. Reevaluated today on 04/26/2017, steady improvement in her clinical status is noted. Patient is feeling much better, less cough and less wheezing less shortness of breath, no fever, no chills, no hemoptysis, no chest pain. Objective - Vital Signs Vital signs: Vital Signs Temp 97.6 F 04/26/17 07:00 Pulse 96 04/26/17 11:30 Resp 19 04/26/17 08:01 BP 138/93 04/26/17 07:00 Pulse Ox 95 04/26/17 07:35 Intake & Output 04/25/17 04/26/17 04/26/17 18:59 06:59 18:59 Intake Total 1146.433 20.358 Balance 1146.433 20.358 Intake: Intake, IV Titration 56.433 20.358 Amount Insulin Regular 100 unit 56.433 20.358 In Sodium Chloride 0.9% 100 ml @ Titrate IV .Q0M [facility] Rx#:[id number] Oral 1090 Other: Voiding Method Toilet Toilet Toilet # Voids 2 1 - Exam GENERAL EXAM: Alert, fairly comfortable in no apparent distress. HEAD: Normocephalic. EYES: Normal reaction of pupils, equal size. NOSE: Clear with pink turbinates. THROAT: No erythema or exudates. NECK: No masses, no JVD. CHEST: No chest wall deformity. LUNGS: Equal air entry minimal wheezing on forced expiratory maneuver noted, breath sounds are much improved today compared to the last few days. CVS: S1 and S2 normal with no audible murmur, regular rhythm. ABDOMEN: No hepatosplenomegaly, normal bowel sounds, no guarding or rigidity. SPINE: No scoliosis or deformity SKIN: No rashes CENTRAL NERVOUS SYSTEM: No focal deficits, tone is normal in all 4 extremities. EXTREMITIES: There is no peripheral edema. No clubbing, no cyanosis. Peripheral pulses are intact. - Labs CBC & Chem 7: 04/26/17 06:53 04/26/17 06:53 Labs: Abnormal Lab Results - Last 24 Hours (Table) 04/25/17 04/25/17 04/25/17 Range/Units 17:23 19:29 19:54 Carbon Dioxide (22-30) mmol/L Glucose (74-99) mg/dL POC Glucose (mg/dL) 309 H 280 H 255 H (75-99) mg/dL 04/25/17 04/25/17 04/26/17 Range/Units 20:27 22:36 00:45 Carbon Dioxide (22-30) mmol/L Glucose (74-99) mg/dL POC Glucose (mg/dL) 149 H 194 H 231 H (75-99) mg/dL 04/26/17 04/26/17 04/26/17 Range/Units 02:25 04:43 06:32 Carbon Dioxide (22-30) mmol/L Glucose (74-99) mg/dL POC Glucose (mg/dL) 201 H 177 H 159 H (75-99) mg/dL 04/26/17 04/26/17 04/26/17 Range/Units 06:53 07:56 10:19 Carbon Dioxide 31 H (22-30) mmol/L Glucose 156 H (74-99) mg/dL POC Glucose (mg/dL) 161 H 316 H (75-99) mg/dL 04/26/17 Range/Units 11:45 Carbon Dioxide (22-30) mmol/L Glucose (74-99) mg/dL POC Glucose (mg/dL) 208 H (75-99) mg/dL Microbiology - Last 24 Hours (Table) 04/24/17 22:30 Gram Stain - Preliminary Sputum 04/22/17 16:24 Blood Culture - Preliminary Blood No Growth after 72 hours Assessment and Plan Plan: #1. Acute bilateral upper and lower interstitial and alveolar infiltrates, with a small pretracheal lymph node, likely due to bacterial pneumonia, community-acquired with reactive lymphadenopathy. Sarcoidosis is unlikely, based on on the single small lymph node. We'll obtain angiotensin I converting enzyme level. Continue treating with empiric antibiotics, patient may have to have bronchoscopy with bronchoalveolar lavage if there is lack of improvement. #1 Acute exacerbation of chronic obstructive pulmonary disease failed outpatient treatment. #2 Acute hypoxic respiratory failure secondary to above. #3 Chronic and ongoing tobacco dependence. #4 Marijuana use. #5 Hyperlipidemia. #6 Hypertension. #7 Anxiety/depression. Plan continue present course of antibiotics bronchodilators steroids, repeat chest x-ray tomorrow, based on that decision will be made whether to discharge the patient home or arrange for bronchoscopy and BAL. Time with Patient: Less than 30
[2017-04-26 14:08] LABS: Glucose,Whole Blood 137 mg/dL (75-99)
[2017-04-26 16:37] LABS: Glucose,Whole Blood 149 mg/dL (75-99)
[2017-04-26] MEDS: methylPREDNISolone SOD SUCCI 40 MG/ML 1 ML VIAL IV SCH (16:58)
[2017-04-26 17:57] LABS: Glucose,Whole Blood 170 mg/dL (75-99)
--- NOTE | 2017-04-26 18:24 | PN ---
PROGRESS NOTE DATE OF SERVICE: 04/26/2017 INTERVAL HISTORY: This is a 36-year-old woman who was admitted with COPD acute exacerbation, bibasilar pneumonia is being closely monitored. Patient is feeling slightly better. No chest pain. No palpitations. Dr. Gomez is planning a chest x-ray in the morning and consider whether the patient is a candidate for bronchoscopy or not. No chest pain. No palpitations. No fever. EXAM: Alert and oriented x3. The pulse is 96, blood pressure is 138/93, respiration 19, temperature 97.6, pulse ox 94% on 2 L. HEENT is conjunctivae normal. Neck: No jugular venous distention. Cardiovascular: S1, S2 muffled. Respiratory: Breath sounds diminished in the bases. A few scattered rhonchi and crackles. Abdomen is soft, nontender. Legs are no edema, no swelling. Nervous system: No focal deficits. LABS: At this time Accu-Cheks 137, 149. CBC noted. ASSESSMENT: 1. Chronic obstructive pulmonary disease exacerbation with bibasilar pneumonia possibly bronchopneumonia gram-negative with acute hypoxic respiratory failure secondary to pneumonia. 2. Elevated blood sugars, with uncontrolled diabetes mellitus type 2, possibly exacerbated by steroids with baseline diabetes mellitus type 2. 3. History of nicotine dependence. 4. Hyperlipidemia. 5. Hypertension. 6. History of anxiety, depression. RECOMMENDATIONS AND DISCUSSION: Recommend to continue current management and treatment. Adjust the insulin drip at this time. Otherwise, add metformin to the regimen. Continue the bronchodilators, antibiotics. Guarded prognosis because of multiple complex medical issues. Further recommendations to follow. MMODL / IJN: [id number] /
[2017-04-26 20:07] LABS: Glucose,Whole Blood 159 mg/dL (75-99)
[2017-04-26 22:24] LABS: Glucose,Whole Blood 174 mg/dL (75-99)
[2017-04-27] MEDS: methylPREDNISolone SOD SUCCI 40 MG/ML 1 ML VIAL IV SCH ×3 (00:11→15:53)
[2017-04-27] MEDS: IPRATROPIUM-ALBUTEROL 3 ML NEB INHALATION SCH ×5 (00:20→15:26)
[2017-04-27 00:26] LABS: Glucose,Whole Blood 129 mg/dL (75-99)
[2017-04-27 01:53] LABS: Glucose,Whole Blood 196 mg/dL (75-99)
[2017-04-27 04:19] LABS: Glucose,Whole Blood 203 mg/dL (75-99)
[2017-04-27 06:09] LABS: Glucose,Whole Blood 188 mg/dL (75-99)
[2017-04-27 07:41] LABS: Basophils % (A) 0 %; CH 29.5; CHCM 32.8; Eosinophils % (A) 0 %; HCT 43.4 % (34.0-46.0); HDW 2.53; HGB 13.8 gm/dL (11.4-16.0); Luc # (Auto) 0.23; Luc % (Auto) 1; Lymphocytes # (A) 1.2 k/uL (1.0-4.8); Lymphocytes % (A) 8 %; MCH 28.7 pg (25.0-35.0); MCHC 31.8 g/dL (31.0-37.0); MCV 90.1 fL (80.0-100.0); Mean Platelet Volume 6.7; Monocytes # (A) 1.1 k/uL (0-1.0); Monocytes % (A) 7 %; Neutrophils # (A) 13.5 k/uL (1.3-7.7); Neutrophils % (A) 84 %; RBC 4.82 m/uL (3.80-5.40); WBC (Perox) 16.16
[2017-04-27 07:44] LABS: Anion Gap 11 mmol/L; Blood Urea Nitrogen 20 mg/dL (7-17); Calcium 9.6 mg/dL (8.4-10.2); Carbon Dioxide 30 mmol/L (22-30); Chloride 98 mmol/L (98-107); Glucose 182 mg/dL (74-99); Non-African American GFR(MDRD) >60 (>60 ml/min/1.73 sqM); Sodium 139 mmol/L (137-145)
[2017-04-27 08:14] LABS: Glucose,Whole Blood 209 mg/dL (75-99)
[2017-04-27] MEDS: PANTOPRAZOLE 40 MG TABLET PO SCH (08:53)
[2017-04-27] MEDS: AZITHROMYCIN 500 MG TAB PO SCH (08:53)
[2017-04-27] MEDS: metFORMIN 500 MG TAB PO SCH ×2 (08:53→17:41)
[2017-04-27] MEDS: INSULIN ASPART 100 UNIT/ML 1 ML 10 ML VIAL SQ SCH ×3 (08:53→17:43)
[2017-04-27] MEDS: traMADol 50 MG TAB PO PRN (08:54)
[2017-04-27] MEDS: amLODIPine 10 MG TAB PO SCH (08:57)
[2017-04-27] MEDS: HEPARIN SODIUM,PORCINE 5,000 UNIT/ML 1 ML VIAL SQ SCH (08:57)
[2017-04-27] MEDS: HYDROCHLOROTHIAZIDE 25 MG TAB PO SCH (08:57)
--- NOTE | 2017-04-27 09:19 | XR ---
EXAMINATION TYPE: XR chest 2V DATE OF EXAM: 04/27/2017 COMPARISON: 04/24/2017 TECHNIQUE: PA and lateral views submitted. HISTORY: Cough and congestion FINDINGS: The lungs are clear and there is no pneumothorax, pleural effusion, or focal pneumonia. Hypertrophi c change of the spine. IMPRESSION: 1. No acute process.
[2017-04-27] MEDS: BUDESONIDE 1 MG/2 ML NEBU INHALATION SCH (09:20)
[2017-04-27 10:06] LABS: Glucose,Whole Blood 252 mg/dL (75-99)
[2017-04-27 11:31] VITALS: BMI 38.3
[2017-04-27 11:56] LABS: Glucose,Whole Blood 110 mg/dL (75-99)
--- NOTE | 2017-04-27 12:30 | P.PN ---
Subjective Progress Note Date: 04/27/17 Principal diagnosis: pneumonia and COPD exacerbation Progress note dated 04/27/2017 36-year-old female who is good be discharged today. She has a history of COPD exacerbation hypoxemic respiratory failure chronic and ongoing tobacco dependence hyperlipidemia hypertension and possible pneumonia. The patient's chest x-ray today did not show any acute infiltrates. She's feeling well. We' ll be discharged home today by the primary service. Should follow-up with my partner in the office. The patient denies any shortness of breath tightness coughing wheezing or phlegm production. Is feeling much better and is hopeful to go home today. Objective - Vital Signs Vital signs: Vital Signs Temp 98.5 F 04/27/17 07:00 Pulse 102 H 04/27/17 09:33 Resp 16 04/27/17 07:00 BP 134/77 04/27/17 07:00 Pulse Ox 94 L 04/27/17 10:33 Intake & Output 04/26/17 04/27/17 04/27/17 18:59 06:59 18:59 Intake Total 143.883 35.350 28.933 Balance 143.883 35.350 28.933 Weight 111.13 kg 111.13 kg Intake: IV 92 Insulin Regular 100 unit 92 In Sodium Chloride 0.9% 100 ml @ Titrate IV .Q0M [facility] Rx#:[id number] Intake, IV Titration 51.883 35.350 28.933 Amount Insulin Regular 100 unit 51.883 35.350 28.933 In Sodium Chloride 0.9% 100 ml @ Titrate IV .Q0M [facility] Rx#:[id number] Other: Voiding Method Toilet Toilet Toilet # Voids 3 2 - Exam No acute distress, oriented 3. Not requiring any supplemental oxygen. Sitting up in bed. HEENT examination is grossly unremarkable. Mucous membranes moist. No oral lesions. Neck supple. Full range of motion. No adenopathy or thyromegaly. Cardiovascular examination reveals regular rhythm rate. S1-S2 normal. No S3- S4 or murmur. Lungs reveal few scattered rhonchi. No wheezes or crackles. Breath sounds are equal bilaterally. Abdomen soft bowel sounds are heard. Extremities are intact. No cyanosis clubbing or edema. Skin without rash. Neurologic examination is nonfocal. - Labs CBC & Chem 7: 04/27/17 07:22 04/27/17 07:22 Labs: Abnormal Lab Results - Last 24 Hours (Table) 04/26/17 04/26/17 04/26/17 Range/Units 14:05 16:34 17:46 WBC (3.8-10.6) k/uL Plt Count (150-450) k/uL Neutrophils # (1.3-7.7) k/uL Monocytes # (0-1.0) k/uL BUN (7-17) mg/dL Glucose (74-99) mg/dL POC Glucose (mg/dL) 137 H 149 H 170 H (75-99) mg/dL 04/26/17 04/26/17 04/27/17 Range/Units 20:04 22:22 00:24 WBC (3.8-10.6) k/uL Plt Count (150-450) k/uL Neutrophils # (1.3-7.7) k/uL Monocytes # (0-1.0) k/uL BUN (7-17) mg/dL Glucose (74-99) mg/dL POC Glucose (mg/dL) 159 H 174 H 129 H (75-99) mg/dL 04/27/17 04/27/17 04/27/17 Range/Units 01:52 04:18 06:08 WBC (3.8-10.6) k/uL Plt Count (150-450) k/uL Neutrophils # (1.3-7.7) k/uL Monocytes # (0-1.0) k/uL BUN (7-17) mg/dL Glucose (74-99) mg/dL POC Glucose (mg/dL) 196 H 203 H 188 H (75-99) mg/dL 04/27/17 04/27/17 04/27/17 Range/Units 07:22 07:22 08:12 WBC 16.0 H (3.8-10.6) k/uL Plt Count 575 H (150-450) k/uL Neutrophils # 13.5 H (1.3-7.7) k/uL Monocytes # 1.1 H (0-1.0) k/uL BUN 20 H (7-17) mg/dL Glucose 182 H (74-99) mg/dL POC Glucose (mg/dL) 209 H (75-99) mg/dL 04/27/17 04/27/17 Range/Units 10:03 11:55 WBC (3.8-10.6) k/uL Plt Count (150-450) k/uL Neutrophils # (1.3-7.7) k/uL Monocytes # (0-1.0) k/uL BUN (7-17) mg/dL Glucose (74-99) mg/dL POC Glucose (mg/dL) 252 H 110 H (75-99) mg/dL Microbiology - Last 24 Hours (Table) 04/22/17 16:24 Blood Culture - Preliminary Blood No Growth after 96 hours Assessment and Plan (1) Hypertension Current Visit: Yes Status: Acute Code(s): I10 - ESSENTIAL (PRIMARY) HYPERTENSION SNOMED Code(s): 48054862 (2) Hyperlipidemia Current Visit: Yes Status: Acute Code(s): E78.5 - HYPERLIPIDEMIA, UNSPECIFIED SNOMED Code(s): 79444803 (3) CAP (community acquired pneumonia) Current Visit: Yes Status: Acute Code(s): J18.9 - PNEUMONIA, UNSPECIFIED ORGANISM SNOMED Code(s): 754695604 (4) COPD (chronic obstructive pulmonary disease) Current Visit: Yes Status: Acute Code(s): J44.9 - CHRONIC OBSTRUCTIVE PULMONARY DISEASE, UNSPECIFIED SNOMED Code(s): 21008060 (5) Diabetes Current Visit: Yes Status: Acute Code(s): E11.9 - TYPE 2 DIABETES MELLITUS WITHOUT COMPLICATIONS SNOMED Code(s): 58500783 (6) Acute bronchitis Current Visit: No Status: Acute Code(s): J20.9 - ACUTE BRONCHITIS, UNSPECIFIED SNOMED Code(s): 44314565 (7) Anxiety Current Visit: No Status: Acute Code(s): F41.9 - ANXIETY DISORDER, UNSPECIFIED SNOMED Code(s): 62824973 (8) Pneumonia Current Visit: No Status: Acute Code(s): J18.9 - PNEUMONIA, UNSPECIFIED ORGANISM SNOMED Code(s): 225620426 Plan: Progress note dated 04/27/2017 The patient's doing well. From the pulmonary aspect perspective the patient can be discharged home. We'll let the primary hospitalist to make a final decision. She should follow-up my partner in the office. She'll benefit from a 6 minute walk distance and PFTs in the outpatient setting. Additional recommendations and suggestions are forthcoming. Today's chest x-ray was normal. Time with Patient: Less than 30
[2017-04-27 13:14] LABS: Glucose,Whole Blood 138 mg/dL (75-99)
[2017-04-27 14:24] LABS: Glucose,Whole Blood 282 mg/dL (75-99)
[2017-04-27 14:50] VITALS: BP 107/74; RESP 20; TEMP 99.6
[2017-04-27 15:29] VITALS: PULSE 100
[2017-04-27] MEDS ORDERED: INSULIN DETEMIR 100 UNIT/ML 10 ML VIAL SQ STA (15:52)
--- NOTE | 2017-04-27 16:02 | P.DS ---
Providers Date of admission: 04/22/17 18:07 Attending physician: Alcon Haley Consults: 04/22/17 18:11 Consult Physician Stat Consulting Provider: Sara Gomez Reason/Comments: CAP Do you want consulting provider notified?: Yes Primary care physician: [facility] Course: This 36-year-old woman with a past medical history multiple medical problems was admitted with COPD acute exacerbation and as well as pneumonia. Patient was treated with bronchodilators steroids and antibiotics. Patient improved significantly. Pulmonary saw the patient.. The patient will be discharged in a stable condition with guarded prognosis. Total time taken is 35 minutes. On exam vitals are stable. Cardio S1 and S2 normal. Abdomen soft nontender. Nervous system no focal deficit. Respirator system few rhonchi crackles. The patient also had evidence of diabetes mellitus as noted by elevated hemoglobin A1c. Patient was treated with IV insulin drip during the hospitalization because of the IV steroids. I recommended the patient to take 50 units of Lantus +14 units of NovoLog tid at this time. Patient is to maintain log for Accu-Cheks before meals and at bedtime and the present with to Dr. Albrecht for further evaluation and monitoring. Final diagnosis 1. COPD acute exacerbation with a bibasilar pneumonia possibly bronchopneumonia gram-negative with acute hypoxic respiratory failure secondary to pneumonia. 2. Elevated blood sugars uncontrolled diabetes mellitus type 2 new onset exacerbated by steroids. 3. History and nicotine dependence. 4. Hyperlipidemia. 5. Hypertension. 6. History of anxiety depression. Patient Condition at Discharge: Stable Plan - Discharge Summary Discharge Rx Participant: Yes New Discharge Prescriptions: New Acetaminophen Tab [Tylenol] 325 mg PO Q6H PRN tab PRN Reason: Fever And/ Or Pain Insulin Aspart [NovoLOG (formulary)] 14 unit SQ AC-TID #1 vial Insulin Glargine [Lantus] 50 unit SQ HS #1 vial metFORMIN HCL [Glucophage] 500 mg PO BID-W/MEALS #60 tab Cefuroxime Axetil [Ceftin] 500 mg PO BID #14 tab predniSONE 10 mg PO DIRECTED #30 tab Azithromycin [Zithromax] 500 mg PO DAILY #7 tab Ipratropium-Albuterol Nebulize [Duoneb 0.5 mg-3 mg/3 ml Soln] 3 ml INHALATION QID #120 ampul.neb Multivitamins, Thera [Multivitamin (formulary)] 1 tab PO DAILY #30 tablet Budesonide-Formot 160-4.5 Mcg [Symbicort 160-4.5 Mcg Inhaler] 2 puff INHALATION BID #1 inhaler Continue Omeprazole [PriLOSEC] 20 mg PO DAILY amLODIPine [Norvasc] 10 mg PO DAILY Hydrochlorothiazide [Hydrodiuril] 25 mg PO DAILY Albuterol Inhaler [Ventolin Hfa Inhaler] 1 - 2 puff INHALATION Q4-6H PRN #1 inhaler PRN Reason: Cough Albuterol Nebulized [Ventolin Nebulized] 2.5 mg INHALATION Q4H #20 nebu Discontinued Levofloxacin [Levaquin] 750 mg PO DAILY #7 tab predniSONE 50 mg PO DAILY #5 tab Discharge Medication List Omeprazole [PriLOSEC] 20 mg PO DAILY 08/06/14 [History] Albuterol Inhaler [Ventolin Hfa Inhaler] 1 - 2 puff INHALATION Q4-6H PRN #1 inhaler 04/20/17 [Rx] Albuterol Nebulized [Ventolin Nebulized] 2.5 mg INHALATION Q4H #20 nebu [Rx] Hydrochlorothiazide [Hydrodiuril] 25 mg PO DAILY 04/20/17 [History] amLODIPine [Norvasc] 10 mg PO DAILY 04/20/17 [History] Acetaminophen Tab [Tylenol] 325 mg PO Q6H PRN tab 04/27/17 [Rx] Azithromycin [Zithromax] 500 mg PO DAILY #7 tab 04/27/17 [Rx] Budesonide-Formot 160-4.5 Mcg [Symbicort 160-4.5 Mcg Inhaler] 2 puff INHALATION BID #1 inhaler 04/27/17 [Rx] Cefuroxime Axetil [Ceftin] 500 mg PO BID #14 tab 04/27/17 [Rx] Insulin Aspart [NovoLOG (formulary)] 14 unit SQ AC-TID #1 vial 04/27/17 [Rx] Insulin Glargine [Lantus] 50 unit SQ HS #1 vial 04/27/17 [Rx] Ipratropium-Albuterol Nebulize [Duoneb 0.5 mg-3 mg/3 ml Soln] 3 ml INHALATION QID #120 ampul.neb 04/27/17 [Rx] Multivitamins, Thera [Multivitamin (formulary)] 1 tab PO DAILY #30 tablet [Rx] metFORMIN HCL [Glucophage] 500 mg PO BID-W/MEALS #60 tab 04/27/17 [Rx] predniSONE 10 mg PO DIRECTED #30 tab 04/27/17 [Rx] Follow up Appointment(s)/Referral(s): Allyson Cameron MD [Primary Care Provider] - 05/01/17 10:45 am Patient Instructions/Handouts: Cefuroxime (By mouth), Prednisone (By mouth), Azithromycin (By mouth), Metformin (By mouth), Insulin Aspart Protamine/Insulin Aspart (By injection), Insulin Glargine (By injection), COPD (Chronic Obstructive Pulmonary Disease) (DC), Pneumonia (DC)
[2017-04-27 16:40] LABS: Glucose,Whole Blood 237 mg/dL (75-99)
== END 2017-04-27 18:38 | disposition home or self-care (01) | DRG 140 ==
LOC: EC 14:24 → 5MS5E 18:07
PROVIDERS: ADMIT Internal Medicine; ATTEND Internal Medicine
DX: J44.0 Chronic obstructive pulmonary disease with (acute) lower respiratory infection (principal); J96.21 Acute and chronic respiratory failure with hypoxia; J15.9 Unspecified bacterial pneumonia; J84.9 Interstitial pulmonary disease, unspecified; E11.65 Type 2 diabetes mellitus with hyperglycemia; I10 Essential (primary) hypertension; E78.5 Hyperlipidemia, unspecified; F12.90 Cannabis use, unspecified, uncomplicated; F17.200 Nicotine dependence, unspecified, uncomplicated; I25.10 Atherosclerotic heart disease of native coronary artery without angina pectoris; J44.1 Chronic obstructive pulmonary disease with (acute) exacerbation; K21.9 Gastro-esophageal reflux disease without esophagitis; T38.0X5A Adverse effect of glucocorticoids and synthetic analogues, initial encounter; Z79.899 Other long term (current) drug therapy; Z82.49 Family history of ischemic heart disease and other diseases of the circulatory system; Z79.4 Long term (current) use of insulin
CPT/HCPCS: 36415; 71020; 71260; 80048; 80053; 80061; 81001; 81025; 82164; 83036; 83605; 83880; 84484; 85025; 85610; 85730; 87040; 87070; 87077; 87086; 87186; 87205; 93005; 94640; 94760; 96361; 96365; 96375; 99285

== ENCOUNTER 2017-09-11 17:31 | Emergency (ER) | payer OTHER ==
[2017-09-11 17:44] VITALS: RESP 18
[2017-09-11] MEDS ORDERED: SODIUM CHLORIDE 0.9% 1,000 ML IV STA (18:00)
[2017-09-11] MEDS ORDERED: IPRATROPIUM-ALBUTEROL 3 ML NEB INHALATION STA (18:01)
[2017-09-11] MEDS ORDERED: KETOROLAC 30 MG/ML 1 ML VIAL IVP STA (18:01)
--- NOTE | 2017-09-11 18:04 | ED ---
General Adult HPI - General Chief complaint: Chest Pain Stated complaint: chest pain, poss uri, poss intestinal Time Seen by Provider: 09/11/17 17:46 Source: patient, RN notes reviewed, old records reviewed Mode of arrival: wheelchair Limitations: no limitations - History of Present Illness Initial comments: 47-year-old female presenting for evaluation of anterior chest pain. Patient describes pain as dull and achy. She does report she has had an upper respiratory tract infection and has been coughing over the past 5 days. She was started on an antibiotic and steroid by her primary care physician. She has history of reactive airway disease, and is a current smoker. She states she does have a cough at baseline. Her cough is nonproductive, no chills. Or rhinorrhea. She does also report some lower abdominal pain and diarrhea. Previous history of diverticulitis. No vomiting. Subjective fever and chills. - Related Data Home Medications Medication Instructions Recorded Confirmed Omeprazole [PriLOSEC] 20 mg PO DAILY PRN 08/06/14 09/11/17 Hydrochlorothiazide [Hydrodiuril] 25 mg PO DAILY 04/20/17 09/11/17 amLODIPine [Norvasc] 10 mg PO DAILY 04/20/17 09/11/17 Acetaminophen [Tylenol Extra 500 mg PO Q6HR PRN 09/11/17 09/11/17 Strength] Amoxicillin 500 mg PO TID 09/11/17 09/11/17 Betamethasone Dipropionate 1 applic TOPICAL DAILY PRN 09/11/17 09/11/17 [Diprolene AF 0.05% Cream] Codeine Phosphate/Guaifenesin 10 ml PO Q6HR PRN 09/11/17 09/11/17 [Cheratussin AC Syrup] Cyclobenzaprine [Flexeril] 10 mg PO HS PRN 09/11/17 09/11/17 Hydrocortisone Cream 1 applic TOPICAL BID PRN 09/11/17 09/11/17 [Hydrocortisone 2.5% Cream] Insulin Glargine,Hum.rec.anlog 5 - 10 unit SQ DAILY 09/11/17 09/11/17 [Basaglar Kwikpen U-100] Pravastatin Sodium [Pravachol] 20 mg PO HS 09/11/17 09/11/17 metFORMIN HCL 1,000 mg PO BID 09/11/17 09/11/17 predniSONE 20 mg PO DAILY 09/11/17 09/11/17 Allergies Allergy/AdvReac Type Severity Reaction Status Date / Time bupropion [From Wellbutrin] Allergy Unknown Verified 09/11/17 18:52 Review of Systems ROS Statement: Those systems with pertinent positive or pertinent negative responses have been documented in the HPI. ROS Other: All systems not noted in ROS Statement are negative. Past Medical History Past Medical History: Chest Pain / Angina, GERD/Reflux, Hyperlipidemia, Hypertension, Syncope Additional Past Medical History / Comment(s): Diverticulitis(bowel resection )m pssed stress test-"neg",2009 had 1 seizure and syncpoe-"thought to be d/t taking wellbutrin" has'nt had one since. History of Any Multi-Drug Resistant Organisms: None Reported Past Surgical History: Adenoidectomy, Bowel Resection, Tonsillectomy Additional Past Surgical History / Comment(s): cyst removal from left wrist, Past Anesthesia/Blood Transfusion Reactions: No Reported Reaction Past Psychological History: Anxiety, Depression Smoking Status: Current every day smoker Past Alcohol Use History: Occasional Past Drug Use History: Marijuana - Past Family History Father Family Medical History: Hypertension, Syncope Mother Additional Family Medical History / Comment(s): - due to brain aneurysm General Exam Limitations: no limitations General appearance: alert, in no apparent distress Head exam: Present: atraumatic, normocephalic Eye exam: Present: normal appearance, PERRL, EOMI ENT exam: Present: normal exam Neck exam: Present: normal inspection, full ROM. Absent: tenderness, meningismus Respiratory exam: Present: normal lung sounds bilaterally, chest wall tenderness (Left anterior chest tenderness, this corresponds to patient's pain complaint.), other (Bronchospastic cough). Absent: respiratory distress, wheezes Cardiovascular Exam: Present: regular rate, tachycardia GI/Abdominal exam: Present: soft, tenderness (Mild left lower quadrant tenderness to palpation.). Absent: distended Extremities exam: Present: normal inspection, normal capillary refill. Absent: pedal edema, calf tenderness Neurological exam: Present: alert, oriented X3, CN II-XII intact. Absent: motor sensory deficit Psychiatric exam: Present: normal affect, normal mood Skin exam: Present: warm, dry, intact. 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 Patient's chest pain is reproducible. She has bronchospastic cough on exam. She is currently on amoxicillin and steroids for her upper respiratory symptoms. Laboratory studies reveal normal CBC, normal electrolytes. Patient is influenza positive. This does explain many of her symptoms. Abdominal x- ray negative for obstruction or free air. Chest x-ray negative for focal pneumonia. Troponin is negative. D-dimer is elevated at 0.67. This is discussed with the patient as an abnormal test. Patient had abnormal d-dimer and July 2014 at 0.69, at that time patient underwent CT angiography that was negative for PE. Given the fact that the patient has influenza and her symptoms are likely related to this I had a long discussion with the patient regarding computed tomography scan of the chest for evaluation of PE. Patient declines wishing to avoid the radiation. She states she will return with development of dyspnea or worsening chest pain. I believe this is reasonable. Urinalysis negative for infection. Patient will continue her steroids, she will discontinue her amoxicillin, she will monitor diarrhea and return with any worsening or changing symptoms. She is advised to return with development of dyspnea or changing or worsening chest pain. - Lab Data Result diagrams: 09/11/17 18:00 09/11/17 18:00 Lab Results 09/11/17 09/11/17 09/11/17 Range/Units 18:00 18:00 18:00 WBC 4.6 (3.8-10.6) k/uL RBC 5.15 (3.80-5.40) m/uL Hgb 15.1 (11.4-16.0) gm/dL Hct 42.7 (34.0-46.0) % MCV 83.0 (80.0-100.0) fL MCH 29.3 (25.0-35.0) pg MCHC 35.3 (31.0-37.0) g/dL RDW 13.4 (11.5-15.5) % Plt Count 263 (150-450) k/uL Neutrophils % 83 % Lymphocytes % 11 % Monocytes % 5 % Eosinophils % 0 % Basophils % 0 % Neutrophils # 3.8 (1.3-7.7) k/uL Lymphocytes # 0.5 L (1.0-4.8) k/uL Monocytes # 0.2 (0-1.0) k/uL Eosinophils # 0.0 (0-0.7) k/uL Basophils # 0.0 (0-0.2) k/uL PT (9.0-12.0) sec INR (<1.2) APTT (22.0-30.0) sec D-Dimer (<0.60) mg/L FEU Sodium (137-145) mmol/L Potassium (3.5-5.1) mmol/L Chloride (98-107) mmol/L Carbon Dioxide (22-30) mmol/L Anion Gap mmol/L BUN (7-17) mg/dL Creatinine (0.52-1.04) mg/dL Est GFR (CKD-EPI)AfAm (>60 ml/min/1.73 sqM) Est GFR (CKD-EPI)NonAf (>60 ml/min/1.73 sqM) Glucose (74-99) mg/dL Plasma Lactic Acid Hermes (0.7-2.0) mmol/L Calcium (8.4-10.2) mg/dL Magnesium (1.6-2.3) mg/dL Total Bilirubin (0.2-1.3) mg/dL AST (14-36) U/L ALT (9-52) U/L Alkaline Phosphatase (38-126) U/L Total Creatine Kinase 54 (30-135) U/L CK-MB (CK-2) 0.3 (0.0-2.4) ng/mL CK-MB (CK-2) Rel Index 0.6 Troponin I <0.012 (0.000-0.034) ng/mL Total Protein (6.3-8.2) g/dL Albumin (3.5-5.0) g/dL Lipase (23-300) U/L Urine Color Urine Appearance (Clear) Urine pH (5.0-8.0) Ur Specific [place] (1.001-1.035) Urine Protein (Negative) Urine Glucose (UA) (Negative) Urine Ketones (Negative) Urine Blood (Negative) Urine Nitrite (Negative) Urine Bilirubin (Negative) Urine Urobilinogen (<2.0) mg/dL Ur Leukocyte Esterase (Negative) Urine HCG, Qual (Not Detectd) Influenza Type A RNA Detected H (Not Detectd) Influenza Type B (PCR) Not Detected (Not Detectd) 09/11/17 09/11/17 09/11/17 Range/Units 18:00 18:00 18:00 WBC (3.8-10.6) k/uL RBC (3.80-5.40) m/uL Hgb (11.4-16.0) gm/dL Hct (34.0-46.0) % MCV (80.0-100.0) fL MCH (25.0-35.0) pg MCHC (31.0-37.0) g/dL RDW (11.5-15.5) % Plt Count (150-450) k/uL Neutrophils % % Lymphocytes % % Monocytes % % Eosinophils % % Basophils % % Neutrophils # (1.3-7.7) k/uL Lymphocytes # (1.0-4.8) k/uL Monocytes # (0-1.0) k/uL Eosinophils # (0-0.7) k/uL Basophils # (0-0.2) k/uL PT 9.8 (9.0-12.0) sec INR 1.0 (<1.2) APTT 27.4 (22.0-30.0) sec D-Dimer 0.67 H (<0.60) mg/L FEU Sodium 140 (137-145) mmol/L Potassium 3.6 (3.5-5.1) mmol/L Chloride 101 (98-107) mmol/L Carbon Dioxide 22 (22-30) mmol/L Anion Gap 17 mmol/L BUN 10 (7-17) mg/dL Creatinine 0.50 L (0.52-1.04) mg/dL Est GFR (CKD-EPI)AfAm >90 (>60 ml/min/1.73 sqM) Est GFR (CKD-EPI)NonAf >90 (>60 ml/min/1.73 sqM) Glucose 158 H (74-99) mg/dL Plasma Lactic Acid Hermes 1.5 (0.7-2.0) mmol/L Calcium 9.5 (8.4-10.2) mg/dL Magnesium 1.5 L (1.6-2.3) mg/dL Total Bilirubin 0.3 (0.2-1.3) mg/dL AST 18 (14-36) U/L ALT 23 (9-52) U/L Alkaline Phosphatase 62 (38-126) U/L Total Creatine Kinase (30-135) U/L CK-MB (CK-2) (0.0-2.4) ng/mL CK-MB (CK-2) Rel Index Troponin I (0.000-0.034) ng/mL Total Protein 6.6 (6.3-8.2) g/dL Albumin 4.1 (3.5-5.0) g/dL Lipase 33 (23-300) U/L Urine Color Urine Appearance (Clear) Urine pH (5.0-8.0) Ur Specific [place] (1.001-1.035) Urine Protein (Negative) Urine Glucose (UA) (Negative) Urine Ketones (Negative) Urine Blood (Negative) Urine Nitrite (Negative) Urine Bilirubin (Negative) Urine Urobilinogen (<2.0) mg/dL Ur Leukocyte Esterase (Negative) Urine HCG, Qual (Not Detectd) Influenza Type A RNA (Not Detectd) Influenza Type B (PCR) (Not Detectd) 09/11/17 09/11/17 Range/Units 19:10 19:10 WBC (3.8-10.6) k/uL RBC (3.80-5.40) m/uL Hgb (11.4-16.0) gm/dL Hct (34.0-46.0) % MCV (80.0-100.0) fL MCH (25.0-35.0) pg MCHC (31.0-37.0) g/dL RDW (11.5-15.5) % Plt Count (150-450) k/uL Neutrophils % % Lymphocytes % % Monocytes % % Eosinophils % % Basophils % % Neutrophils # (1.3-7.7) k/uL Lymphocytes # (1.0-4.8) k/uL Monocytes # (0-1.0) k/uL Eosinophils # (0-0.7) k/uL Basophils # (0-0.2) k/uL PT (9.0-12.0) sec INR (<1.2) APTT (22.0-30.0) sec D-Dimer (<0.60) mg/L FEU Sodium (137-145) mmol/L Potassium (3.5-5.1) mmol/L Chloride (98-107) mmol/L Carbon Dioxide (22-30) mmol/L Anion Gap mmol/L BUN (7-17) mg/dL Creatinine (0.52-1.04) mg/dL Est GFR (CKD-EPI)AfAm (>60 ml/min/1.73 sqM) Est GFR (CKD-EPI)NonAf (>60 ml/min/1.73 sqM) Glucose (74-99) mg/dL Plasma Lactic Acid Hermes (0.7-2.0) mmol/L Calcium (8.4-10.2) mg/dL Magnesium (1.6-2.3) mg/dL Total Bilirubin (0.2-1.3) mg/dL AST (14-36) U/L ALT (9-52) U/L Alkaline Phosphatase (38-126) U/L Total Creatine Kinase (30-135) U/L CK-MB (CK-2) (0.0-2.4) ng/mL CK-MB (CK-2) Rel Index Troponin I (0.000-0.034) ng/mL Total Protein (6.3-8.2) g/dL Albumin (3.5-5.0) g/dL Lipase (23-300) U/L Urine Color Light Yellow Urine Appearance Clear (Clear) Urine pH 6.0 (5.0-8.0) Ur Specific [place] 1.007 (1.001-1.035) Urine Protein Negative (Negative) Urine Glucose (UA) Negative (Negative) Urine Ketones Negative (Negative) Urine Blood Negative (Negative) Urine Nitrite Negative (Negative) Urine Bilirubin Negative (Negative) Urine Urobilinogen <2.0 (<2.0) mg/dL Ur Leukocyte Esterase Negative (Negative) Urine HCG, Qual Not Detected (Not Detectd) Influenza Type A RNA (Not Detectd) Influenza Type B (PCR) (Not Detectd) Disposition Clinical Impression: Costalchondritis, Influenza A Disposition: HOME SELF-CARE Condition: Good Instructions: Costochondritis (ED), Chest Pain (ED), Influenza (ED) Referrals: Allyson Cameron MD [Primary Care Provider] - 1-2 days Time of Disposition: 19:36
[2017-09-11 18:40] LABS: Basophils % (A) 0 %; Eosinophils % (A) 0 %; HCT 42.7 % (34.0-46.0); HGB 15.1 gm/dL (11.4-16.0); Lymphocytes # (A) 0.5 k/uL (1.0-4.8); Lymphocytes % (A) 11 %; MCH 29.3 pg (25.0-35.0); MCHC 35.3 g/dL (31.0-37.0); Mean Platelet Volume 6.8; Monocytes # (A) 0.2 k/uL (0-1.0); Monocytes % (A) 5 %; Neutrophils # (A) 3.8 k/uL (1.3-7.7); Neutrophils % (A) 83 %; Platelet Count 263 k/uL (150-450); RBC 5.15 m/uL (3.80-5.40); RDW 13.4 % (11.5-15.5); WBC 4.6 k/uL (3.8-10.6)
[2017-09-11 18:51] LABS: ALT 23 U/L (9-52); AST 18 U/L (14-36); Albumin 4.1 g/dL (3.5-5.0); Alkaline Phosphatase 62 U/L (38-126); Anion Gap 17 mmol/L; Blood Urea Nitrogen 10 mg/dL (7-17); Calcium 9.5 mg/dL (8.4-10.2); Carbon Dioxide 22 mmol/L (22-30); Chloride 101 mmol/L (98-107); Glucose 158 mg/dL (74-99); Lipase 33 U/L (23-300); Magnesium 1.5 mg/dL (1.6-2.3); Potassium 3.6 mmol/L (3.5-5.1); Sodium 140 mmol/L (137-145); Total Bilirubin 0.3 mg/dL (0.2-1.3); Total Protein 6.6 g/dL (6.3-8.2)
[2017-09-11 18:52] LABS: Creatine Kinase 54 U/L (30-135)
[2017-09-11 19:05] LABS: Creatine Kinase MB 0.3 ng/mL (0.0-2.4); Troponin I <0.012 ng/mL (0.000-0.034)
--- NOTE | 2017-09-11 19:05 | XR ---
EXAMINATION TYPE: XR chest 2V DATE OF EXAM: 09/11/2017 COMPARISON: 04/27/2017 HISTORY: Left-sided chest pain TECHNIQUE: Frontal and lateral views of the chest are obtained. FINDINGS: Heart and mediastinum are normal. Lungs are clear. Diaphragm is normal. Bony thorax is int act. There are chest leads. IMPRESSION: Normal chest. No change.
--- NOTE | 2017-09-11 19:06 | XR ---
EXAMINATION TYPE: XR KUB DATE OF EXAM: 09/11/2017 COMPARISON: NONE HISTORY: Abdominal pain TECHNIQUE: 2 views FINDINGS: Bowel gas pattern is normal. There is no sign of intestinal obstruction or pneumoperitoneum . Fecal pattern is normal. Lung bases are clear. There are no pathologic calcifications. There is sli ght lumbar levoscoliosis. There is no evidence of a mass. IMPRESSION: Nonacute abdomen.
[2017-09-11 19:10] LABS: D-Dimer 0.67 mg/L FEU (<0.60); Partial Thromboplastin Time 27.4 sec (22.0-30.0); Prothrombin Time 9.8 sec (9.0-12.0)
[2017-09-11 19:21] VITALS: BP 133/84; PULSE 102
[2017-09-11 19:25] LABS: Appearance,Urine Clear (Clear); Bilirubin,Urine Negative (Negative); Blood,Urine Negative (Negative); Color,Urine Light Yellow; Glucose,Urine (UA) Negative (Negative); Ketones,Urine Negative (Negative); Leukocyte Esterase,Urine Negative (Negative); Nitrite,Urine Negative (Negative); Protein,Urine Negative (Negative); Specific Gravity,Urine 1.007 (1.001-1.035); Urobilinogen,Urine <2.0 mg/dL (<2.0)
[2017-09-11 19:29] VITALS: TEMP 99.2
== END 2017-09-11 19:47 | disposition home or self-care (01) ==
LOC: EC 17:31
DX: M94.0 Chondrocostal junction syndrome [Tietze] (principal); J10.1 Influenza due to other identified influenza virus with other respiratory manifestations; K21.9 Gastro-esophageal reflux disease without esophagitis; I10 Essential (primary) hypertension; F17.200 Nicotine dependence, unspecified, uncomplicated; Z79.4 Long term (current) use of insulin; Z79.52 Long term (current) use of systemic steroids; Z79.899 Other long term (current) drug therapy; Z88.8 Allergy status to other drugs, medicaments and biological substances
CPT/HCPCS: 36415; 94640; 93005; 85379; 80053; 82550; 82553; 83605; 83690; 83735; 84484; 85025; 85610; 85730; 81003; 81025; 87502; 71046; 74018; 99285; 96374; 96361; J1885

== ENCOUNTER → 2018-06-02 | Outpatient (CLI) | payer OTHER ==
--- NOTE | 2018-06-03 07:14 | US ---
EXAMINATION TYPE: US transvaginal DATE OF EXAM: 06/02/2018 COMPARISON: NONE CLINICAL HISTORY: N92.1 METRORRHAGIA. Metrorrhagia TECHNIQUE: Transvaginal (TV). EXAM MEASUREMENTS: Uterus: 8.2 x 4.1 x 6.4 cm Endometrial Stripe: 0.4 cm Right Ovary: 2.7 x 2.0 x 2.2 cm Left Ovary: 2.9 x 1.9 x 1.6 cm 1. Uterus: Anteverted wnl 2. Endometrium: wnl 3. Right Ovary: Cystic area 1.8 x 1.3 x 1.8 cm 4. Left Ovary: Cystic area 2.0 x 1.9 x 1.5 cm 5. Bilateral Adnexa: wnl 6. Posterior cul-de-sac: wnl IMPRESSION: 1 probable functional ovarian cysts bilaterally. This can be confirmed with follow-up marvin dy in 6 weeks.
== END | disposition home or self-care (01) ==
LOC: RADUSWWP 16:57
PROVIDERS: ATTEND Obstetrics & Gynecology
DX: N92.1 Excessive and frequent menstruation with irregular cycle (principal)
CPT/HCPCS: 76830

== ENCOUNTER → 2018-07-05 | Outpatient (CLI) | payer OTHER ==
--- NOTE | 2018-07-08 17:03 | MM ---
Reason for exam: screening (asymptomatic). Last mammogram was performed 4 years and 11 months ago. MG Screening Mammo w CAD Bilateral CC and MLO view(s) were taken. Prior study comparison: July 29, 2013, CAD bilateral diagnostic mammogram. There are scattered fibroglandular densities. There are benign-appearing bilateral calcifications. No significant changes when compared with prior studies. ASSESSMENT: Benign, BI-RAD 2 RECOMMENDATION: Routine screening mammogram of both breasts in 1 year.
== END ==
LOC: RADMAMWWP 15:21
PROVIDERS: ATTEND Obstetrics & Gynecology
DX: Z12.31 Encounter for screening mammogram for malignant neoplasm of breast (principal)
CPT/HCPCS: 77067

== ENCOUNTER → 2018-07-09 | Outpatient (CLI) | payer OTHER ==
--- NOTE | 2018-07-11 08:59 | MR ---
EXAMINATION TYPE: MR lumbar spine wo con DATE OF EXAM: 07/09/2018 COMPARISON: Prior lumbar MRI dated 12/26/2015 HISTORY: Lumbago with sciatica /Chronic pain TECHNIQUE: Multiplanar, multisequence images of the lumbar spine were acquired. L1-L2: There is some facet arthropathy change present. No significant central stenosis, no disc herni ation or foraminal encroachment. L2-L3: Posterior disc herniation is eccentric towards the right causing some anterolateral mass effec t on the thecal sac similar to prior exam. There is facet arthropathy with hypertrophy ligamentum fla vum causing some posterior lateral mass effect on the thecal sac. No significant central stenosis. La teral extension of endplate disc complex encroaches minimally on the right neural foramen. L3-L4: Circumferential posterior broad-based disc bulge, endplate disc complex contacts the anterior thecal sac, no significant central stenosis. Facet arthropathy with hypertrophy ligamentum flavum con tacts the posterior lateral thecal sac. Minimal right-sided foraminal encroachment. L4-L5: Circumferential posterior broad-based disc bulge, endplate disc complex contacts the anterior thecal sac, no significant central stenosis. There is facet arthropathy encroaching on the lateral re cess greater on the left, circumferential extension endplate disc complex encroaches on the left neur al foramen, findings similar to prior. L5-S1: Facet arthropathy is present. Circumferential posterior disc bulge is mild but may contact the proximal S1 nerve root similar to prior, there is no evident spinal stenosis. Differential extension of endplate disc complex encroaches on the neural foramina as on prior exam. Lumbar segments are intact. No paraspinal masses are identified. Conus medullaris has a normal appe arance. There is a levoscoliosis again noted centered at the mid lumbar spine. Multilevel spondylosis is present with endplate discogenic marrow signal change. Loss of disc height and signal is present at the intervertebral levels of L2-3, L3-4, L4-5 and L5-S1 similar to prior exam, there is associated vacuum disc phenomenon. Lumbar vertebral bodies show preserved height. Mild caliectasis at the upper pole left kidney is a chronic finding. IMPRESSION: Degenerative disc disease, scoliosis, facet arthropathy, foraminal encroachment is similar to prior e xam.
== END | disposition home or self-care (01) ==
LOC: RADMRIMAIN 20:43
PROVIDERS: ATTEND Family Medicine
DX: M51.36 Other intervertebral disc degeneration, lumbar region (principal); M41.86 Other forms of scoliosis, lumbar region; M46.96 Unspecified inflammatory spondylopathy, lumbar region
CPT/HCPCS: 72148

== ENCOUNTER → 2018-07-13 | Outpatient (CLI) | payer OTHER ==
[2018-07-13 11:23] LABS: Basophils # (A) 0.1 k/uL (0-0.2); Basophils % (A) 1 %; Eosinophils # (A) 0.1 k/uL (0-0.7); Eosinophils % (A) 1 %; HCT 41.9 % (34.0-46.0); Lymphocytes # (A) 2.5 k/uL (1.0-4.8); Lymphocytes % (A) 22 %; MCH 30.1 pg (25.0-35.0); MCHC 33.3 g/dL (31.0-37.0); MCV 90.6 fL (80.0-100.0); Mean Platelet Volume 6.5; Monocytes # (A) 0.7 k/uL (0-1.0); Monocytes % (A) 6 %; Neutrophils # (A) 7.7 k/uL (1.3-7.7); Neutrophils % (A) 68 %; Platelet Count 397 k/uL (150-450); RBC 4.63 m/uL (3.80-5.40); RDW 14.2 % (11.5-15.5); WBC 11.3 k/uL (3.8-10.6)
[2018-07-13 17:14] LABS: Hepatitis B Surface AB- Quant 3.5 mIU/mL; Hepatitis C IgG Antibody Non-Reactive (Non-Reactive)
== END | disposition home or self-care (01) ==
LOC: LABWHC1 10:51
PROVIDERS: ATTEND Dermatology
DX: L30.1 Dyshidrosis [pompholyx] (principal)
CPT/HCPCS: 36415; 82565; 84450; 84460; 84520; 85025; 86706; 86803; 87340

== ENCOUNTER → 2018-08-05 | Outpatient (CLI) | payer OTHER ==
[2018-08-04 11:09] VITALS: BMI 30.5
[2018-08-05 11:06] VITALS: BP 134/84; PULSE 80; RESP 16; TEMP 98.1
--- NOTE | 2018-08-05 12:45 | P.PAINCN ---
History of Present Illness - Reason for Consult Consult date: 08/05/18 - History of Present Illness Jacqueline is a 38-year-old female presents today with chief complaint of low back pain. She reports she has back pain going across her low back which is an aching and sometimes sharp shooting pain into her right leg. She reports that the pain goes down all the way to her foot at times. She reports a numbness and a tingling sensation going down the right leg as well. She reports she's had this pain in the past and was treated with epidural steroid injections which were not very helpful for her pain. She feels that her back pain is significant with walking and standing for prolonged periods as well as bending her standing up from a seated position. She denies any bowel or bladder incontinence. Denies any new lower extremity weakness. She feels that her lower extremity is a little bit weaker compared to the past. She has been in physical therapy for 6 weeks and reports that that did not help very much. She tries to do daily stretches but isn't pain. She does not use any pain medications except [id number] medications. Past Medical History Past Medical History: Chest Pain / Angina, GERD/Reflux, Hyperlipidemia, Hypertension, Syncope Additional Past Medical History / Comment(s): Diverticulitis(bowel resection ) History of Any Multi-Drug Resistant Organisms: None Reported Past Surgical History: Adenoidectomy, Bowel Resection, Tonsillectomy Additional Past Surgical History / Comment(s): cyst removal from left wrist, Past Anesthesia/Blood Transfusion Reactions: No Reported Reaction Smoking Status: Current every day smoker - Past Family History Father Family Medical History: Hypertension, Syncope Mother Additional Family Medical History / Comment(s): - due to brain aneurysm Medications and Allergies Home Medications Medication Instructions Recorded Confirmed Type Omeprazole [PriLOSEC] 20 mg PO DAILY PRN 08/06/14 08/04/18 History Hydrochlorothiazide [Hydrodiuril] 25 mg PO DAILY 04/20/17 08/04/18 History amLODIPine [Norvasc] 10 mg PO DAILY 04/20/17 08/04/18 History Acetaminophen [Tylenol Extra 500 mg PO Q6HR PRN 09/11/17 08/04/18 History Strength] Betamethasone Dipropionate 1 applic TOPICAL DAILY PRN 09/11/17 08/04/18 History [Diprolene AF 0.05% Cream] Cyclobenzaprine [Flexeril] 10 mg PO HS PRN 09/11/17 08/04/18 History Hydrocortisone Cream 1 applic TOPICAL BID PRN 09/11/17 08/04/18 History [Hydrocortisone 2.5% Cream] Ibuprofen [Motrin] 800 mg PO DAILY 08/04/18 08/04/18 History Pravastatin Sodium [Pravachol] 40 mg PO HS 08/04/18 08/04/18 History metFORMIN HCL 500 mg PO BID 08/04/18 08/04/18 History Allergies Allergy/AdvReac Type Severity Reaction Status Date / Time bupropion [From Wellbutrin] Allergy CAUSED Verified 08/04/18 11:02 DIZZINESS Physical Exam Vitals: Vital Signs Temp Pulse Resp BP 08/05/18 10:59 98.1 F 80 16 134/84 General: Awake and alert oriented 3 no distress Respiratory exam: No audible wheezing no accessory muscle usage Cardiovascular exam: regular rate, palpable bilateral pulses, no lower extremity edema Abdominal exam: No distention nontender to palpation Cervical spine: Normal alignment, Spurling's negative, facet loading negative Lumbar spine: Loss of lumbar lordosis, normal alignment, tender to palpation over bilateral paraspinal muscles, facet loading is positive bilaterally. Straight leg raise is negative. Sacroiliac joints: tender to palpation, HANNA is negative, Gaenselon negative Neuro exam: Normal sensation in bilateral upper extremities, deep tendon reflexes are 2+ bilateral upper extremities. Normal sensation in bilateral lower extremities. Deep tendon reflexes are 2+ in lower extremities Almeida's is negative Psych exam: Cooperative, appropriate mood Assessment and Plan Assessment: #1 Lumbar spondylosis without myelopathy #2 lumbar radiculopathy Plan: After examination the patient and review of her medical records and discussion with the patient I feel that the patient would benefit most from a medial branch block. I discussed with her that we would use local only is she is diabetic and has steroid injections in her hands from another doctor. We'll perform the medial branch block with local only and move forward with a second medial branch block if she has good relief. I discussed with her possible three -step process including radiofrequency ablation. The risks benefits and alternatives to the procedure all discussed with the patient. PQRS Measure Charge Sheet PQRS Narrative: Smoking Status Current every day smoker Blood Pressure 134/84 Pain Intensity [Right Lower 8 Back] Scale Used Numeric (1 - 10) Home Medications: Ambulatory Orders Omeprazole [PriLOSEC] 20 mg PO DAILY PRN 08/06/14 Hydrochlorothiazide [Hydrodiuril] 25 mg PO DAILY 04/20/17 amLODIPine [Norvasc] 10 mg PO DAILY 04/20/17 Acetaminophen [Tylenol Extra Strength] 500 mg PO Q6HR PRN 09/11/17 Betamethasone Dipropionate [Diprolene AF 0.05% Cream] 1 applic TOPICAL DAILY PRN 09/11/17 Cyclobenzaprine [Flexeril] 10 mg PO HS PRN 09/11/17 Hydrocortisone Cream [Hydrocortisone 2.5% Cream] 1 applic TOPICAL BID PRN Ibuprofen [Motrin] 800 mg PO DAILY 08/04/18 Pravastatin Sodium [Pravachol] 40 mg PO HS 08/04/18 metFORMIN HCL 500 mg PO BID 08/04/18
== END | disposition home or self-care (01) ==
LOC: PNWHC3 10:49
PROVIDERS: ATTEND Hospitalist
DX: M47.26 Other spondylosis with radiculopathy, lumbar region (principal); F17.200 Nicotine dependence, unspecified, uncomplicated; K21.9 Gastro-esophageal reflux disease without esophagitis; E78.5 Hyperlipidemia, unspecified; I10 Essential (primary) hypertension; R55 Syncope and collapse; Z90.89 Acquired absence of other organs; Z98.890 Other specified postprocedural states; Z79.899 Other long term (current) drug therapy; Z79.891 Long term (current) use of opiate analgesic; Z79.1 Long term (current) use of non-steroidal anti-inflammatories (NSAID); Z79.84 Long term (current) use of oral hypoglycemic drugs; Z88.8 Allergy status to other drugs, medicaments and biological substances
CPT/HCPCS: 99211

== ENCOUNTER 2018-08-17 08:29 | Day surgery (SDC) | payer OTHER ==
[~2018-08-17 08:29] MED LIST: SODIUM CHLORIDE 0.9% 500 ML 500 ML IV SCH
[2018-08-17] MEDS ORDERED: LACTATED RINGERS 1,000 ML IV ONE (08:54)
[2018-08-17] MEDS ORDERED: LIDOCAINE 1% 20 ML VIAL (10MG/ML) FOR IV START INTRADERMA ONE (08:55)
[2018-08-17 08:57] VITALS: TEMP 97.5
[2018-08-17 09:02] LABS: Glucose,Whole Blood 87 mg/dL (75-99)
--- NOTE | 2018-08-17 09:21 | P.PCN ---
Date of Procedure: 08/17/18 Procedure(s) Performed: PREOPERATIVE DIAGNOSIS : 1- Lumbar spondylosis with Facet Arthropathy without myelopathy . POSTOPERATIVE DIAGNOSIS: 1- Lumbar spondylosis with Facet Arthropathy without myelopathy . PROCEDURE: Diagnostic bilateral L3 -4 , L4 -5 , and L5-S1 medial branch block under fluoroscopy ANESTHESIA: Local with Ropivacain 0.5 % 6 ml , moderate sedation with intravenous Versed 4 mg and Fentanyl 100 mcg. EBL: Minimal COMPLICATION: None. IV FLUIDS: 100 mL of normal saline. PROCEDURE INDICATION: Chronic low back pain secondary to Facet arthropathy unresponsive to conservative treatment. PROCEDURE DESCRIPTION: the patient was seen and identified in the preop holding area , risks and benefits and possible complications of the procedure and alternative were discussed with the patient, and the patient agreed to proceed with the procedure and signed the consent IV was started and vital signs monitored during the procedure and fluoroscopy was used to maximize the benefit and accuracy of the needle placement, and sedation was given to decrease patient anxiety, patient was taken to the procedure room and placed in prone position vital signs monitored in the back prepped with chlorhexidine X3 then under strict sterile technique using a right oblique fluoroscopy ,the junction of the transverse process and the superior articulating process of the right L3- 4 , L4- 5, and L5-S1 vertebra which corresponding to the fluoroscopy image of the eye of the Tanner dog on the block side for the medial branches and subsequently , after local infiltration of skin and subcu tissuies with Ropivacaine 0.5 % , one mL at each level , then 22-gauge Quincke-type needles , 3 needle was used , each one of them placed at the junction of the base of the transverse process and the superior articular process at the appropriate level, and the needle was advanced until the periosteum contacted, needle placement confirmed with AP oblique and lateral view and after appropriate needle placement confirmed, and after negative aspiration for heme and CSF and there was no paresthesia 1-1/2 mL of Ropivacaine 0.5% mixed with 20 mg Kenalog , then half mL injected at each level after negative aspiration the needle subsequently removed and the same procedure repeated for the left side at left side at L3-4, L4- 5 and L5-S1 levels. At the end of the procedure and the needles removed and a bandage applied after the skin was cleaned the cleaning solution patient taken to recovery room in stable condition and monitors in the recovery room for 20-30 minutes and discharged home in stable condition after discharge criteria met and patient will follow up with the pain clinic in 2-4 weeks
[2018-08-17] MEDS ORDERED: IV FLUID CONTINUATION 1,000 ML IV ONE (09:26)
[2018-08-17 09:28] VITALS: RESP 18
[2018-08-17 09:47] VITALS: BP 130/89; PULSE 71
--- NOTE | 2018-08-17 11:21 | FL ---
Fluoroscopy HISTORY: Pain 14 seconds fluoroscopy time supplied to the referring clinician. 4 intraoperative C-arm images docum ent the procedure. See dictated report from anesthesia.
== END 2018-08-17 10:01 | disposition home or self-care (01) ==
LOC: ORPAIN 08:29
PROVIDERS: ATTEND Specialist
DX: G89.29 Other chronic pain (principal); M47.816 Spondylosis without myelopathy or radiculopathy, lumbar region
CPT/HCPCS: 81025; 64493; 64494; 64495; J2250; J1030; J3010; 99152

== ENCOUNTER 2018-08-31 07:58 | Day surgery (SDC) | payer OTHER ==
[2018-08-26 13:20] VITALS: BMI 26.5
[2018-08-31] MEDS ORDERED: LACTATED RINGERS 1,000 ML IV ONE (08:15)
[2018-08-31] MEDS ORDERED: LIDOCAINE 1% 20 ML VIAL (10MG/ML) FOR IV START INTRADERMA ONE (08:16)
[2018-08-31 08:32] VITALS: RESP 16; TEMP 97.3
[2018-08-31 08:32] LABS: Glucose,Whole Blood 89 mg/dL (75-99)
[2018-08-31] MEDS ORDERED: IV FLUID CONTINUATION 1,000 ML IV ONE (09:20)
[2018-08-31 09:36] VITALS: BP 136/86; PULSE 73
--- NOTE | 2018-08-31 11:09 | FL ---
Fluoroscopy HISTORY: Pain 2 seconds fluoroscopy time supplied to the referring clinician. 1 intraoperative C-arm images docume nt the procedure. See dictated report from anesthesia.
--- NOTE | 2018-08-31 13:34 | P.PCN ---
Date of Procedure: 08/31/18 Surgeon: Miles Marshall Description of Procedure: PREOPERATIVE DIAGNOSIS : Lumbar spondylosis with Facet Arthropathy without myelopathy POSTOPERATIVE DIAGNOSIS: same PROCEDURE: Diagnostic lumbar medial branch block with fluoroscopy at bilateral L4, L5, sacral ala ANESTHESIA: Local anesthetic; moderate conscious sedation with 2 mg of midazolam and 100 g of fentanyl Surgeon: Miles Marshall MD PROCEDURE INDICATION: This is a very pleasant 38-year-old woman with a history of intractable low back pain who presents today for repeat of bilateral lumbar medial branch nerve block. She reports good relief from her first set of these injections. She had greater than 50% reduction of her pain. PROCEDURE DESCRIPTION: the patient was seen and identified in the preop holding area , risks and benefits and possible complications of the procedure and alternative were discussed with the patient, and the patient agreed to proceed with the procedure and signed the consent IV was started and vital signs monitored during the procedure and fluoroscopy was used to maximize the benefit and accuracy of the needle placement, and sedation was given to decrease patient anxiety, patient was taken to the procedure room and placed in prone position vital signs monitored in the back prepped. Under strict sterile technique using a right oblique fluoroscopy ,the junction of the transverse process and the superior articulating process of the bilateral L3- 4 , L4- 5, and L5-S1 vertebra which corresponding to the fluoroscopy image of the eye of the Tanner dog on the block side for the medial branches and subsequently , after local infiltration of skin and subcutaneous tissues with lidocaine 1% one mL at each level ,then one 25-gauge Quincke-type needles was placed at the junction of the base of the transverse process and the superior articular process at the appropriate level, and the needle was advanced until the periosteum contacted, needle placement confirmed with AP oblique and lateral view and after appropriate needle placement confirmed, and after negative aspiration, 0.5 mL of Marcaine 0.5% mixed with 10 mg depomedrol in divided doses was injected at each level and the needle subsequently removed . A total of 80 mg of Depo-Medrol and 6 mL of 0.5% ropivacaine was used. At the end of the procedure and the needles removed and a bandage applied after the skin was cleaned the cleaning solution patient taken to recovery room in stable condition and monitors in the recovery room for 20-30 minutes and discharged home in stable condition after discharge criteria met and patient will follow up with the pain clinic in 2-4 weeks EBL: Minimal COMPLICATION: None.
== END 2018-08-31 09:47 | disposition home or self-care (01) ==
LOC: ORPAIN 07:58
PROVIDERS: ATTEND Pain Medicine Pain Medicine
DX: M47.816 Spondylosis without myelopathy or radiculopathy, lumbar region (principal); Z88.8 Allergy status to other drugs, medicaments and biological substances
CPT/HCPCS: 81025; 64493; 64494; 64495; J2250; J1030; J3010

== ENCOUNTER → 2018-09-16 | Outpatient (CLI) | payer OTHER ==
[2018-09-16 13:59] VITALS: BP 149/100; PULSE 149; RESP 16
--- NOTE | 2018-09-16 14:28 | P.PAINPG ---
Subjective Progress Note Date: 09/16/18 Jacqueline is a 38-year-old female presents today for follow-up. She had bilateral medial branch blocks done and reports that she had very good relief. He was done with her local and she said she had relief for many hours and possibly into the next day. She is very happy with the results and is interested in moving for the radiofrequency ablation. As for her back pain has not changed recently and continues to be across her low back causing her pain with sitting or standing for long periods of time. She has pain with extension and flexion of lumbar spine denies any significant radicular symptoms. She denies any bowel or bladder dysfunction. Objective - Vital Signs Vital signs: Vital Signs Temp Pulse 149 H 09/16/18 13:50 Resp 16 09/16/18 13:50 BP 149/100 09/16/18 13:50 Pulse Ox 97 09/16/18 13:50 Intake & Output 09/15/18 09/16/18 09/16/18 18:59 06:59 18:59 Weight 74.843 kg - Exam General: Awake and alert oriented 3 no distress Respiratory exam: No audible wheezing no accessory muscle usage Cardiovascular exam: regular rate, palpable bilateral pulses, no lower extremity edema Abdominal exam: No distention nontender to palpation Cervical spine: Normal alignment, Spurling's negative, facet loading negative Lumbar spine: Loss of lumbar lordosis, normal alignment, tender to palpation over bilateral paraspinal muscles, facet loading is positive bilaterally. Straight leg raise is negative. Sacroiliac joints: Nontender to palpation, HANNA is negative, Gaenselon negative Neuro exam: Normal sensation in bilateral upper extremities, deep tendon reflexes are 2+ bilateral upper extremities. Normal sensation in bilateral lower extremities. Deep tendon reflexes are 2+ in lower extremities Psych exam: Cooperative, appropriate mood Assessment and Plan Assessment: #1 lumbar spondylosis without myelopathy Plan: After discussion with the patient I do believe that morning for the radiofrequency ablation be beneficial for her. I spent time discussed with her the procedure in detail. I went over the risks, benefits, alternatives of the procedure. We went over that timeframe of the benefit she should expect after the procedure. She had many questions that she has a lot of anxiety about the procedure. Major she is very comfortable we discussed what she should expect and how we will perform the procedure in detail. She agrees and is willing to move forward with the procedure. PQRS Measure Charge Sheet Measure #130: Documentation of Current Meds in Medical Chart: Patient's medications documented in chart Measure #226: Tobacco Use: Screen & Cessation Intervention: Pt not a tobacco user Measure #47: Advance Care Plan: Advance care planning discussed & documented, plan or surrogate given Measure #412: Opioid Treatment Agreement: No documentation of signed opioid treatment agreement Measure #317: Preventitive Care & Scrn High Bld Press & F/U: Normal blood pressure, f/u not required Measure #128: Body Mass Index (BMI) Screening & Follow-up: BMI documented ABOVE normal parameters - f/u documented Measure #131: Pain Assessment & Follow-up: Pain positive & plan documented, Follow-up scheduled Measure #431: Unhealthy Alcohol Use Preventative Care & Scrn: Patient not identified as an unhealthy alcohol user PQRS Narrative: Smoking Status Current every day smoker Do You Want the Pneumonia Vaccine Up to Date Vaccine AT THIS TIME? Blood Pressure 149/100 Pain Intensity [Bilateral 5 Lower Back] Scale Used Numeric (1 - 10) Hx Alcohol Use (MH) No Home Medications: Ambulatory Orders Omeprazole [PriLOSEC] 20 mg PO DAILY PRN 08/06/14 Hydrochlorothiazide [Hydrodiuril] 25 mg PO DAILY 04/20/17 amLODIPine [Norvasc] 10 mg PO DAILY 04/20/17 Acetaminophen [Tylenol Extra Strength] 2 tab PO DAILY 09/11/17 Cyclobenzaprine [Flexeril] 10 mg PO HS PRN 09/11/17 Hydrocortisone Cream [Hydrocortisone 2.5% Cream] 1 applic TOPICAL BID PRN 09/11/17 Ibuprofen [Motrin] 800 mg PO DAILY 08/04/18 Pravastatin Sodium [Pravachol] 40 mg PO HS 08/04/18 metFORMIN HCL 500 mg PO BID 08/04/18 Clobetasol Propionate [Temovate 0.05% Cream] 1 applic TOPICAL DAILY PRN 08/11/18 Controlled Substance Measures - Controlled Substance Measures Is patient prescribed a controlled substance at discharge?: No
== END ==
LOC: PNWHC3 13:42
PROVIDERS: ATTEND Hospitalist
DX: M47.816 Spondylosis without myelopathy or radiculopathy, lumbar region (principal); F17.200 Nicotine dependence, unspecified, uncomplicated; Z79.899 Other long term (current) drug therapy; Z79.84 Long term (current) use of oral hypoglycemic drugs; Z79.1 Long term (current) use of non-steroidal anti-inflammatories (NSAID)
CPT/HCPCS: 99211

== ENCOUNTER 2018-12-06 09:49 | Day surgery (SDC) | payer OTHER ==
[2018-12-03 09:48] VITALS: BMI 23.0
[~2018-12-06 09:49] MED LIST changes: +LACTATED RINGERS 1,000 ML IV SCH; -SODIUM CHLORIDE 0.9% 500 ML 500 ML IV SCH
[2018-12-06 10:15] VITALS: TEMP 98.9
[2018-12-06 10:20] LABS: Glucose,Whole Blood 103 mg/dL (75-99)
--- NOTE | 2018-12-06 11:06 | P.PCN ---
Date of Procedure: 12/06/18 Procedure(s) Performed: PREOPERATIVE DIAGNOSIS: 1-Lumbar Spondylosis with Facet Arthropathy without myelopathy. 2- Lumber degenerative disc disease POSTOPERATIVE DIAGNOSIS: 1- Lumbar Spondylosis with Facet Arthropathy without myelopathy. 2- Lumber degenerative disc disease PROCEDURES : Right Radiofrequency thermocoagulation, L3-L4, L4-L5, and L5-S1 medial branch, with fluoroscopic guidance ANESTHESIA: Moderate sedation with intravenous versed 2 mg and fentaneyl 200 mcg, and local infiltration with Ropivacaine 0.5 % . EBL: Minimal PROCEDURE INDICATION: The patient with low back pain secondary to lumbar facet arthropathy who had more than 50% relief of her pain with previous diagnostic lumbar medial branch block with bupivacaine. PROCEDURE DESCRIPTION / TECHNIQUE: The patient was seen and identified in the preoperative area. Risks, benefits, complications, including but not limited to risk of infection ,bleeding , allergic reactions to the medications and no complete pain releife , and alternatives were discussed with the patient, the patient agreed to proceed with the procedure and signed the consent. IV was started. Vital signs remained stable throughout the procedure. Patient was taken to the OR and time out was completed. The patient was placed in the prone position on the procedure table. The lumber area was prepped and draped in the usual sterile fashion. . Vital signs were closely monitored during the procedure .IV sedation was used during the procedure to decrease patients anxiety. Using AP and then oblique fluoroscopy, the ``eye of the Tanner dog corresponding to the connection between the superior and transverse articular processes of right L3, L4, and L5 were identified, marked, and localized with 1% lidocaine. Subsequently, a [id number] radiofrequency cannula with a 10- mm active tip was advanced guided by fluoroscopy to each of the``eyes of the Tanner dog at right L3, L4, and L5. Each site then underwent sensory testing at 50 Hz and 0 to 1 volt and motor testing at 2.5 Hz and 0 to 3 volt with local stimulation, but no radicular symptoms down the legs. Thereafter the right L3-4, L4-5, and L5-S1 sites underwent radiofrequency thermocoagulation at 80 degrees celsius for 90 seconds after injecting 0.5 ml of PF Ropivacaine 1ml, then after the thermocoagulation done , 1 ml of the block solution containing Depo-Medrol 40 mg and 3 ml of Ropivacaine 0.5% was injected at the right L3-4 , L4-5 , and L5-S1, levels after negative aspiration of CSF and blood and with no paresthesias. Cannulas were retracted while injecting lidocaine 1% until the needle is out. At the end of the procedure, the skin was cleansed and bandages were applied. COMPLICATIONS: No acute complications. DISPOSITION / PLANS: The patient was placed in a supine position and transferred to the recovery area in a stable condition for observation and was discharged from the recovery room after meeting discharge criteria. Home discharge instructions given to the patient by the staff. The patient was reexamined prior to discharge. The patient will schedule a follow up in the clinic in 2-4 weeks.
[2018-12-06] MEDS ORDERED: IV FLUID CONTINUATION 1,000 ML IV ONE (11:14)
[2018-12-06 11:19] VITALS: RESP 18
[2018-12-06 11:39] VITALS: BP 125/77; PULSE 84
--- NOTE | 2018-12-06 14:37 | FL ---
Fluoroscopy HISTORY: Pain 11 seconds fluoroscopy time supplied to the referring clinician. 3 intraoperative C-arm images docum ent the procedure. See dictated report from anesthesia.
== END 2018-12-06 11:54 | disposition home or self-care (01) ==
LOC: ORPAIN 09:49
PROVIDERS: ATTEND Specialist
DX: M47.816 Spondylosis without myelopathy or radiculopathy, lumbar region (principal); M51.36 Other intervertebral disc degeneration, lumbar region; I10 Essential (primary) hypertension; E11.9 Type 2 diabetes mellitus without complications; Z88.8 Allergy status to other drugs, medicaments and biological substances
CPT/HCPCS: 81025; 64635; 64636; J2250; J1030; J3010; 99152

== ENCOUNTER → 2019-03-22 | Outpatient (CLI) | payer OTHER ==
--- NOTE | 2019-03-22 12:01 | P.PAINPG ---
Subjective Progress Note Date: 03/22/19 Mrs. Brothers is a 38-year-old female who follows up after right lumbar RFA. She states that she has had excellent relief with her RFA and is very happy. However she does have new bothersome pain which is at the right belt line and below and travels down the posterior thigh. She does have some pain past the knees all the way to her foot, however this is a minority of her pain. Of note she has a lumbar RFA on the left side scheduled in 2 days, however since her pain is so bad in the buttock. Thigh area, she would prefer to have a procedure for this pain. She reports no red flag symptoms. Otherwise she reports no changes in her health. Objective - Vital Signs Vital signs: Intake & Output 03/21/19 03/22/19 03/22/19 18:59 06:59 18:59 Weight 70.307 kg - Exam Vital Signs: Reviewed in EMR GENERAL: Well appearing, in no acute distress, PSYCH: Mood and affect is appropriate. Awake, alert, and oriented SKIN: Skin color, texture, turgor normal, no rashes or lesions HEENT: Normocephalic, atraumatic. EOM intact CV: No pedal edema RESP: Respirations are unlabored, no audible wheezing GI: Abdomen non-distended MUSCULOSKELETAL: Bilateral upper and lower extremity strength is normal and symmetric. No atrophy or tone abnormalities are noted. Lumbar spine: Positive pain to palpation over the lumbar spine and paraspinous muscles. Positive for pain with facet loading and back extension/rotation. Buttocks: She does have pain with palpation in the right PSIS, this is actually extremely painful. She has a positive Jessica sign, positive Gaenslen sign, positive Buena sign. Extremities: Peripheral joint ROM is full and pain free without obvious instability or laxity in all four extremities. No edema or skin discolorations noted. Gait: Gait is anantalgic NEUR: No loss of sensation is noted. Cranial nerves are grossly intact. Assessment and Plan Assessment: Assessment: 1. Lumbar spondylosis 2. SI joint dysfunction 3. Lumbar radicular pain Plan: 1. Explanation: I spoke to her about the multiple causes of pain, given her extreme tenderness to palpation at the right PSIS, I believe that the majority of her pain is coming from the right SI joint. It is possible that she is experiencing lumbar radicular pain, especially in the light of having pain below the knee. However at this time it appears her majority of her pain is from the SI joint. 2. Opioid agreement: None 3. Counseling: The patient was counseled extensively on BODY MASS INDEX, EXERCISE. Specifically, the patient was instructed regarding the importance of weight control, and exercise in the context of both chronic pain and overall health. 4. Procedures: I would like to schedule her for right SI joint injection, she would like to have it in 2 days, this is one her left lumbar RFA scheduled. Thus she would like to switch out the procedures. 5. Consultations: None 6. Investigations: MRI reviewed 7. Medications: No medications prescribed by her clinic 8. Disposition: We will see her for procedure in 2 days , PQRS Measure Charge Sheet Measure #226: Tobacco Use: Screen & Cessation Intervention: Pt screened for tobacco use AND intervention given Measure #111: Pneumonia Vaccination: Pneumococcal vaccine NOT administered or previously given Measure #47: Advance Care Plan: Advance care planning discussed & documented, pt chose/unable to give Measure #412: Opioid Treatment Agreement: No documentation of signed opioid treatment agreement Measure #408: Opioid Therapy Follow-up Evaluation: Patient had f/u eval minimum every 3 months during opioid therapy Measure #131: Pain Assessment & Follow-up: Pain positive & plan documented, Follow-up scheduled PQRS Narrative: Smoking Status Current every day smoker Pain Intensity [Right Leg] 10 Scale Used Numeric (1 - 10) Hx Alcohol Use (MH) No Home Medications: Ambulatory Orders Omeprazole [PriLOSEC] 20 mg PO DAILY PRN 08/06/14 Hydrochlorothiazide [Hydrodiuril] 25 mg PO DAILY 04/20/17 amLODIPine [Norvasc] 10 mg PO DAILY 04/20/17 Acetaminophen [Tylenol Extra Strength] 2 tab PO DAILY 09/11/17 Cyclobenzaprine [Flexeril] 10 mg PO HS PRN 09/11/17 Hydrocortisone Cream [Hydrocortisone 2.5% Cream] 1 applic TOPICAL BID PRN 09/11/17 Ibuprofen [Motrin] 800 mg PO DAILY 08/04/18 Pravastatin Sodium [Pravachol] 40 mg PO HS 08/04/18 metFORMIN HCL 500 mg PO BID 08/04/18 Clobetasol Propionate [Temovate 0.05% Cream] 1 applic TOPICAL DAILY PRN 08/11/18 Controlled Substance Measures - Controlled Substance Measures Is patient prescribed a controlled substance at discharge?: No
== END | disposition home or self-care (01) ==
LOC: PNWHC3 11:20
PROVIDERS: ATTEND Student in an Organized Health Care Education/Training Program
DX: M47.26 Other spondylosis with radiculopathy, lumbar region (principal); M53.3 Sacrococcygeal disorders, not elsewhere classified; F17.200 Nicotine dependence, unspecified, uncomplicated; Z79.1 Long term (current) use of non-steroidal anti-inflammatories (NSAID); Z79.84 Long term (current) use of oral hypoglycemic drugs; Z79.899 Other long term (current) drug therapy
CPT/HCPCS: 99211

== ENCOUNTER 2019-03-24 07:40 | Day surgery (SDC) | payer OTHER ==
[2019-03-22 14:43] VITALS: BMI 24.3
[2019-03-24 08:01] VITALS: RESP 16; TEMP 98.4
[2019-03-24 08:12] LABS: Glucose,Whole Blood 79 mg/dL (75-99)
--- NOTE | 2019-03-24 08:54 | P.PCN ---
Date of Procedure: 03/24/19 Procedure(s) Performed: Procedure: Right sacroiliac joints steroid injection under fluoroscopy guidance Preoperative diagnosis: Right SI joint dysfunction Postoperative diagnosis: same Complication: none Condition: stable Anesthesia= moderate sedation with 2 mg Versed and 100 mcg fentanyl and local infiltration with lidocaine 1% 5 mL Indication for the procedure: patient complaining of low back pain , examination was positive for severe tenderness over the sacroiliac joints bilaterally and patient diagnosed with sacroiliitis, for this reason s/he was good candidate for sacroiliac joint steroid injection. Description of the procedure= procedure risk and benefits discussed with the patient, including but not limited, risk of infection and bleeding, and ALLERGIC reaction to the medication and not complete pain relief and patient agreed with the preceding patient taken to the operating room, placed in prone position or standard monitors applied to the patient then after induction of anesthesia back prepped with chlorhexidine Then under strict sterile technique, first I did the right sacroiliac joint the which was identified under fluoroscopy guidance been local infiltration of the skin and subq interstitial with lidocaine 1% then 22-gauge Quincke Needle advanced slowly under fluoroscopy and placed in the right sacroiliac joint needle placement confirmed with AP and oblique and lateral view and after appropriate needle placement confirmed and after negative aspiration, or heme the Ropivicaine 0.5% 2 mL and 40 mg of Kenalog mixed together and injected in the right sacroiliac joint after negative aspiration patient tolerated the procedure well without any complication. The patient tolerated the procedure well that any complications and will follow up in clinic. Note she was originally scheduled for her left lumbar RFA, however she was seen in clinic and most of her pain was in the right SI joint region. Thus she will be reevaluated in clinic to see what next steps are.
[2019-03-24] MEDS ORDERED: IV FLUID CONTINUATION 1,000 ML IV ONE (08:57)
[2019-03-24 09:05] LABS: Glucose,Whole Blood 88 mg/dL (75-99)
[2019-03-24 09:19] VITALS: BP 122/86; PULSE 78
--- NOTE | 2019-03-24 09:20 | FL ---
EXAMINATION TYPE: FL guided pain mgmt statistic DATE OF EXAM: 03/24/2019 HISTORY: Flouroscopy time 10 seconds of fluoroscopy provided. IMPRESSION: 1. Fluoroscopy time.
== END 2019-03-24 09:26 | disposition home or self-care (01) ==
LOC: ORPAIN 07:40
PROVIDERS: ATTEND Student in an Organized Health Care Education/Training Program
DX: M53.3 Sacrococcygeal disorders, not elsewhere classified (principal); M47.26 Other spondylosis with radiculopathy, lumbar region; F17.200 Nicotine dependence, unspecified, uncomplicated; Z79.84 Long term (current) use of oral hypoglycemic drugs; Z79.1 Long term (current) use of non-steroidal anti-inflammatories (NSAID); Z79.899 Other long term (current) drug therapy; Z88.8 Allergy status to other drugs, medicaments and biological substances
CPT/HCPCS: 81025; J2250; J3301; J3010; Q9966; G0260; 27096

== ENCOUNTER → 2019-08-25 | Outpatient (CLI) | payer OTHER ==
[2019-08-25 14:13] VITALS: BP 125/80; PULSE 78; RESP 16
--- NOTE | 2019-08-25 14:35 | P.PAINPG ---
Subjective Progress Note Date: 08/25/19 This is a 39 years old female, with a chronic history of severe low back pain she is diagnosed with lumbar spondylosis with lumbar facet arthropathy, and lumbar degenerative disc disease and right sacroiliitis, November 2018 we have done RFA of the right-sided medial branch at L3, L4,L5 , patient did very well until recently when she started having severe low back pain, the pain mostly in the low back area with radiation to the posterior and lateral aspect of her right leg, she denies any motor or sensory deficit she denies any fever or night sweats with tenderness no change in the bowel movements or urination, she continued to use Motrin 800 mg when necessary twice a day and Flexeril 10 mg twice a day when necessary, she denies any side effects of the medication and she is getting prescription refills from her primary care Objective - Vital Signs Vital signs: Vital Signs Temp Pulse 78 08/25/19 14:05 Resp 16 08/25/19 14:05 BP 125/80 08/25/19 14:05 Pulse Ox 97 08/25/19 14:05 - Exam Physical Examinations : -Constitutiona : Cooperative , not in acute distress . -HEENT : nech : supple , no Lymphadenopathy , normal thyroid size . : eyes : no ptosis , no icterus, no photophobia . - neurologic : Cranial nerve II to XII intact , no focal neurological deffecit . -psychatric : alert , oriented X 3 , appropriate affect , intact judgment and insight . -Lymphatic : no Lymphadenopathy . - musculoskeltal : Lumber spine moter stegnth lower extremities ,thigh and legs 5/5 Right side , 5/5 Left side deep tendon reflexes : normal Knee Jerk , normal ankle Jerk lumber facet Loading Test =positive Right , positive Left Range of motion of the lumbar spine Flexion 60 degrees, extension 30 degrees strait leg raising test = positive at 30 degree on the right side, negative on the left side Fabere test= positive Right , and negative LT . Sever tenderness over the Sacroiliac joint on the Right , negative on the Left sides Gaenslen test= positive right ,and negative left . Seated flexion test= positive right ,and negative Left . MRI of the lumbar spine done in 07/09/2018= multilevel lumbar degenerative disc disease and multilevel lumbar facet arthropathy Assessment and Plan Plan: Assessment and plan= lumbar spondylosis with lumbar facet arthropathy without myelopathy. Lumbar degenerative disc disease. Right sacroiliitis. Patient had excellent pain relief after the RFA of the right medial branch lumbar area, which was done in November 2018, she will be a good Candidate to have repeat RFA of the right medial branch at L3, L4, L5 Time with Patient: Less than 30 PQRS Measure Charge Sheet Measure #130: Documentation of Current Meds in Medical Chart: Patient's medications documented in chart Measure #226: Tobacco Use: Screen & Cessation Intervention: Pt screened for tobacco use AND intervention given Measure #111: Pneumonia Vaccination: Pneumococcal vaccine administered or previously received Measure #47: Advance Care Plan: Advance care planning discussed & documented, pt chose/unable to give Measure #412: Opioid Treatment Agreement: No documentation of signed opioid treatment agreement Measure #408: Opioid Therapy Follow-up Evaluation: Patient had NO f/u eval minimum every 3 months during opioid therapy Measure #317: Preventitive Care & Scrn High Bld Press & F/U: Normal blood pressure, f/u not required Measure #128: Body Mass Index (BMI) Screening & Follow-up: BMI documented within normal parameters Measure #131: Pain Assessment & Follow-up: Pain positive & plan documented, Follow-up scheduled Measure #431: Unhealthy Alcohol Use Preventative Care & Scrn: Patient not identified as an unhealthy alcohol user PQRS Narrative: Smoking Status Current every day smoker Blood Pressure 125/80 Pain Intensity [Right Lower 5 Back] Scale Used Numeric (1 - 10) Hx Alcohol Use (MH) No Home Medications: Ambulatory Orders Omeprazole [PriLOSEC] 20 mg PO DAILY PRN 08/06/14 Hydrochlorothiazide [Hydrodiuril] 25 mg PO DAILY 04/20/17 amLODIPine [Norvasc] 10 mg PO DAILY 04/20/17 Acetaminophen [Tylenol Extra Strength] 1,000 mg PO Q8H PRN 09/11/17 Cyclobenzaprine [Flexeril] 10 mg PO HS PRN 09/11/17 Hydrocortisone Cream [Hydrocortisone 2.5% Cream] 1 applic TOPICAL BID PRN Ibuprofen [Motrin] 800 mg PO BID 08/04/18 Pravastatin Sodium [Pravachol] 40 mg PO HS 08/04/18 metFORMIN HCL 500 mg PO BID 08/04/18 Clobetasol Propionate [Temovate 0.05% Cream] 1 applic TOPICAL DAILY PRN 08/11/18 Biotin 10,000 mcg PO DAILY 03/22/19 Controlled Substance Measures - Controlled Substance Measures Is patient prescribed a controlled substance at discharge?: No
== END | disposition home or self-care (01) ==
LOC: PNWHC3 13:51
PROVIDERS: ATTEND Specialist
DX: M51.36 Other intervertebral disc degeneration, lumbar region (principal); M47.816 Spondylosis without myelopathy or radiculopathy, lumbar region; M46.1 Sacroiliitis, not elsewhere classified; F17.200 Nicotine dependence, unspecified, uncomplicated; Z98.890 Other specified postprocedural states; Z79.899 Other long term (current) drug therapy; Z79.890 Hormone replacement therapy; Z79.1 Long term (current) use of non-steroidal anti-inflammatories (NSAID); Z79.84 Long term (current) use of oral hypoglycemic drugs; Z79.52 Long term (current) use of systemic steroids
CPT/HCPCS: 99211

== ENCOUNTER 2022-05-23 10:50 | Emergency (ER) | payer OTHER ==
[2022-05-23 10:54] VITALS: TEMP 98.2
[2022-05-23] MEDS ORDERED: LIDOCAINE 1% INJ 10MG/ML (30 ML VIAL-PF) SQ ONE (11:02)
[2022-05-23] MEDS ORDERED: ACETAMINOPHEN TAB 325 MG TAB PO STA (11:08)
--- NOTE | 2022-05-23 11:08 | ED ---
Head Injury HPI - General Chief complaint: Head Injury Stated complaint: Fall, head injury Time Seen by Provider: 05/23/22 10:56 Source: patient, RN notes reviewed, old records reviewed Mode of arrival: ambulatory Limitations: no limitations - History of Present Illness Initial comments: This is a well-appearing 41-year-old female presenting with complaints of tripping and falling last night while playing with her dog at 11 PM hitting her head on the wall. She sustained a laceration to her forehead. Did go to urgent care this morning who recommended she come to the emergency room for CT scan. Tetanus is up-to-date. MD Complaint: head injury, fall -: hour(s) (12) Mechanism of Injury: other (Trip and fall last night. Hit head on wall) Location: frontal (left) Loss of Consciousness: no Previous Trauma to this Area: No Place: home Severity scale (1-10): 8 Quality: aching Consistency: constant Provoking factors: none known Other Injuries: none Associated Symptoms: other (laceration) - Related Data Home Medications Medication Instructions Recorded Confirmed Omeprazole [PriLOSEC] 20 mg PO DAILY PRN 08/06/14 08/22/19 amLODIPine [Norvasc] 10 mg PO DAILY 04/20/17 08/22/19 hydroCHLOROthiazide [Hydrodiuril] 25 mg PO DAILY 04/20/17 08/22/19 Acetaminophen [Tylenol Extra 1,000 mg PO Q8H PRN 09/11/17 08/22/19 Strength] Cyclobenzaprine [Flexeril] 10 mg PO HS PRN 09/11/17 08/22/19 Hydrocortisone Cream 1 applic TOPICAL BID PRN 09/11/17 08/22/19 [Hydrocortisone 2.5% Cream] Ibuprofen [Motrin] 800 mg PO BID 08/04/18 08/22/19 Pravastatin Sodium [Pravachol] 40 mg PO HS 08/04/18 08/22/19 metFORMIN HCL 500 mg PO BID 08/04/18 08/22/19 Clobetasol Propionate [Temovate 1 applic TOPICAL DAILY PRN 08/11/18 08/22/19 0.05% Cream] Biotin 10,000 mcg PO DAILY 03/22/19 08/22/19 Previous Rx's Medication Instructions Recorded Cephalexin [Keflex] 500 mg PO Q6HR 3 Days #12 cap 05/23/22 Allergies/Adverse reactions: Allergies Allergy/AdvReac Type Severity Reaction Status Date / Time bupropion [From Wellbutrin] Allergy CAUSED Verified 05/23/22 10:54 DIZZINESS Review of Systems ROS Statement: Those systems with pertinent positive or pertinent negative responses have been documented in the HPI. ROS Other: All systems not noted in ROS Statement are negative. Past Medical History Past Medical History: Chest Pain / Angina, GERD/Reflux, Hyperlipidemia, Hypertension, Syncope Additional Past Medical History / Comment(s): Diverticulitis(bowel resection ) History of Any Multi-Drug Resistant Organisms: None Reported Past Surgical History: Adenoidectomy, Bowel Resection, Tonsillectomy Additional Past Surgical History / Comment(s): cyst removal from left wrist, Past Anesthesia/Blood Transfusion Reactions: No Reported Reaction Past Psychological History: Anxiety, Depression Smoking Status: Current every day smoker Past Alcohol Use History: Occasional Past Drug Use History: Marijuana - Past Family History Father Family Medical History: Hypertension, Syncope Mother Additional Family Medical History / Comment(s): - due to brain aneurysm General Exam Limitations: no limitations General appearance: alert, in no apparent distress Head exam: Present: normocephalic, other (2 cm laceration left forehead) Eye exam: Present: normal appearance, PERRL, EOMI. Absent: scleral icterus, conjunctival injection, periorbital swelling, periorbital tenderness Pupils: Present: normal accommodation Neck exam: Present: full ROM. Absent: tenderness, meningismus Respiratory exam: Absent: respiratory distress, accessory muscle use Cardiovascular Exam: Present: tachycardia Extremities exam: Present: normal capillary refill Neurological exam: Present: alert, oriented X3, CN II-XII intact, normal gait Psychiatric exam: Present: normal affect, normal mood Skin exam: Present: warm, dry. Absent: cyanosis, diaphoretic, pallor Course Vital Signs 05/23/22 10:52 Temperature 98.2 F Pulse Rate 118 H Respiratory 22 Rate Blood Pressure 151/72 O2 Sat by Pulse 99 Oximetry Procedures - Laceration Laceration #1 Consent Obtained: verbal consent Indication: laceration Site: face Size (cm): 2 Description: linear Depth: simple, single layer Anesthetic Used: lidocaine 1% Anesthesia Technique: local infiltration Pre-repair: irrigated extensively Type of Sutures: nylon Size of Sutures: 6-0 Number of Sutures: 4 Technique: simple, interrupted Patient Tolerated Procedure: well, no complications Medical Decision Making - Medical Decision Making Patient presents with a laceration over her left eye sustained last night at 11 PM. Patient was seen at urgent care this morning and sent to the emergency room for evaluation and CT scan. CT of the brain interpreted by me shows no evidence of intracranial hemorrhage, midline shift or acute fracture. Radiologist interpretation no acute intracranial hemorrhage or midline shift. Globes are intact. Laceration is gaping and although there is a delayed closure is needed for cosmetic. Risks versus benefits were explained to patient. Patient will be placed on antibiotics. Wound was copiously irrigated with saline and closed with 4 sutures. Patient states tetanus shot is up-to-date. She was given Tylenol for her headache. Directed to return to the emergency room in 5 days for suture removal. She is agreeable to this plan of care. Case discussed with Dr. Massey. Disposition Clinical Impression: Head injury, Facial laceration Disposition: HOME SELF-CARE Condition: Good Instructions (If sedation given, give patient instructions): Head Injury (ED), Facial Laceration (ED) Additional Instructions: Sutures to be removed in 5 days. Return to the emergency room with any new or concerning symptoms including signs of infection or fever. Prescriptions: Cephalexin [Keflex] 500 mg PO Q6HR 3 Days #12 cap Is patient prescribed a controlled substance at d/c from ED?: No Referrals: Allyson Cameron MD [Primary Care Provider] - 1-2 days Time of Disposition: 11:47
--- NOTE | 2022-05-23 11:37 | CT ---
EXAMINATION TYPE: CT brain wo con DATE OF EXAM: 05/23/2022 COMPARISON: CT brain August 01, 2014 HISTORY: laceration above left orbit with headache and pain. CT DLP: 1082.4 mGycm. Automated Exposure Control for Dose Reduction was Utilized. TECHNIQUE: CT scan of the head is performed without contrast. FINDINGS: There is no acute intracranial hemorrhage, mass effect, or midline shift identified. The ventricles and sulci are within normal limits in size for patient's age. Pack-white matter different iation is maintained. The calvarium is intact. The globes are intact and the visualized sinuses are c lear. IMPRESSION: No acute intracranial hemorrhage or midline shift is seen.
[2022-05-23] MEDS ORDERED: BACITRACIN OINT 1 EACH PACKET TOPICAL ONE (11:46)
[2022-05-23 12:51] VITALS: BP 140/78; PULSE 80; RESP 20
== END 2022-05-23 12:50 | disposition home or self-care (01) ==
LOC: EC 10:50
DX: S01.81XA Laceration without foreign body of other part of head, initial encounter (principal); I10 Essential (primary) hypertension; E78.5 Hyperlipidemia, unspecified; K21.9 Gastro-esophageal reflux disease without esophagitis; G40.909 Epilepsy, unspecified, not intractable, without status epilepticus; F41.9 Anxiety disorder, unspecified; F32.A Depression, unspecified; F17.200 Nicotine dependence, unspecified, uncomplicated; F12.90 Cannabis use, unspecified, uncomplicated; Z88.8 Allergy status to other drugs, medicaments and biological substances; Z79.899 Other long term (current) drug therapy; Z79.84 Long term (current) use of oral hypoglycemic drugs; W01.198A Fall on same level from slipping, tripping and stumbling with subsequent striking against other object, initial encounter
CPT/HCPCS: 70450; 99284; 12011; J2001

== ENCOUNTER 2024-06-30 14:09 | Observation (INO) | payer OTHER ==
--- NOTE | 2024-06-30 14:37 | ED ---
Chest Pain HPI - General Source: patient, RN notes reviewed Mode of arrival: ambulatory Limitations: no limitations - History of Present Illness MD Complaint: chest pain Onset/Timin -: hour(s) <Fred Olmedo - Last Filed: 06/30/24 14:35> - General Source: patient, RN notes reviewed, old records reviewed <Neftali Nguyễn - Last Filed: 06/30/24 17:47> - General Chief Complaint: Chest Pain Stated Complaint: CHEST PAIN Time Seen by Provider: 06/30/24 14:23 - History of Present Illness Initial Comments: Quick note: This is a 44-year-old female presenting with left chest pain x 1 hour. Patient states pain radiates to her neck and head. Endorses associated dizziness, chest heaviness and difficulty concentrating. Endorses history of unknown heart issues but denies AMI. Denies [id number] medication use. (Fred Olmedo) Patient is a 44-year-old female who presents emergency department complaining of chest pain. States she has a history of chronic chest discomfort but states today was different. Typically will have a achiness on the left side of her chest that comes and goes on a daily basis or weekly basis however states that the date was different and that it did not resolve. Occurred approximately an hour prior to arrival. States it was in the left chest with some radiation up towards her left shoulder, left neck. Denies any shortness of breath. Denies any history of cardiac stents. Does have a history of hypertension, hyperlipidemia, GERD. Presents for further evaluation. Originally seen as a quick note. Presents for further evaluation at this time. I evaluated the patient when she was placed in a room, approximately an hour after arrival and workup initiated. (Neftali Nguyễn) - Related Data Home Medications Medication Instructions Recorded Confirmed No Known Home Medications 06/30/24 06/30/24 Allergies Allergy/AdvReac Type Severity Reaction Status Date / Time bupropion [From Wellbutrin] Allergy CAUSED Verified 06/30/24 15:48 DIZZINESS Review of Systems ROS Other: All systems not noted in ROS Statement are negative. <Fred Olmedo - Last Filed: 06/30/24 14:35> ROS Other: All systems not noted in ROS Statement are negative. <Neftali Nguyễn - Last Filed: 06/30/24 17:47> ROS Statement: Those systems with pertinent positive or pertinent negative responses have been documented in the HPI. Review of Systems: CONST: Denies fever EYES: Denies blurry vision ENT: Denies nasal congestion C/V: Endorses chest pain RESP: Denies shortness of breath GI: Denies abdominal pain : Denies dysuria SKIN: Denies rash. MSK: Denies joint pain. NEURO: Denies headache (Neftali Nguyễn) EKG Findings - EKG Comments: EKG Findings:: 12-lead Electrocardiogram Interpretation Note. EKG was reviewed and interpreted by myself. 12-lead ECG performed at 1421 is interpreted by me as revealing sinus tachycardia at a rate of 107 beats per minute. [place] is normal. [place] interval is 149 ms, QRS duration 79 ms, QTc is 369 ms.. There were no ST or T wave abnormalities to suggest myocardial ischemia or injury. R wave progression across the precordium was satisfactory. By my interpretation this EKG is non-diagnostic for acute ischemia. - EKG Results: EKG: interpreted by ERMD <Neftali Nguyễn - Last Filed: 06/30/24 17:47> Past Medical History Past Medical History: Chest Pain / Angina, GERD/Reflux, Hyperlipidemia, Hypertension, Syncope Additional Past Medical History / Comment(s): Diverticulitis(bowel resection ) History of Any Multi-Drug Resistant Organisms: None Reported Past Surgical History: Adenoidectomy, Bowel Resection, Tonsillectomy Additional Past Surgical History / Comment(s): cyst removal from left wrist, Past Anesthesia/Blood Transfusion Reactions: No Reported Reaction Past Psychological History: Anxiety, Depression Smoking Status: Current every day smoker Past Alcohol Use History: Abuse, Heavy Past Drug Use History: Marijuana - Past Family History Father Family Medical History: Hypertension, Syncope Mother Additional Family Medical History / Comment(s): - due to brain aneurysm <Fred Olmedo - Last Filed: 06/30/24 14:35> General Exam Limitations: no limitations <Fred Olmedo - Last Filed: 06/30/24 14:35> <Neftali Nguyễn - Last Filed: 06/30/24 17:47> - General Exam Comments Initial Comments: Visual Physical Exam Vital signs reviewed General: Well-appearing, nontoxic, no acute distress. Patient seated in wheelchair Head: Normocephalic, atraumatic Eyes: PERRLA, EOMI ENT: Airway patent Chest: Nonlabored breathing Skin: No visual rash, normal skin tone Neuro: Alert and oriented 3 Musculoskeletal: No gross abnormalities (Fred Olmedo) General: Appears in no acute distress. HEAD: Normal with no signs of head trauma. EYES: EOMI ENT: Hearing grossly intact, normal oropharynx. RESPIRATORY: Clear breath sounds bilaterally. No wheezes, rales, or rhonchi. C/V: Regular rate and rhythm. S1 and S2 auscultated, no edema, peripheral pulses 2+ and intact throughout. Chest pain is not reproducible on palpation. ABD: Abd is soft, nontender, nondistended EXT: Normal range of motion, no obvious deformity SKIN: No rashes or lesions observed on exposed skin. NEURO: Alert and oriented x 4. (Neftali Nguyễn) Course Vital Signs 06/30/24 06/30/24 06/30/24 14:21 16:05 16:32 Temperature 98.5 F Pulse Rate 107 H 101 H 78 Respiratory 19 20 Rate Blood Pressure 152/88 118/90 122/75 O2 Sat by Pulse 99 98 Oximetry Chest Pain MDM <Fred Olmedo - Last Filed: 06/30/24 14:35> <Neftali Nguyễn - Last Filed: 06/30/24 17:47> - MDM I completed the quick note portion of this chart signed LUIS Villalobos (Fred Olmedo) Was pt. sent in by a medical professional or institution ([facility], [facility], urgent care, hospital, or [facility]...) When possible be specific @ -No Did you speak to anyone other than the patient for history (EMS, parent, family, police, friend...)? What history was obtained from this source @ -No Did you review nursing and triage notes (agree or disagree)? Why? @ -I reviewed and agree with nursing and triage notes Were old charts reviewed (outside hosp., previous admission, EMS record, old EKG, old radiological studies, urgent care reports/EKG's, [facility] records)? Report findings @ -Compared today's EKG with EKG from August 2017. No obvious acute changes. Differential Diagnosis (chest pain, altered mental status, abdominal pain women, abdominal pain men, vaginal bleeding, weakness, fever, dyspnea, syncope, headache, dizziness, GI bleed, back pain, seizure, CVA, palpatations, mental health, musculoskeletal)? @ -Differential Chest Pain: Stable Angina, Unstable Angina, STEMI, NSTEMI Aortic Dissection, Pneumothorax, Musculoskeletal, Esophageal Spasm GERD, Cholecystitis, Pancreatitis, Zoster, this is not meant to be an all-inclusive list. EKG interpreted by me (3pts min.). @ -As above X-rays interpreted by me (1pt min.). @ -Chest x-ray reveals no obvious acute cardiopulmonary process. CT interpreted by me (1pt min.). @ -None done U/S interpreted by me (1pt. min.). @ -None done What testing was considered but not performed or refused? (CT, X-rays, U/S, labs)? Why? @ -None What meds were considered but not given or refused? Why? @ -None Did you discuss the management of the patient with other professionals (professionals i.e. , PA, [facility], lab, RT, psych nurse, social contact worker, parakeet raiser, teacher, chief financial officer, case liner)? Give summary @ -Attempted to contact [facility] for admission but patient left AMA. Was smoking cessation discussed for >3mins.? @ -No Was critical care preformed (if so, how long)? @ -No Were there social determinants of health that impacted care today? How? (Homelessness, low income, unemployed, alcoholism, drug addiction, transportation, low edu. Level, literacy, decrease access to med. care, usp, rehab)? @ -No Was there de-escalation of care discussed even if they declined (Discuss DNR or withdrawal of care, Hospice)? DNR status @ -No What co-morbidities impacted this encounter? (DM, HTN, Smoking, COPD, CAD, Cancer, CVA, ARF, Chemo, Hep., AIDS, mental health diagnosis, sleep apnea, morbid obesity)? @ -Hypertension, alcohol use. Was patient admitted / discharged? Hospital course, mention meds given and route, prescriptions, significant lab abnormalities, going to OR and other pertinent info. @ -Patient presents emergency department complaining of chest pain. We obtain cardiac workup. Patient started workup as a quick note. Patient already given 324 of aspirin. We will administer sublingual nitroglycerin tablets as well as IV fluids. She was in agreement this plan. Vitals are within acceptable limits. EKG shows no signs of acute ischemia. Chest x-ray unremarkable. Laboratory studies are remarkable for an undetectable troponin. Following 2 nitroglycerin tablets, patient's pain is resolved. Patient placed o n Nitropaste. I did recommend observation admission at this time and she was in agreement this plan. Cardiology consulted. Echo ordered. Will trend the troponin. She is symptom-free at time of admission. Vitals are within acceptable limits. [facility] was paged for admission however patient decided to leave AMA. I was notified by nursing staff that patient wanted to leave AMA. Patient left AGAINST MEDICAL ADVICE. The patient was apprised of the potential risks of leaving the hospital AGAINST MEDICAL ADVICE, including serious complications, permanent disability, and . At the time of my interview the patient, the patient was alert, oriented, and capable. Patient signed AMA form, which was witnessed and signed by nursing staff, and placed in patient's chart. I urged the patient to return to the hospital as soon as possible to complete evaluation and treatment. Undiagnosed new problem with uncertain prognosis? @ -No Drug Therapy requiring intensive monitoring for toxicity (Heparin, Nitro, Insulin, Cardizem)? @ -No Were any procedures done? @ -No Diagnosis/symptom? @ -Chest pain, left AGAINST MEDICAL ADVICE Acute, or Chronic, or Acute on Chronic? @ -Acute Uncomplicated (without systemic symptoms) or Complicated (systemic symptoms)? @ -Complicated Side effects of treatment? @ -No Exacerbation, Progression, or Severe Exacerbation? @ -No Poses a threat to life or bodily function? How? (Chest pain, [place], [place], pneumonia, PE, COPD, DKA, ARF, appy, cholecystitis, CVA, Diverticulitis, Homicidal, Suicidal, threat to staff... and all critical care pts) @ -Potentially yes (Neftali Nguyễn) Disposition <Fred Olmedo - Last Filed: 06/30/24 14:35> Time of Disposition: 17:00 <Neftali Nguyễn - Last Filed: 06/30/24 17:47> Clinical Impression: Chest pain, Left against medical advice Disposition: LEFT AGAINST MEDICAL ADVICE
--- NOTE | 2024-06-30 15:35 | XR ---
EXAMINATION TYPE: XR chest 2V DATE OF EXAM: 06/30/2024 3:29 PM COMPARISON: Chest radiographs from 09/11/2017 CLINICAL INDICATION: Female, 44 years old with history of Chest Pain; [facility] TECHNIQUE: XR chest 2V Frontal and lateral views of the chest. FINDINGS: Lungs/Pleura: There is no evidence of pleural effusion, focal consolidation, or pneumothorax. Pulmonary vascularity: Unremarkable. Heart/mediastinum: Cardiomediastinal silhouette is unremarkable. Musculoskeletal: No acute osseous pathology. IMPRESSION: No acute cardiopulmonary disease/process. [facility], , 06/30/2024 3:32 PM
[2024-06-30] MEDS: SODIUM CHLORIDE 0.9% 1,000 ML IV STA (16:06)
[2024-06-30] MEDS: ASPIRIN 81 MG PO STA (16:07)
[2024-06-30] MEDS: NITROGLYCERIN SL TABS 0.4 MG TAB SUBLINGUAL STA ×2 (16:07→16:32)
[2024-06-30 16:10] LABS: Basophils # (A) 0.1 k/uL (0-0.2); Basophils % (A) 1 %; Eosinophils # (A) 0.1 k/uL (0-0.7); Eosinophils % (A) 1 %; HCT 42.8 % (34.0-46.0); HGB 14.4 gm/dL (11.4-16.0); Lymphocytes # (A) 1.7 k/uL (1.0-4.8); Lymphocytes % (A) 20 %; MCH 31.5 pg (25.0-35.0); MCHC 33.6 g/dL (31.0-37.0); MCV 93.9 fL (80.0-100.0); Mean Platelet Volume 6.9; Monocytes # (A) 0.5 k/uL (0-1.0); Monocytes % (A) 5 %; Neutrophils # (A) 6.2 k/uL (1.3-7.7); Neutrophils % (A) 72 %; Platelet Count 277 k/uL (150-450); RBC 4.56 m/uL (3.80-5.40); RDW 13.5 % (11.5-15.5); WBC 8.6 k/uL (3.8-10.6)
[2024-06-30 16:23] LABS: ALT 19 U/L (4-34); AST 25 U/L (14-36); African American GFR (CKD) >90 (>60 ml/min/1.73 sqM); Albumin 3.7 g/dL (3.5-5.0); Alkaline Phosphatase 66 U/L (38-126); Anion Gap 4 mmol/L; Blood Urea Nitrogen 10 mg/dL (7-17); Calcium 9.3 mg/dL (8.4-10.2); Carbon Dioxide 24 mmol/L (22-30); Chloride 106 mmol/L (98-107); Glucose 89 mg/dL (74-99); Magnesium 1.7 mg/dL (1.6-2.3); Non-African American GFR(CKD) >90 (>60 ml/min/1.73 sqM); Potassium 4.2 mmol/L (3.5-5.1); Sodium 134 mmol/L (137-145); Total Bilirubin 0.1 mg/dL (0.2-1.3); Total Protein 5.7 g/dL (6.3-8.2)
[2024-06-30 16:26] LABS: Partial Thromboplastin Time 23.7 sec (22.0-30.0); Prothrombin Time 10.9 sec (10.0-12.5)
[2024-06-30] MEDS ORDERED: SODIUM CHLORIDE 0.9% 1,000 ML IV STA (17:06)
[2024-06-30] MEDS ORDERED: ACETAMINOPHEN TAB 325 MG TAB PO PRN (17:08)
[2024-06-30] MEDS ORDERED: NALOXONE 0.4 MG/ML 1 ML VIAL IV PRN (17:08)
[2024-06-30] MEDS ORDERED: SODIUM CHLORIDE 0.9% 1,000 ML IV SCH (17:15)
[2024-06-30] MEDS ORDERED: NITROGLYCERIN OINT 1 INCH/GM PACKET TOPICAL SCH (17:15)
[2024-06-30 17:57] VITALS: BP 129/81; PULSE 98; RESP 18; TEMP 99.4
[2024-07-01] MEDS ORDERED: HEPARIN SODIUM,PORCINE 5,000 UNIT/ML 1 ML VIAL SQ SCH
== END 2024-06-30 17:59 | disposition left against medical advice (07) ==
LOC: EC 14:09 → 6NMEDSUR 17:08
PROVIDERS: ADMIT Hospitalist; ATTEND Hospitalist
DX: R07.89 Other chest pain (principal); R00.0 Tachycardia, unspecified; M25.512 Pain in left shoulder; M54.2 Cervicalgia; I10 Essential (primary) hypertension; E78.5 Hyperlipidemia, unspecified; K21.9 Gastro-esophageal reflux disease without esophagitis; F17.200 Nicotine dependence, unspecified, uncomplicated; F10.90 Alcohol use, unspecified, uncomplicated; Z88.8 Allergy status to other drugs, medicaments and biological substances; Z53.29 Procedure and treatment not carried out because of patient's decision for other reasons
CPT/HCPCS: 99285; 36415; 93005; 85379; 80053; 83735; 84484; 85025; 85610; 85730; 71046; G0378